=== PATIENT | female | born 1955 | race Two or more races ===

== ENCOUNTER 2016-06-21 18:13 | Emergency (ER) | payer MEDICARE, MEDICAID ==
[~2016-06-21] VITALS: Ht 162.6 cm; Wt 88.9 kg
[~2016-06-21 18:13] MED LIST: ASPI-231 PO; CARI-277 PO; DIPH25CA66 PO; ENAL2.5T PO; GABA300C8 PO; METF-312 PO; METO25TA5 PO; NOR10T PO; OLAN10TA29 PO; OMEP20CA5 PO; SIMV-8 PO
[2016-06-21 18:30] VITALS: BP 108/48
[2016-06-21 19:25] LABS: Basophils # (auto) 0 uL; Basophils % (auto) 0.3 % (0.0-2.0); Eosinophils # (auto) 0.2 uL; Hematocrit 45.3 % (36.0-46.0); Hemoglobin 14.7 g/dL (12.2-16.2); Lymphocytes # (auto) 3.6 uL; Lymphocytes % (auto) 36.8 % (10.0-50.0); Mean Corpuscular Hemoglobin 27.5 pg (28.0-32.0); Mean Corpuscular Hgb Conc. 32.4 g/dL (32.0-36.0); Mean Platelet Volume 8.1 fL (7.4-10.4); Monocytes # (auto) 0.6 uL; Monocytes % (auto) 6.1 % (0.0-12.0); Neutrophils # (auto) 5.3 uL; Neutrophils % (auto) 54.8 % (37.0-80.0); Platelet Count (auto) 341 10^3/uL (140-450); Red Cell Distribution Width 13.2 % (11.6-16.0); SUSPECT VIEW TRANSMISSION; White Blood Cell 9.7 10^3/uL (4.4-10.8)
[2016-06-21 19:52] LABS: Albumin 3.9 g/dL (3.4-5.0); BUN/Creatinine Ratio 15.7; Bilirubin, Total 0.2 mg/dL (0.2-1.0); Calcium 9.2 mg/dL (8.5-10.1); Magnesium 1.9 mg/dL (1.6-2.6); Potassium 3.9 mmol/L (3.5-5.1); Total Protein 7.1 g/dL (6.4-8.2)
== END 2016-06-22 00:28 | disposition left against medical advice (07) ==
LOC: ER 18:17
DX: R79.9 Abnormal finding of blood chemistry, unspecified (principal); Z53.21 Procedure and treatment not carried out due to patient leaving prior to being seen by health care provider
CPT/HCPCS: 36415; 80053; 83735; 84484; 85025

== ENCOUNTER 2016-07-19 16:20 | Emergency (ER) | payer MEDICARE, MEDICAID ==
[~2016-07-19] VITALS: Ht 162.6 cm; Wt 89.4 kg
[2016-07-19 17:30] VITALS: BP 132/66
== END 2016-07-19 17:49 | disposition home or self-care (01) ==
LOC: ER 16:27
DX: G89.4 Chronic pain syndrome (principal); Z76.0 Encounter for issue of repeat prescription; Z88.1 Allergy status to other antibiotic agents; Z79.899 Other long term (current) drug therapy; Z79.82 Long term (current) use of aspirin; M32.9 Systemic lupus erythematosus, unspecified; J45.909 Unspecified asthma, uncomplicated; J44.9 Chronic obstructive pulmonary disease, unspecified; E11.9 Type 2 diabetes mellitus without complications; I10 Essential (primary) hypertension; I25.2 Old myocardial infarction; F20.9 Schizophrenia, unspecified; I25.10 Atherosclerotic heart disease of native coronary artery without angina pectoris; M79.7 Fibromyalgia; F17.210 Nicotine dependence, cigarettes, uncomplicated

== ENCOUNTER 2016-08-27 15:30 | Emergency (ER) | payer MEDICARE, MEDICAID ==
[~2016-08-27] VITALS: Ht 162.6 cm; Wt 84.8 kg
[2016-08-27 15:39] VITALS: BP 106/68
[2016-08-27 16:32] LABS: Urine Bilirubin Negative (Negative); Urine Color Brown (Yellow); Urine Hyaline Cast MANY /lpf (0 - 2); Urine Ketone TRACE (Negative); Urine Mucus FEW (None Seen); Urine Nitrite Negative (Negative); Urine RBC 658 /hpf (0 - 4); Urine Squamous Epithelial Cell MOD /hpf (<5)
[2016-08-27 16:39] LABS: Urine Blood 2+ /uL (Negative); Urine Glucose 1+ mg/dL (Normal)
== END 2016-08-27 23:14 | disposition left against medical advice (07) ==
LOC: ER 15:30
DX: R22.0 Localized swelling, mass and lump, head (principal); Z53.21 Procedure and treatment not carried out due to patient leaving prior to being seen by health care provider
CPT/HCPCS: 81001; 87086

== ENCOUNTER 2017-04-17 14:26 | Emergency (ER) | payer MEDICARE, MEDICAID ==
[~2017-04-17] VITALS: Ht 162.6 cm; Wt 86.2 kg
[~2017-04-17 14:26] MED LIST changes: +GABA-497 PO; -GABA300C8 PO; -METF-312 PO; +METF-370 PO; -OMEP20CA5 PO; +OMEP20CA74 PO
[2017-04-17] MEDS ORDERED: ASPirin 81 mg TAB PO ONE (15:00)
[2017-04-17 15:07] LABS: Basophils # (auto) 0 uL; Basophils % (auto) 0.3 % (0.0-2.0); Eosinophils # (auto) 0.1 uL; Eosinophils % (auto) 1.4 % (0.0-7.0); Hemoglobin 11.9 g/dL (12.2-16.2); Lymphocytes # (auto) 3.8 uL; Mean Corpuscular Hgb Conc. 31.6 g/dL (32.0-36.0); Mean Platelet Volume 7.5 fL (6.9-10.8); Nucleated Red Blood Cells % 0.1 %
[2017-04-17 15:09] LABS: Hematocrit 37.6 % (36.0-46.0); Lymphocytes % (auto) 43.4 % (10.0-50.0); Mean Corpuscular Hemoglobin 23.6 pg (28.0-32.0); Mean Corpuscular Volume 74.7 fL (80.0-100.0); Monocytes # (auto) 0.6 uL; Neutrophils # (auto) 4.2 uL; Neutrophils % (auto) 47.9 % (37.0-80.0); Platelet Count (auto) 304 10^3/uL (140-450); Red Cell Distribution Width 18.8 % (11.8-14.3); White Blood Cell 8.8 10^3/uL (4.4-10.8)
[2017-04-17 15:28] LABS: Albumin 3.5 g/dL (3.4-5.0); Alkaline Phosphatase 105 U/L (45-117); Anion Gap 12 (5-15); Aspartate Aminotransferase 9 U/L (15-37); BUN/Creatinine Ratio 17.3; Bilirubin, Total 0.3 mg/dL (0.2-1.0); Blood Urea Nitrogen 9 mg/dL (7-18); Calcium 9.1 mg/dL (8.5-10.1); Carbon Dioxide 22 mmol/L (21-32); Chloride 106 mmol/L (98-107); GFR African American 155 mL/min; GFR Non-African American 128 mL/min; Glucose 133 mg/dL (74-106); Potassium 4.1 mmol/L (3.5-5.1); Sodium 140 mmol/L (136-145); Total Protein 6.6 g/dL (6.4-8.2)
[2017-04-17] MEDS ORDERED: HYDROcodone-ACET 5/325MG TAB PO ONE (16:30)
[2017-04-17 16:55] VITALS: BP 116/67
[2017-04-17 17:43] LABS: Platelet Estimate Adequate
[2017-04-17 17:44] LABS: Hypochromia Moderate; Microcytosis Slight
== END 2017-04-17 18:00 | disposition home or self-care (01) ==
LOC: EDBD 14:26 → ER 14:26
DX: R07.89 Other chest pain (principal); E11.9 Type 2 diabetes mellitus without complications; I10 Essential (primary) hypertension; J45.909 Unspecified asthma, uncomplicated; I25.2 Old myocardial infarction; I25.10 Atherosclerotic heart disease of native coronary artery without angina pectoris; Z88.1 Allergy status to other antibiotic agents; Z90.710 Acquired absence of both cervix and uterus; Z79.899 Other long term (current) drug therapy
CPT/HCPCS: 36415; 71010; 80053; 84484; 85025

== ENCOUNTER 2017-07-18 02:10 | Emergency (ER) | payer MEDICARE, MEDICAID ==
[~2017-07-18] VITALS: Ht 160 cm; Wt 90.7 kg
[~2017-07-18 02:10] MED LIST changes: -GABA-497 PO; +GABA300C10 PO
[2017-07-18] MEDS ORDERED: IBUPROFEN 600 MG TAB PO ONE (02:30)
[2017-07-18] MEDS ORDERED: ACETAMINOPHEN 500 MG TAB PO ONE (02:30)
[2017-07-18 02:47] LABS: Eosinophils # (auto) 0 uL; Mean Corpuscular Hemoglobin 24.6 pg (28.0-32.0); Monocytes # (auto) 1.8 uL; Nucleated Red Blood Cells % 0.1 %; White Blood Cell 13.5 10^3/uL (4.4-10.8)
[2017-07-18 02:50] LABS: Basophils # (auto) 0.1 uL; Basophils % (auto) 0.4 % (0.0-2.0); Eosinophils % (auto) 0.1 % (0.0-7.0); Hematocrit 36.4 % (36.0-46.0); Hemoglobin 11.7 g/dL (12.2-16.2); Lymphocytes # (auto) 1.6 uL; Lymphocytes % (auto) 11.8 % (10.0-50.0); Mean Corpuscular Hgb Conc. 32.1 g/dL (32.0-36.0); Mean Corpuscular Volume 76.5 fL (80.0-100.0); Monocytes % (auto) 13.2 % (0.0-12.0); Neutrophils # (auto) 10.1 uL; Neutrophils % (auto) 74.5 % (37.0-80.0); Platelet Count (auto) 232 10^3/uL (140-450); Red Blood Cells 4.76 10^6/uL (4.0-5.20); Red Cell Distribution Width 19.9 % (11.8-14.3)
[2017-07-18 03:13] LABS: Alanine Aminotransferase 14 U/L (13-56); Albumin 3.2 g/dL (3.4-5.0); Anion Gap 7 (5-15); Aspartate Aminotransferase 10 U/L (15-37); BUN/Creatinine Ratio 12.7; Blood Urea Nitrogen 7 mg/dL (7-18); Calcium 8.6 mg/dL (8.5-10.1); Carbon Dioxide 27 mmol/L (21-32); Chloride 109 mmol/L (98-107); GFR African American 145 mL/min; GFR Non-African American 119 mL/min; Glucose 152 mg/dL (74-106); Potassium 3.7 mmol/L (3.5-5.1); Sodium 143 mmol/L (136-145)
[2017-07-18 03:17] LABS: Alkaline Phosphatase 87 U/L (45-117); Bilirubin, Total 0.3 mg/dL (0.2-1.0); Total Protein 6.7 g/dL (6.4-8.2)
[2017-07-18 03:30] LABS: INR 0.97 (0.9-1.15); Partial Thromboplastin Time 26.3 sec (22.64-33.71); Prothrombin Time 10.6 sec (9.37-12.3)
[2017-07-18] MEDS ORDERED: SODIUM CHLORIDE 0.9% 1,000 ML IV ONE (08:01)
[2017-07-18] MEDS ORDERED: ASPirin 81 mg TAB PO ONE (08:15)
[2017-07-18] MEDS ORDERED: PROMETHAZINE HCL 25 MG/ML 1ML IV ONE (12:15)
[2017-07-18] MEDS ORDERED: KETOROLAC TROMETH 30 MG/ML 1ML VIAL IV ONE (12:15)
[2017-07-18 14:57] VITALS: BP 126/69
== END 2017-07-18 17:37 | disposition home or self-care (01) ==
LOC: EDBD 02:10 → ER 02:17
DX: R07.89 Other chest pain (principal); E11.65 Type 2 diabetes mellitus with hyperglycemia; N39.0 Urinary tract infection, site not specified; K44.9 Diaphragmatic hernia without obstruction or gangrene; E44.1 Mild protein-calorie malnutrition; J45.909 Unspecified asthma, uncomplicated; I25.10 Atherosclerotic heart disease of native coronary artery without angina pectoris; I50.9 Heart failure, unspecified; J44.9 Chronic obstructive pulmonary disease, unspecified; K21.9 Gastro-esophageal reflux disease without esophagitis; E11.9 Type 2 diabetes mellitus without complications; E78.5 Hyperlipidemia, unspecified; I11.0 Hypertensive heart disease with heart failure; I25.2 Old myocardial infarction; F17.210 Nicotine dependence, cigarettes, uncomplicated; Z90.49 Acquired absence of other specified parts of digestive tract; E66.9 Obesity, unspecified; Z68.35 Body mass index [BMI] 35.0-35.9, adult; Z90.710 Acquired absence of both cervix and uterus; Z79.82 Long term (current) use of aspirin
CPT/HCPCS: 36415; 71046; 80053; 81002; 83735; 83880; 84443; 84484; 85025; 85610; 85730; 93005; 94761; 96361; 96374; 96375; 99285; J1885; J2550; J7030

== ENCOUNTER 2017-07-26 21:33 | Emergency (ER) | payer MEDICARE, MEDICAID ==
[~2017-07-26] VITALS: Ht 162.6 cm; Wt 79.8 kg
[2017-07-26 22:50] VITALS: BP 108/53
[2017-07-26] MEDS ORDERED: TRIAMCINOLONE 40MG/ML 1ML VIAL IM ONE (23:00)
== END 2017-07-26 23:49 | disposition home or self-care (01) ==
LOC: ER 21:33
DX: T78.40XA Allergy, unspecified, initial encounter (principal); N39.0 Urinary tract infection, site not specified; I11.0 Hypertensive heart disease with heart failure; I50.9 Heart failure, unspecified; K21.9 Gastro-esophageal reflux disease without esophagitis; J44.9 Chronic obstructive pulmonary disease, unspecified; I25.10 Atherosclerotic heart disease of native coronary artery without angina pectoris; F17.210 Nicotine dependence, cigarettes, uncomplicated; E11.9 Type 2 diabetes mellitus without complications; E78.5 Hyperlipidemia, unspecified; Z90.710 Acquired absence of both cervix and uterus; Z79.82 Long term (current) use of aspirin; Z88.1 Allergy status to other antibiotic agents
CPT/HCPCS: 96372; 99283; J3301

== ENCOUNTER 2017-10-05 00:13 | Emergency (ER) | payer MEDICAID, MEDICARE ==
[~2017-10-05] VITALS: Ht 162.6 cm; Wt 73.9 kg
[2017-10-05 01:28] LABS: Basophils # (auto) 0.1 uL; Eosinophils # (auto) 0.1 uL; Mean Corpuscular Hemoglobin 25.3 pg (28.0-32.0); Monocytes # (auto) 0.8 uL
[2017-10-05 01:30] LABS: Basophils % (auto) 0.6 % (0.0-2.0); Eosinophils % (auto) 1.1 % (0.0-7.0); Hematocrit 42.5 % (36.0-46.0); Hemoglobin 13.7 g/dL (12.2-16.2); Lymphocytes # (auto) 2.2 uL; Lymphocytes % (auto) 26.5 % (10.0-50.0); Mean Corpuscular Hgb Conc. 32.3 g/dL (32.0-36.0); Mean Corpuscular Volume 78.3 fL (80.0-100.0); Monocytes % (auto) 9.4 % (0.0-12.0); Neutrophils # (auto) 5.2 uL; Neutrophils % (auto) 62.4 % (37.0-80.0); Nucleated Red Blood Cells % 0.2 %; Platelet Count (auto) 327 10^3/uL (140-450); Red Blood Cells 5.43 10^6/uL (4.0-5.20); Red Cell Distribution Width 18.9 % (11.8-14.3); White Blood Cell 8.3 10^3/uL (4.4-10.8)
[2017-10-05 01:35] LABS: INR 0.88 (0.9-1.15); Partial Thromboplastin Time 25.4 sec (22.64-33.71); Prothrombin Time 9.6 sec (9.37-12.3)
[2017-10-05 01:42] LABS: Albumin 3.3 g/dL (3.4-5.0); Amylase 47 U/L (25-115); Anion Gap 12 (5-15); BUN/Creatinine Ratio 17.3; Blood Urea Nitrogen 9 mg/dL (7-18); Calcium 8.8 mg/dL (8.5-10.1); Carbon Dioxide 23 mmol/L (21-32); Chloride 106 mmol/L (98-107); GFR African American 154 mL/min; GFR Non-African American 127 mL/min; Glucose 209 mg/dL (74-106); Lipase 210 U/L (73-393); Magnesium 2.1 mg/dL (1.6-2.6); Sodium 141 mmol/L (136-145)
[2017-10-05 01:51] LABS: Alanine Aminotransferase 24 U/L (13-56); Alkaline Phosphatase 117 U/L (45-117); Aspartate Aminotransferase 21 U/L (15-37); Bilirubin, Total 0.2 mg/dL (0.2-1.0); Total Protein 6.6 g/dL (6.4-8.2)
[2017-10-05 01:52] LABS: Urine Bacteria FEW /hpf (None Seen); Urine Blood 1+ /uL (Negative); Urine Specific Gravity 1.012 (1.001-1.035); Urine WBC 2 /hpf (0 - 5)
[2017-10-05 06:12] VITALS: BP 103/81
[2017-10-05] MEDS ORDERED: SODIUM CHLORIDE 0.9% 1,000 ML IV ONE ×2 (06:54)
[2017-10-05] MEDS ORDERED: KETOROLAC TROMETH 30 MG/ML 1ML VIAL IV ONE (07:00)
== END 2017-10-05 09:08 | disposition home or self-care (01) ==
LOC: ER 00:13
DX: N20.0 Calculus of kidney (principal); J45.909 Unspecified asthma, uncomplicated; I25.10 Atherosclerotic heart disease of native coronary artery without angina pectoris; I50.9 Heart failure, unspecified; J44.9 Chronic obstructive pulmonary disease, unspecified; E11.9 Type 2 diabetes mellitus without complications; K21.9 Gastro-esophageal reflux disease without esophagitis; E78.5 Hyperlipidemia, unspecified; I11.0 Hypertensive heart disease with heart failure; F17.210 Nicotine dependence, cigarettes, uncomplicated; R05 Cough; I25.2 Old myocardial infarction; Z88.1 Allergy status to other antibiotic agents; Z79.899 Other long term (current) drug therapy; Z79.82 Long term (current) use of aspirin; Z90.710 Acquired absence of both cervix and uterus; Z90.49 Acquired absence of other specified parts of digestive tract
CPT/HCPCS: 36415; 71046; 74176; 80053; 81001; 82150; 83690; 83735; 84484; 85025; 85610; 85730; 93005; 96374; 99285; J1885

== ENCOUNTER 2017-10-12 20:43 | Inpatient (IN) | payer MEDICARE ==
[~2017-10-12] VITALS: Ht 162.6 cm; Wt 77.9 kg
[2017-10-12 22:30] LABS: Basophils # (auto) 0 uL; Eosinophils # (auto) 0.1 uL; Hematocrit 41.7 % (36.0-46.0); Nucleated Red Blood Cells % 0.1 %
[2017-10-12 22:31] LABS: Basophils % (auto) 0.4 % (0.0-2.0); Eosinophils % (auto) 1.2 % (0.0-7.0); Hemoglobin 13.4 g/dL (12.2-16.2); Lymphocytes % (auto) 33.1 % (10.0-50.0); Mean Corpuscular Hemoglobin 25.4 pg (28.0-32.0); Mean Corpuscular Hgb Conc. 32.2 g/dL (32.0-36.0); Mean Corpuscular Volume 78.8 fL (80.0-100.0); Monocytes # (auto) 0.8 uL; Monocytes % (auto) 8.5 % (0.0-12.0); Neutrophils # (auto) 5.1 uL; Neutrophils % (auto) 56.8 % (37.0-80.0); Platelet Count (auto) 290 10^3/uL (140-450); Red Cell Distribution Width 18.3 % (11.8-14.3); White Blood Cell 9.1 10^3/uL (4.4-10.8)
[2017-10-12 22:48] LABS: Alanine Aminotransferase 20 U/L (13-56); Albumin 3.3 g/dL (3.4-5.0); Amylase 39 U/L (25-115); Anion Gap 10 (5-15); Aspartate Aminotransferase 8 U/L (15-37); BUN/Creatinine Ratio 13.6; Blood Urea Nitrogen 6 mg/dL (7-18); Calcium 8.8 mg/dL (8.5-10.1); Carbon Dioxide 23 mmol/L (21-32); Chloride 106 mmol/L (98-107); GFR African American 187 mL/min; GFR Non-African American 155 mL/min; Glucose 167 mg/dL (74-106); Lipase 167 U/L (73-393); Potassium 3.7 mmol/L (3.5-5.1); Sodium 139 mmol/L (136-145)
[2017-10-12 22:53] LABS: Alkaline Phosphatase 102 U/L (45-117); Bilirubin, Total 0.3 mg/dL (0.2-1.0); INR 0.92 (0.9-1.15); Total Protein 7.1 g/dL (6.4-8.2)
[2017-10-13 01:12] LABS: Urine Bacteria NONE SEEN /hpf (None Seen); Urine Blood Negative /uL (Negative); Urine Specific Gravity 1.016 (1.001-1.035); Urine WBC 1 /hpf (0 - 5)
[2017-10-13] MEDS ORDERED: METOCLOPRAMIDE HCL 5MG/ml INJ 2ml VIAL IV ONE (08:00)
[2017-10-13] MEDS ORDERED: KETOROLAC TROMETH 30 MG/ML 1ML VIAL IV ONE (08:00)
[2017-10-13] MEDS ORDERED: NITROGLYCERIN 0.4 MG SL TAB SL PRN (08:30)
[2017-10-13] MEDS ORDERED: MORPHINE SULFATE 8mg/ml INJ SDV IV PRN ×2 (08:30→08:45)
[2017-10-13] MEDS ORDERED: ACETAMINOPHEN 500 MG TAB PO PRN (08:45)
[2017-10-13] MEDS ORDERED: LORazepam 0.5 MG TAB PO PRN (08:45)
[2017-10-13] MEDS: SODIUM CHLORIDE 0.9% 1,000 ML IV SCH ×2 (08:59→18:31)
[2017-10-13 10:30] VITALS: BP 133/76
[2017-10-13] MEDS ORDERED: MANNITOL 20 % (20GM/100ML) 62.5 ML IV ONE (10:30)
[2017-10-13] MEDS: HYDROcodone-ACET 5/325MG TAB PO PRN (12:45)
[2017-10-13 13:00] VITALS: BP 133/76
[2017-10-13] MEDS: OXYBUTYNIN CHL 5 MG TAB PO SCH ×2 (15:33→21:51)
[2017-10-13 16:40] VITALS: BP 118/75
[2017-10-13] MEDS: MORPHINE SULFATE 8mg/ml INJ SDV IV PRN ×2 (16:58→21:00)
[2017-10-13 20:00] VITALS: BP 123/73
[2017-10-13 22:00] VITALS: BP 123/73
[2017-10-14] MEDS: MORPHINE SULFATE 8mg/ml INJ SDV IV PRN ×3 (01:29→20:28)
[2017-10-14] MEDS: SODIUM CHLORIDE 0.9% 1,000 ML IV SCH ×3 (04:31→23:43)
[2017-10-14 05:22] VITALS: BP 102/53
[2017-10-14] MEDS: OXYBUTYNIN CHL 5 MG TAB PO SCH ×3 (05:32→21:30)
[2017-10-14 09:13] VITALS: BP 102/58
[2017-10-14] MEDS: HYDROcodone-ACET 5/325MG TAB PO PRN ×3 (09:52→23:32)
[2017-10-14 13:00] VITALS: BP 102/60
[2017-10-14] MEDS: PROMETHAZINE HCL 25 MG/ML 1ML IV PRN (13:14)
[2017-10-14] MEDS ORDERED: MANNITOL 20% SOLN 100 gm/500ml 100 ML IV ONE (15:45)
[2017-10-14 17:10] VITALS: BP 124/72
[2017-10-14] MEDS ORDERED: PANTOPRAZOLE 40 MG TAB PO ONE ×2 (17:13→18:22)
[2017-10-14] MEDS ORDERED: LEVOFLOXACIN 500MG 100 ML IV ONE (18:15)
[2017-10-14] MEDS ORDERED: TAMSULOSIN HYDROCHLORIDE 0.4 MG CAP PO ONE (18:15)
[2017-10-14 20:00] VITALS: BP 115/66
[2017-10-14 22:00] VITALS: BP 112/62
[2017-10-15] MEDS: MORPHINE SULFATE 8mg/ml INJ SDV IV PRN ×5 (00:40→21:47)
[2017-10-15 05:00] VITALS: BP 109/70
[2017-10-15] MEDS: OXYBUTYNIN CHL 5 MG TAB PO SCH ×3 (05:44→21:47)
[2017-10-15 06:55] LABS: Basophils # (auto) 0 uL; Eosinophils # (auto) 0.1 uL; Hemoglobin 12.3 g/dL (12.2-16.2); Mean Corpuscular Hemoglobin 25.2 pg (28.0-32.0); Mean Corpuscular Volume 78.9 fL (80.0-100.0); Monocytes # (auto) 0.6 uL
[2017-10-15 06:58] LABS: Basophils % (auto) 0.2 % (0.0-2.0); Eosinophils % (auto) 1.5 % (0.0-7.0); Hematocrit 38.4 % (36.0-46.0); Lymphocytes # (auto) 1.7 uL; Monocytes % (auto) 8.1 % (0.0-12.0); Neutrophils # (auto) 4.6 uL; Neutrophils % (auto) 65.2 % (37.0-80.0); Nucleated Red Blood Cells % 0.1 %; Platelet Count (auto) 243 10^3/uL (140-450); Red Blood Cells 4.87 10^6/uL (4.0-5.20); Red Cell Distribution Width 18.3 % (11.8-14.3)
[2017-10-15 07:08] LABS: BUN/Creatinine Ratio 32.1; Calcium 8.4 mg/dL (8.5-10.1)
[2017-10-15 07:58] VITALS: BP 122/64
[2017-10-15] MEDS: HYDROcodone-ACET 5/325MG TAB PO PRN ×2 (09:15→15:33)
[2017-10-15] MEDS: LEVOFLOXACIN 500MG 100 ML IV SCH (09:15)
[2017-10-15] MEDS: SODIUM CHLORIDE 0.9% 1,000 ML IV SCH ×2 (09:16→20:31)
[2017-10-15 11:56] VITALS: BP 106/58
[2017-10-15] MEDS: diphenhdrAMINE HCL 25 MG CAP PO PRN (12:19)
[2017-10-15] MEDS ORDERED: POTASSIUM CHL 20 Meq TABLET PO ONE (13:00)
[2017-10-15 16:02] VITALS: BP 102/59
[2017-10-15] MEDS ORDERED: KETOROLAC TROMETH 30 MG/ML 1ML VIAL IV ONE (21:30)
[2017-10-15 22:00] VITALS: BP 116/55
[2017-10-16] MEDS: MORPHINE SULFATE 8mg/ml INJ SDV IV PRN ×5 (02:01→23:35)
[2017-10-16] MEDS: HYDROcodone-ACET 10/325MG TAB PO PRN ×3 (02:56→21:23)
[2017-10-16 05:00] VITALS: BP 125/64
[2017-10-16 05:58] LABS: INR 0.93 (0.9-1.15); Partial Thromboplastin Time 26.6 sec (23.78-33.04)
[2017-10-16] MEDS: SODIUM CHLORIDE 0.9% 1,000 ML IV SCH ×2 (06:00→17:11)
[2017-10-16] MEDS: OXYBUTYNIN CHL 5 MG TAB PO SCH ×3 (06:00→21:23)
[2017-10-16 06:06] LABS: BUN/Creatinine Ratio 26.2; Calcium 8.5 mg/dL (8.5-10.1); Potassium 4.1 mmol/L (3.5-5.1)
[2017-10-16 06:08] LABS: Basophils # (auto) 0 uL; Basophils % (auto) 0.3 % (0.0-2.0); Eosinophils # (auto) 0.1 uL; Hemoglobin 12.2 g/dL (12.2-16.2); Lymphocytes # (auto) 2.2 uL; Monocytes # (auto) 0.8 uL; White Blood Cell 8.5 10^3/uL (4.4-10.8)
[2017-10-16 06:09] LABS: Eosinophils % (auto) 1.7 % (0.0-7.0); Hematocrit 37.9 % (36.0-46.0); Lymphocytes % (auto) 25.3 % (10.0-50.0); Mean Corpuscular Hemoglobin 25.6 pg (28.0-32.0); Mean Corpuscular Hgb Conc. 32.2 g/dL (32.0-36.0); Mean Corpuscular Volume 79.4 fL (80.0-100.0); Neutrophils # (auto) 5.4 uL; Neutrophils % (auto) 63.7 % (37.0-80.0); Nucleated Red Blood Cells % 0.1 %; Platelet Count (auto) 238 10^3/uL (140-450); Red Blood Cells 4.77 10^6/uL (4.0-5.20); Red Cell Distribution Width 18.4 % (11.8-14.3)
[2017-10-16 08:29] VITALS: BP 102/48
[2017-10-16] MEDS: LEVOFLOXACIN 500MG 100 ML IV SCH (10:25)
[2017-10-16] MEDS: diphenhdrAMINE HCL 25 MG CAP PO PRN (10:25)
[2017-10-16 12:55] VITALS: BP 97/51
[2017-10-16] MEDS ORDERED: LIDOCAINE 1% (LOCAL ANESTH.) PF 5ml SDV ONE (14:34)
[2017-10-16] MEDS ORDERED: ETOMIDATE (2MG/ML) 20ML VIAL IV ONE (14:36)
[2017-10-16] MEDS ORDERED: ROCURONIUM 10MG/ML 10ML VIAL IV ONE (14:36)
[2017-10-16] MEDS ORDERED: MIDAZOLAM HCL 1MG/1ML-2 ML VIAL ONE (14:36)
[2017-10-16] MEDS ORDERED: METOCLOPRAMIDE HCL 5MG/ml INJ 2ml VIAL ONE (14:40)
[2017-10-16] MEDS ORDERED: fentaNYL CITRATE 100 MCG/2 ML VL ONE (14:47)
[2017-10-16] MEDS ORDERED: ONDANSETRON HCL 4 MG/2 ML VIAL IV ONE (15:00)
[2017-10-16] MEDS ORDERED: NALOXONE HCL 0.4 MG/ML VIAL IV PRN (15:00)
[2017-10-16] MEDS ORDERED: ACCU-CHEK COMFORT CURVE STRIP VI ONE (15:00)
[2017-10-16] MEDS ORDERED: GLYCOPYRROLATE 0.2 MG/ML 1ML VIAL ONE (15:33)
[2017-10-16] MEDS ORDERED: NEOSTIGMINE 1 MG/ML INJ (10mg/10ML VIAL) ONE (15:33)
[2017-10-16] MEDS: MORPHINE SULFATE 4 MG/ML SYR/VIAL IV PRN ×2 (16:00→16:15)
[2017-10-16 17:32] VITALS: BP 106/51
[2017-10-16] MEDS: TEMAZEPAM 15 MG CAP PO PRN (21:23)
[2017-10-16 22:00] VITALS: BP 113/64
[2017-10-16] MEDS: PROMETHAZINE HCL 25 MG/ML 1ML IV PRN (23:35)
[2017-10-17] MEDS: SODIUM CHLORIDE 0.9% 1,000 ML IV SCH ×2 (04:23→12:41)
[2017-10-17] MEDS: MORPHINE SULFATE 8mg/ml INJ SDV IV PRN ×5 (04:23→20:40)
[2017-10-17 05:45] VITALS: BP 103/57
[2017-10-17] MEDS: OXYBUTYNIN CHL 5 MG TAB PO SCH ×3 (06:18→21:38)
[2017-10-17 09:00] VITALS: BP 123/71
[2017-10-17] MEDS: LEVOFLOXACIN 500MG 100 ML IV SCH (09:48)
[2017-10-17] MEDS: diphenhdrAMINE HCL 25 MG CAP PO PRN ×2 (09:49→21:42)
[2017-10-17] MEDS: HYDROcodone-ACET 10/325MG TAB PO PRN ×2 (10:56→19:22)
[2017-10-17 13:00] VITALS: BP 99/55
[2017-10-17 17:18] VITALS: BP 97/54
[2017-10-17] MEDS: TEMAZEPAM 15 MG CAP PO PRN (21:38)
[2017-10-17 22:00] VITALS: BP 111/63
[2017-10-18] MEDS: MORPHINE SULFATE 8mg/ml INJ SDV IV PRN ×4 (00:52→14:17)
[2017-10-18 05:00] VITALS: BP 101/59
[2017-10-18] MEDS: OXYBUTYNIN CHL 5 MG TAB PO SCH ×2 (05:30→14:17)
[2017-10-18] MEDS: diphenhdrAMINE HCL 25 MG CAP PO PRN ×2 (05:32→11:47)
[2017-10-18] MEDS: HYDROcodone-ACET 10/325MG TAB PO PRN (08:58)
[2017-10-18 09:00] VITALS: BP 108/64
[2017-10-18] MEDS: LEVOFLOXACIN 500MG 100 ML IV SCH (12:42)
[2017-10-18 13:00] VITALS: BP 111/69
== END 2017-10-18 16:00 | disposition home or self-care (01) | DRG 691 ==
LOC: ER 20:43 → TELE 20:44 → TELE-WESTW 10-13 09:59 → WEST WING 10-15 12:58
PROVIDERS: ADMIT Internal Medicine; ATTEND Internal Medicine
PROC: 0T768DZ Dilation of Right Ureter with Intraluminal Device, Via Natural or Artificial Opening Endoscopic (ICD-10-PCS; 2017-10-16)
PROC: 0TF6XZZ Fragmentation in Right Ureter, External Approach (ICD-10-PCS; principal; 2017-10-16 14:35)
DX: N13.0 Hydronephrosis with ureteropelvic junction obstruction (principal); E11.40 Type 2 diabetes mellitus with diabetic neuropathy, unspecified; M32.9 Systemic lupus erythematosus, unspecified; I11.0 Hypertensive heart disease with heart failure; E11.65 Type 2 diabetes mellitus with hyperglycemia; I50.9 Heart failure, unspecified; D57.1 Sickle-cell disease without crisis; N13.2 Hydronephrosis with renal and ureteral calculous obstruction; F20.9 Schizophrenia, unspecified; E78.5 Hyperlipidemia, unspecified; J44.9 Chronic obstructive pulmonary disease, unspecified; K44.9 Diaphragmatic hernia without obstruction or gangrene; K21.9 Gastro-esophageal reflux disease without esophagitis; E66.9 Obesity, unspecified; F32.9 Major depressive disorder, single episode, unspecified; F41.9 Anxiety disorder, unspecified; G47.00 Insomnia, unspecified; I70.8 Atherosclerosis of other arteries; I25.10 Atherosclerotic heart disease of native coronary artery without angina pectoris; F17.210 Nicotine dependence, cigarettes, uncomplicated; M79.7 Fibromyalgia; Z82.3 Family history of stroke; Z82.49 Family history of ischemic heart disease and other diseases of the circulatory system; Z83.3 Family history of diabetes mellitus; Z90.710 Acquired absence of both cervix and uterus; Z88.1 Allergy status to other antibiotic agents; Z79.899 Other long term (current) drug therapy; I25.2 Old myocardial infarction; Z90.49 Acquired absence of other specified parts of digestive tract; Z80.8 Family history of malignant neoplasm of other organs or systems; Z68.29 Body mass index [BMI] 29.0-29.9, adult
CPT/HCPCS: 36415; 71046; 74018; 74176; 76775; 80048; 80053; 81001; 82150; 82962; 83690; 83735; 84484; 85025; 85610; 85730; 86850; 86900; 86901; 87086; 93005; 96361; 96365; 96375; 97116; 97163; J1885; J1956; J2250; J2270

== ENCOUNTER 2017-11-07 02:49 | Inpatient (IN) | payer MEDICARE ==
[~2017-11-07] VITALS: Ht 162.6 cm; Wt 78.2 kg
[2017-11-07 04:26] LABS: Eosinophils % (auto) 1.3 % (0.0-7.0); Hematocrit 43.6 % (36.0-46.0); Lymphocytes # (auto) 3.1 uL; Lymphocytes % (auto) 35.1 % (10.0-50.0); Mean Corpuscular Hgb Conc. 32.1 g/dL (32.0-36.0); Mean Corpuscular Volume 78.5 fL (80.0-100.0); Monocytes % (auto) 7.9 % (0.0-12.0); Neutrophils % (auto) 55.4 % (37.0-80.0); Platelet Count (auto) 309 10^3/uL (140-450); Red Blood Cells 5.55 10^6/uL (4.0-5.20); Red Cell Distribution Width 18.7 % (11.8-14.3); White Blood Cell 8.9 10^3/uL (4.4-10.8)
[2017-11-07 04:30] LABS: Mean Corpuscular Hemoglobin 25.3 pg (28.0-32.0)
[2017-11-07 04:32] LABS: Basophils # (auto) 0 uL; Basophils % (auto) 0.3 % (0.0-2.0); Eosinophils # (auto) 0.1 uL; Monocytes # (auto) 0.7 uL; Nucleated Red Blood Cells % 0.1 %
[2017-11-07 04:40] LABS: Albumin 3.3 g/dL (3.4-5.0); Calcium 8.3 mg/dL (8.5-10.1); Potassium 3.7 mmol/L (3.5-5.1)
[2017-11-07 04:42] LABS: BUN/Creatinine Ratio 16.1
[2017-11-07 04:44] LABS: Bilirubin, Total 0.3 mg/dL (0.2-1.0); Total Protein 6.8 g/dL (6.4-8.2)
[2017-11-07] MEDS ORDERED: SODIUM CHLORIDE 0.9% 1,000 ML IV ONE (07:23)
[2017-11-07] MEDS ORDERED: PROMETHAZINE HCL 25 MG/ML 1ML IV PRN ×2 (07:30→10:30)
[2017-11-07] MEDS ORDERED: MORPHINE SULFATE 8mg/ml INJ SDV IV ONE (07:30)
[2017-11-07] MEDS ORDERED: KETOROLAC TROMETH 30 MG/ML 1ML VIAL IV ONE (07:30)
[2017-11-07 08:38] LABS: Urine Bacteria NONE SEEN /hpf (None Seen); Urine Blood Negative /uL (Negative); Urine WBC 1 /hpf (0 - 5)
[2017-11-07] MEDS ORDERED: DEXTROSE (50%) 50ML SYRG IV PRN (10:30)
[2017-11-07] MEDS ORDERED: NITROGLYCERIN 0.4 MG SL TAB SL PRN (10:30)
[2017-11-07] MEDS ORDERED: MORPHINE SULFATE 8mg/ml INJ SDV IV PRN (10:30)
[2017-11-07] MEDS ORDERED: HYDROcodone-ACET 5/325MG TAB PO PRN (10:30)
[2017-11-07] MEDS ORDERED: ACETAMINOPHEN 500 MG TAB PO PRN (10:30)
[2017-11-07] MEDS ORDERED: MORPHINE SULF(PF) 0.5MG/ML 10ML VIAL IV PRN (10:30)
[2017-11-07] MEDS ORDERED: LORazepam 0.5 MG TAB PO PRN (10:30)
[2017-11-07] MEDS ORDERED: TEMAZEPAM 15 MG CAP PO PRN (10:30)
[2017-11-07] MEDS: SODIUM CHLORIDE 0.9% 1,000 ML IV SCH ×2 (10:36→20:21)
[2017-11-07] MEDS: PANTOPRAZOLE 40 MG TAB PO SCH (10:40)
[2017-11-07] MEDS: ACCU-CHEK COMFORT CURVE STRIP VI SCH ×3 (11:48→22:36)
[2017-11-07] MEDS: InsuLIN REG 1unit/0.01ml Soln (100units/ml) SC SCH ×3 (11:55→22:36)
[2017-11-07] MEDS: CARISOPRODOL 350 MG TAB PO SCH ×2 (14:00→22:27)
[2017-11-07] MEDS: diphenhdrAMINE HCL 25 MG CAP PO PRN (14:42)
[2017-11-07] MEDS: MEPERIDINE HCL (25 MG/ML) 1ML VIAL IV PRN ×3 (14:43→23:37)
[2017-11-07 15:12] VITALS: BP 114/64
[2017-11-07 17:00] VITALS: BP 139/78
[2017-11-07 20:00] VITALS: BP 115/62
[2017-11-07 22:00] VITALS: BP 115/62
[2017-11-07] MEDS ORDERED: ATORVASTATIN 20 MG TAB PO SCH (22:00)
[2017-11-07] MEDS ORDERED: GABAPENTIN 300 MG CAP PO SCH (22:00)
[2017-11-07] MEDS ORDERED: OLANZapine 5 MG TAB PO SCH (22:00)
[2017-11-07] MEDS ORDERED: NITROFURANTOIN (MONO) 100 mg CAP PO SCH (22:00)
[2017-11-07] MEDS: METOPROLOL TARTRATE 25 MG TAB PO SCH (22:26)
[2017-11-07] MEDS: ENALAPRIL MALEATE 2.5 MG TAB PO SCH (22:27)
[2017-11-08] MEDS: MEPERIDINE HCL (25 MG/ML) 1ML VIAL IV PRN ×2 (05:15→13:15)
[2017-11-08] MEDS: CARISOPRODOL 350 MG TAB PO SCH ×2 (06:00→16:37)
[2017-11-08] MEDS: SODIUM CHLORIDE 0.9% 1,000 ML IV SCH ×2 (06:21→16:21)
[2017-11-08 06:29] VITALS: BP 107/58
[2017-11-08 06:43] LABS: INR 0.95 (0.9-1.15); Partial Thromboplastin Time 26.4 sec (23.78-33.04); Prothrombin Time 10.2 sec (9.27-12.13)
[2017-11-08] MEDS: ACCU-CHEK COMFORT CURVE STRIP VI SCH ×3 (06:54→17:00)
[2017-11-08] MEDS: InsuLIN REG 1unit/0.01ml Soln (100units/ml) SC SCH ×3 (06:54→17:00)
[2017-11-08] MEDS ORDERED: METOCLOPRAMIDE HCL 5MG/ml INJ 2ml VIAL IV ONE (07:30)
[2017-11-08] MEDS ORDERED: ACCU-CHEK COMFORT CURVE STRIP VI ONE (07:30)
[2017-11-08] MEDS ORDERED: fentaNYL CITRATE 100 MCG/2 ML VL IV ONE (08:00)
[2017-11-08] MEDS ORDERED: PROPOFOL 10 MG/ML 20 ML IV ONE (08:11)
[2017-11-08] MEDS ORDERED: ONDANSETRON HCL 4 MG/2 ML VIAL ONE (08:11)
[2017-11-08] MEDS ORDERED: SODIUM CHLORIDE LOCK 10 ML ONE (08:11)
[2017-11-08] MEDS ORDERED: MIDAZOLAM HCL 1MG/1ML-2 ML VIAL ONE (08:11)
[2017-11-08] MEDS ORDERED: fentaNYL CITRATE 100 MCG/2 ML VL ONE (08:11)
[2017-11-08] MEDS ORDERED: IOHEXOL 300 MG/ML 100ML BOTTLE IJ ONE (08:38)
[2017-11-08 10:25] VITALS: BP 113/62
[2017-11-08] MEDS: PANTOPRAZOLE 40 MG TAB PO SCH (10:32)
[2017-11-08] MEDS: METOPROLOL TARTRATE 25 MG TAB PO SCH (10:32)
[2017-11-08] MEDS: ENALAPRIL MALEATE 2.5 MG TAB PO SCH (10:33)
[2017-11-08 13:00] VITALS: BP 101/57
[2017-11-08] MEDS: diphenhdrAMINE HCL 25 MG CAP PO PRN (13:28)
[2017-11-08 17:26] VITALS: BP 98/57
[2017-11-08 18:13] VITALS: BP 98/57
== END 2017-11-08 20:45 | disposition home or self-care (01) | DRG 694 ==
LOC: ER 02:51 → TELE 02:52 → TELE-EAST 14:37
PROVIDERS: ADMIT Internal Medicine; ATTEND Family Medicine
PROC: BT1D1ZZ Fluoroscopy of Right Kidney, Ureter and Bladder using Low Osmolar Contrast (ICD-10-PCS; 2017-11-08)
PROC: 0T768DZ Dilation of Right Ureter with Intraluminal Device, Via Natural or Artificial Opening Endoscopic (ICD-10-PCS; principal; 2017-11-08 08:17)
DX: N13.2 Hydronephrosis with renal and ureteral calculous obstruction (principal); E44.1 Mild protein-calorie malnutrition; F11.20 Opioid dependence, uncomplicated; E11.65 Type 2 diabetes mellitus with hyperglycemia; K44.9 Diaphragmatic hernia without obstruction or gangrene; Z68.29 Body mass index [BMI] 29.0-29.9, adult; E78.00 Pure hypercholesterolemia, unspecified; E78.5 Hyperlipidemia, unspecified; F17.210 Nicotine dependence, cigarettes, uncomplicated; F20.9 Schizophrenia, unspecified; G89.29 Other chronic pain; I11.0 Hypertensive heart disease with heart failure; J44.9 Chronic obstructive pulmonary disease, unspecified; I50.9 Heart failure, unspecified; E66.9 Obesity, unspecified; F32.9 Major depressive disorder, single episode, unspecified; K21.9 Gastro-esophageal reflux disease without esophagitis; F41.9 Anxiety disorder, unspecified; G47.00 Insomnia, unspecified; K76.89 Other specified diseases of liver; M19.90 Unspecified osteoarthritis, unspecified site; I25.10 Atherosclerotic heart disease of native coronary artery without angina pectoris; I25.2 Old myocardial infarction; Z82.3 Family history of stroke; Z82.49 Family history of ischemic heart disease and other diseases of the circulatory system; Z83.3 Family history of diabetes mellitus; Z87.442 Personal history of urinary calculi; Z90.710 Acquired absence of both cervix and uterus; Z88.1 Allergy status to other antibiotic agents; Z79.899 Other long term (current) drug therapy; Z79.82 Long term (current) use of aspirin
CPT/HCPCS: 36415; 71045; 74018; 74176; 80053; 81001; 82962; 83036; 83690; 84443; 84702; 85025; 85610; 85730; 86850; 86900; 86901; 87081; 87086; 87088; 87186; 93005; 96361; 96374; 96375; J1815; J1885; J2250; J2405; J2704

== ENCOUNTER 2017-11-16 22:01 | Emergency (ER) | payer MEDICARE ==
[~2017-11-16] VITALS: Ht 162.6 cm; Wt 71.2 kg
[2017-11-16 23:05] LABS: Basophils # (auto) 0.1 uL; Basophils % (auto) 1.1 % (0.0-2.0); Eosinophils # (auto) 0.2 uL; Eosinophils % (auto) 2.1 % (0.0-7.0); Hematocrit 44.4 % (36.0-46.0); Hemoglobin 14.3 g/dL (12.2-16.2); Lymphocytes # (auto) 2.5 uL; Lymphocytes % (auto) 29.9 % (10.0-50.0); Mean Corpuscular Hgb Conc. 32.3 g/dL (32.0-36.0); Mean Corpuscular Volume 77.6 fL (80.0-100.0); Monocytes # (auto) 0.7 uL; Neutrophils # (auto) 4.9 uL; Neutrophils % (auto) 58.9 % (37.0-80.0); Nucleated Red Blood Cells % 0.1 %; Platelet Count (auto) 339 10^3/uL (140-450); Red Blood Cells 5.72 10^6/uL (4.0-5.20); Red Cell Distribution Width 18.8 % (11.8-14.3); White Blood Cell 8.2 10^3/uL (4.4-10.8)
[2017-11-16 23:19] LABS: Albumin 3.6 g/dL (3.4-5.0); BUN/Creatinine Ratio 14.1; Bilirubin, Total 0.3 mg/dL (0.2-1.0); Calcium 8.6 mg/dL (8.5-10.1)
[2017-11-16 23:20] LABS: Potassium 3.8 mmol/L (3.5-5.1)
[2017-11-17] MEDS ORDERED: SODIUM CHLORIDE 0.9% 1,000 ML IV ONE (02:45)
[2017-11-17] MEDS ORDERED: fentaNYL CITRATE 100 MCG/2 ML VL IV ONE (03:00)
[2017-11-17] MEDS ORDERED: PHENAZOPYRIDINE HCL 100 MG TAB PO ONE (03:00)
[2017-11-17 03:50] VITALS: BP 136/76
== END 2017-11-17 04:41 | disposition home or self-care (01) ==
LOC: ER 22:01
DX: N20.0 Calculus of kidney (principal); I11.0 Hypertensive heart disease with heart failure; I50.9 Heart failure, unspecified; J44.9 Chronic obstructive pulmonary disease, unspecified; I25.2 Old myocardial infarction; I20.9 Angina pectoris, unspecified; F17.210 Nicotine dependence, cigarettes, uncomplicated; Z79.899 Other long term (current) drug therapy; Z88.1 Allergy status to other antibiotic agents
CPT/HCPCS: 36415; 74176; 80053; 85025; 96374; 99285; J3010; J7030

== ENCOUNTER 2018-01-04 00:46 | Inpatient (IN) | payer MEDICARE ==
[~2018-01-04] VITALS: Ht 165.1 cm; Wt 71.9 kg
[~2018-01-04 00:46] MED LIST changes: -ASPI-231 PO; -ENAL2.5T PO; -METF-370 PO; -METO25TA5 PO; -SIMV-8 PO
[2018-01-04] MEDS ORDERED: MORPHINE SULFATE 4 MG/ML SYR/VIAL IV ONE ×3 (02:15→05:30)
[2018-01-04] MEDS ORDERED: ASPirin 81 mg TAB PO ONE (02:15)
[2018-01-04] MEDS ORDERED: KETOROLAC TROMETH 30 MG/ML 1ML VIAL IM ONE (02:15)
[2018-01-04] MEDS ORDERED: ONDANSETRON HCL 4 MG/2 ML VIAL IV ONE (02:15)
[2018-01-04 02:49] LABS: Basophils # (auto) 0 uL; Basophils % (auto) 0.4 % (0.0-2.0); Eosinophils # (auto) 0.1 uL; Monocytes # (auto) 0.6 uL
[2018-01-04 02:51] LABS: Eosinophils % (auto) 1.6 % (0.0-7.0); Hematocrit 42.6 % (36.0-46.0); Hemoglobin 13.6 g/dL (12.2-16.2); Lymphocytes # (auto) 3.1 uL; Lymphocytes % (auto) 35.2 % (10.0-50.0); Mean Corpuscular Hemoglobin 25.2 pg (28.0-32.0); Mean Corpuscular Hgb Conc. 31.9 g/dL (32.0-36.0); Monocytes % (auto) 6.5 % (0.0-12.0); Neutrophils % (auto) 56.3 % (37.0-80.0); Nucleated Red Blood Cells % 0.1 %; Platelet Count (auto) 230 10^3/uL (140-450); White Blood Cell 8.9 10^3/uL (4.4-10.8)
[2018-01-04 02:52] LABS: Red Cell Distribution Width 20.9 % (11.8-14.3)
[2018-01-04 03:03] LABS: INR 0.91 (0.9-1.15); Partial Thromboplastin Time 25.2 sec (23.78-33.04); Prothrombin Time 9.8 sec (9.27-12.13)
[2018-01-04 03:04] LABS: Albumin 3.2 g/dL (3.4-5.0); Anion Gap 10 (5-15); Aspartate Aminotransferase 13 U/L (15-37); BUN/Creatinine Ratio 17.8; Blood Urea Nitrogen 8 mg/dL (7-18); Calcium 8.4 mg/dL (8.5-10.1); Carbon Dioxide 27 mmol/L (21-32); Chloride 109 mmol/L (98-107); GFR African American 182 mL/min; GFR Non-African American 151 mL/min; Glucose 133 mg/dL (74-106); Magnesium 2.1 mg/dL (1.6-2.6); Potassium 3.7 mmol/L (3.5-5.1); Sodium 146 mmol/L (136-145)
[2018-01-04 03:15] LABS: Alanine Aminotransferase 24 U/L (13-56); Alkaline Phosphatase 109 U/L (45-117); Bilirubin, Total 0.2 mg/dL (0.2-1.0); Total Protein 6.2 g/dL (6.4-8.2)
[2018-01-04] MEDS ORDERED: LEVOFLOXACIN 750MG 150 ML IV ONE (05:30)
[2018-01-04] MEDS ORDERED: DEXTROSE (50%) 50ML SYRG IV PRN (06:15)
[2018-01-04] MEDS ORDERED: ACETAMINOPHEN 325 MG TAB PO PRN (06:15)
[2018-01-04] MEDS ORDERED: NITROGLYCERIN 0.4 MG SL TAB SL PRN (06:15)
[2018-01-04] MEDS ORDERED: ONDANSETRON HCL 4 MG/2 ML VIAL IV PRN (06:15)
[2018-01-04] MEDS ORDERED: TEMAZEPAM 15 MG CAP PO PRN (06:15)
[2018-01-04] MEDS ORDERED: MORPHINE SULF INJ 2 MG/ML SYRINGE 1ML IV PRN (06:15)
[2018-01-04] MEDS ORDERED: diphenhdrAMINE HCL 50 MG/1 ML VL IV ONE (06:15)
[2018-01-04] MEDS ORDERED: IOHEXOL 350 MG/ML 100ML IJ ONE (06:20)
[2018-01-04] MEDS: ACCU-CHEK COMFORT CURVE STRIP VI SCH ×4 (07:05→22:12)
[2018-01-04] MEDS: InsuLIN REG 1unit/0.01ml Soln (100units/ml) SC SCH ×4 (07:10→22:12)
[2018-01-04] MEDS ORDERED: CARV6.2551 PO (09:07)
[2018-01-04] MEDS ORDERED: DIVA500T59 PO (09:07)
[2018-01-04] MEDS: FAMOTIDINE 20 MG TAB PO SCH ×2 (10:00→22:12)
[2018-01-04] MEDS: METOPROLOL TARTRATE 25 MG TAB PO SCH ×2 (10:00→22:00)
[2018-01-04] MEDS: CLOPIDOGREL BISULFATE 75 MG TAB PO SCH (10:00)
[2018-01-04] MEDS: ASPirin 81 mg TAB PO SCH (10:00)
[2018-01-04] MEDS: ENOXAPARIN SOD 40 MG/0.4 ML SYRINGE SC SCH (10:00)
[2018-01-04] MEDS: OLANZapine 5 MG TAB PO SCH (10:00)
[2018-01-04] MEDS: HYDROcodone-ACET 5/325MG TAB PO PRN (10:39)
[2018-01-04 13:00] VITALS: BP 102/59
[2018-01-04] MEDS: MORPHINE SULF INJ 2 MG/ML SYRINGE 1ML IV PRN ×2 (13:19→20:04)
[2018-01-04 17:22] VITALS: BP 132/65
[2018-01-04 22:00] VITALS: BP 116/70
[2018-01-04] MEDS: ATORVASTATIN 20 MG TAB PO SCH (22:11)
[2018-01-05] MEDS: HYDROcodone-ACET 5/325MG TAB PO PRN ×4 (00:02→23:28)
[2018-01-05] MEDS: MORPHINE SULF INJ 2 MG/ML SYRINGE 1ML IV PRN ×4 (03:13→20:23)
[2018-01-05 05:00] VITALS: BP 106/56
[2018-01-05 06:20] LABS: Basophils # (auto) 0 uL; Eosinophils # (auto) 0.1 uL; Eosinophils % (auto) 1.9 % (0.0-7.0); Lymphocytes # (auto) 1.5 uL; Neutrophils # (auto) 5.4 uL
[2018-01-05 06:24] LABS: Basophils % (auto) 0.4 % (0.0-2.0); Hematocrit 43.1 % (36.0-46.0); Hemoglobin 14.1 g/dL (12.2-16.2); Lymphocytes % (auto) 19.9 % (10.0-50.0); Mean Corpuscular Hgb Conc. 32.8 g/dL (32.0-36.0); Mean Corpuscular Volume 79.2 fL (80.0-100.0); Monocytes # (auto) 0.4 uL; Neutrophils % (auto) 71.8 % (37.0-80.0); Platelet Count (auto) 204 10^3/uL (140-450); Red Blood Cells 5.44 10^6/uL (4.0-5.20); White Blood Cell 7.5 10^3/uL (4.4-10.8)
[2018-01-05 06:28] LABS: Red Cell Distribution Width 20.2 % (11.8-14.3)
[2018-01-05 06:42] LABS: BUN/Creatinine Ratio 23.8; Bilirubin, Total 0.4 mg/dL (0.2-1.0); Calcium 8.2 mg/dL (8.5-10.1); Potassium 4.1 mmol/L (3.5-5.1); Total Protein 6.2 g/dL (6.4-8.2)
[2018-01-05] MEDS: ACCU-CHEK COMFORT CURVE STRIP VI SCH ×4 (06:49→21:53)
[2018-01-05] MEDS: InsuLIN REG 1unit/0.01ml Soln (100units/ml) SC SCH ×4 (06:50→21:53)
[2018-01-05 09:00] VITALS: BP 99/59
[2018-01-05] MEDS: METOPROLOL TARTRATE 25 MG TAB PO SCH ×2 (10:00→21:53)
[2018-01-05] MEDS: LEVOFLOXACIN 750MG 150 ML IV SCH (10:01)
[2018-01-05] MEDS: ENOXAPARIN SOD 40 MG/0.4 ML SYRINGE SC SCH (10:01)
[2018-01-05] MEDS: FAMOTIDINE 20 MG TAB PO SCH ×2 (10:01→21:53)
[2018-01-05] MEDS: CLOPIDOGREL BISULFATE 75 MG TAB PO SCH (10:02)
[2018-01-05] MEDS: OLANZapine 5 MG TAB PO SCH (10:02)
[2018-01-05] MEDS: ASPirin 81 mg TAB PO SCH (10:02)
[2018-01-05] MEDS: diphenhdrAMINE HCL 50 MG/1 ML VL IV PRN ×2 (10:18→19:50)
[2018-01-05] MEDS: CARISOPRODOL 350 MG TAB PO PRN (17:24)
[2018-01-05 21:36] VITALS: BP 106/64
[2018-01-05] MEDS: ATORVASTATIN 20 MG TAB PO SCH (21:53)
[2018-01-06] MEDS: CARISOPRODOL 350 MG TAB PO PRN (01:18)
[2018-01-06] MEDS: MORPHINE SULF INJ 2 MG/ML SYRINGE 1ML IV PRN ×2 (02:24→08:59)
[2018-01-06 05:01] VITALS: BP 91/53
[2018-01-06] MEDS: InsuLIN REG 1unit/0.01ml Soln (100units/ml) SC SCH ×2 (06:30→11:47)
[2018-01-06] MEDS: HYDROcodone-ACET 5/325MG TAB PO PRN ×2 (06:30→12:24)
[2018-01-06] MEDS: ACCU-CHEK COMFORT CURVE STRIP VI SCH ×2 (06:30→11:48)
[2018-01-06 08:47] VITALS: BP 111/68
[2018-01-06] MEDS: diphenhdrAMINE HCL 50 MG/1 ML VL IV PRN (08:59)
[2018-01-06] MEDS: ENOXAPARIN SOD 40 MG/0.4 ML SYRINGE SC SCH (08:59)
[2018-01-06] MEDS: CLOPIDOGREL BISULFATE 75 MG TAB PO SCH (09:00)
[2018-01-06] MEDS: OLANZapine 5 MG TAB PO SCH (09:00)
[2018-01-06] MEDS: ASPirin 81 mg TAB PO SCH (09:00)
[2018-01-06] MEDS: FAMOTIDINE 20 MG TAB PO SCH (09:00)
[2018-01-06] MEDS: METOPROLOL TARTRATE 25 MG TAB PO SCH (09:01)
[2018-01-06] MEDS: LEVOFLOXACIN 750MG 150 ML IV SCH (09:02)
[2018-01-06 12:52] VITALS: BP 111/68
[2018-01-06 13:00] VITALS: BP 111/63
== END 2018-01-06 13:45 | disposition home or self-care (01) | DRG 637 ==
LOC: ER 00:46 → EDBD 00:46 → TELE 00:47 → TELE-WESTW 07:35
PROVIDERS: ADMIT Nurse Practitioner; ATTEND Family Medicine
DX: E11.65 Type 2 diabetes mellitus with hyperglycemia (principal); J18.9 Pneumonia, unspecified organism; J44.0 Chronic obstructive pulmonary disease with (acute) lower respiratory infection; J98.11 Atelectasis; Z79.82 Long term (current) use of aspirin; E78.00 Pure hypercholesterolemia, unspecified; F17.210 Nicotine dependence, cigarettes, uncomplicated; F20.9 Schizophrenia, unspecified; F32.9 Major depressive disorder, single episode, unspecified; F41.9 Anxiety disorder, unspecified; G89.29 Other chronic pain; I08.0 Rheumatic disorders of both mitral and aortic valves; I11.0 Hypertensive heart disease with heart failure; I25.10 Atherosclerotic heart disease of native coronary artery without angina pectoris; I25.2 Old myocardial infarction; I50.9 Heart failure, unspecified; K21.9 Gastro-esophageal reflux disease without esophagitis; Z82.3 Family history of stroke; Z82.49 Family history of ischemic heart disease and other diseases of the circulatory system; Z83.3 Family history of diabetes mellitus; Z88.1 Allergy status to other antibiotic agents; Z87.442 Personal history of urinary calculi; Z90.49 Acquired absence of other specified parts of digestive tract; Z90.710 Acquired absence of both cervix and uterus; Z95.5 Presence of coronary angioplasty implant and graft; Z79.899 Other long term (current) drug therapy
CPT/HCPCS: 36415; 71045; 71275; 74176; 80053; 82962; 83735; 83880; 84443; 84484; 85025; 85379; 85610; 85730; 87040; 93005; 94761; 96372; 96374; 96375; 96376; J1815; J1885; J1956; J2405

== ENCOUNTER 2018-01-13 20:05 | Inpatient (IN) | payer MEDICARE ==
[~2018-01-13] VITALS: Ht 162.6 cm; Wt 70.4 kg
[~2018-01-13 20:05] MED LIST changes: +CARV6.2551 PO; +DIVA500T59 PO
[2018-01-13] MEDS ORDERED: MORPHINE SULFATE 4 MG/ML SYR/VIAL IV ONE (21:00)
[2018-01-13] MEDS ORDERED: ASPirin 81 mg TAB PO ONE (21:00)
[2018-01-13] MEDS ORDERED: PROMETHAZINE HCL 25 MG/ML 1ML IV ONE (21:00)
[2018-01-13 21:02] LABS: Basophils # (auto) 0.1 uL; Eosinophils # (auto) 0.1 uL; Lymphocytes % (auto) 27.1 % (10.0-50.0); Mean Corpuscular Hgb Conc. 33.1 g/dL (32.0-36.0); Monocytes % (auto) 8.3 % (0.0-12.0)
[2018-01-13 21:04] LABS: Basophils % (auto) 0.7 % (0.0-2.0); Eosinophils % (auto) 1.5 % (0.0-7.0); Hematocrit 45.7 % (36.0-46.0); Hemoglobin 15.1 g/dL (12.2-16.2); Lymphocytes # (auto) 2.5 uL; Mean Corpuscular Hemoglobin 26.4 pg (28.0-32.0); Mean Corpuscular Volume 79.7 fL (80.0-100.0); Monocytes # (auto) 0.8 uL; Neutrophils # (auto) 5.7 uL; Neutrophils % (auto) 62.4 % (37.0-80.0); Platelet Count (auto) 274 10^3/uL (140-450); Red Blood Cells 5.73 10^6/uL (4.0-5.20); White Blood Cell 9.2 10^3/uL (4.4-10.8)
[2018-01-13 21:07] LABS: Red Cell Distribution Width 20.9 % (11.8-14.3)
[2018-01-13 21:18] LABS: Alanine Aminotransferase 31 U/L (13-56); Albumin 3.6 g/dL (3.4-5.0); Anion Gap 12 (5-15); Aspartate Aminotransferase 20 U/L (15-37); BUN/Creatinine Ratio 22.2; Blood Urea Nitrogen 12 mg/dL (7-18); Calcium 8.5 mg/dL (8.5-10.1); Carbon Dioxide 22 mmol/L (21-32); Chloride 110 mmol/L (98-107); GFR African American 148 mL/min; GFR Non-African American 122 mL/min; Glucose 178 mg/dL (74-106); Potassium 3.8 mmol/L (3.5-5.1); Sodium 144 mmol/L (136-145)
[2018-01-13 21:19] LABS: INR 0.9 (0.9-1.15); Partial Thromboplastin Time 26.5 sec (23.78-33.04); Prothrombin Time 9.7 sec (9.27-12.13)
[2018-01-13 21:23] LABS: Alkaline Phosphatase 145 U/L (45-117); Bilirubin, Total 0.2 mg/dL (0.2-1.0); Total Protein 7.1 g/dL (6.4-8.2)
[2018-01-13] MEDS ORDERED: ACETAMINOPHEN 500 MG TAB PO PRN (22:45)
[2018-01-13] MEDS ORDERED: TEMAZEPAM 15 MG CAP PO PRN (22:45)
[2018-01-14] MEDS ORDERED: NITROGLYCERIN 0.4 MG SL TAB SL PRN (00:15)
[2018-01-14] MEDS ORDERED: diphenhdrAMINE HCL 25 MG CAP PO PRN (00:15)
[2018-01-14] MEDS ORDERED: MORPHINE SULF INJ 2 MG/ML SYRINGE 1ML IV PRN (00:15)
[2018-01-14] MEDS ORDERED: ASPI81TA27 PO (01:34)
[2018-01-14] MEDS: MORPHINE SULF INJ 2 MG/ML SYRINGE 1ML IV PRN ×3 (01:47→09:50)
[2018-01-14 01:53] VITALS: BP 124/68
[2018-01-14 05:39] VITALS: BP 119/73
[2018-01-14 06:36] LABS: Basophils # (auto) 0 uL; Eosinophils # (auto) 0.2 uL; Monocytes # (auto) 0.7 uL; Monocytes % (auto) 8.3 % (0.0-12.0); Neutrophils # (auto) 4.3 uL
[2018-01-14 06:40] LABS: Basophils % (auto) 0.4 % (0.0-2.0); Eosinophils % (auto) 2.5 % (0.0-7.0); Hematocrit 42.1 % (36.0-46.0); Lymphocytes # (auto) 3.2 uL; Lymphocytes % (auto) 37.6 % (10.0-50.0); Mean Corpuscular Hemoglobin 26.5 pg (28.0-32.0); Mean Corpuscular Hgb Conc. 33.1 g/dL (32.0-36.0); Neutrophils % (auto) 51.2 % (37.0-80.0); Nucleated Red Blood Cells % 0.2 %; Platelet Count (auto) 242 10^3/uL (140-450); Red Blood Cells 5.27 10^6/uL (4.0-5.20); White Blood Cell 8.4 10^3/uL (4.4-10.8)
[2018-01-14 06:47] LABS: Red Cell Distribution Width 20.9 % (11.8-14.3)
[2018-01-14 06:54] LABS: BUN/Creatinine Ratio 29.2; Calcium 8.5 mg/dL (8.5-10.1); Potassium 3.8 mmol/L (3.5-5.1)
[2018-01-14 08:30] VITALS: BP 113/70
[2018-01-14] MEDS: ASPirin-EC 81 mg tab PO SCH (09:52)
[2018-01-14] MEDS: PANTOPRAZOLE 40 MG TAB PO SCH (09:52)
[2018-01-14] MEDS: CARVEDILOL 3.125 MG TAB PO SCH ×2 (09:53→22:00)
[2018-01-14 12:30] VITALS: BP 102/65
[2018-01-14] MEDS ORDERED: LEVOFLOXACIN 500 MG TAB PO ONE (12:45)
[2018-01-14] MEDS: diphenhdrAMINE HCL 25 MG CAP PO PRN (15:21)
[2018-01-14] MEDS: HYDROcodone-ACET 5/325MG TAB PO PRN ×2 (15:22→20:06)
[2018-01-14 16:28] VITALS: BP 98/63
[2018-01-14 22:00] VITALS: BP 114/69
[2018-01-14] MEDS ORDERED: ATORVASTATIN 20 MG TAB PO SCH (22:00)
[2018-01-14] MEDS ORDERED: GABAPENTIN 300 MG CAP PO SCH (22:00)
[2018-01-15] MEDS: HYDROcodone-ACET 5/325MG TAB PO PRN ×4 (00:18→18:44)
[2018-01-15 05:10] VITALS: BP 113/67
[2018-01-15 09:00] VITALS: BP 112/65
[2018-01-15] MEDS: ASPirin-EC 81 mg tab PO SCH (09:38)
[2018-01-15] MEDS: PANTOPRAZOLE 40 MG TAB PO SCH (09:41)
[2018-01-15] MEDS: diphenhdrAMINE HCL 25 MG CAP PO PRN (09:47)
[2018-01-15] MEDS: CARVEDILOL 3.125 MG TAB PO SCH (09:48)
[2018-01-15] MEDS ORDERED: LEVOFLOXACIN 500 MG TAB PO SCH (10:00)
[2018-01-15] MEDS ORDERED: DEXTROSE (50%) 50ML SYRG IV PRN (10:45)
[2018-01-15] MEDS: InsuLIN REG 1unit/0.01ml Soln (100units/ml) SC SCH ×2 (12:00→18:04)
[2018-01-15] MEDS: ACCU-CHEK COMFORT CURVE STRIP VI SCH ×2 (12:28→18:03)
[2018-01-15 13:00] VITALS: BP_SYST 116; BP_SYST 120; BP_DIAS 68; BP_DIAS 74
[2018-01-15 17:00] VITALS: BP 96/59
[2018-01-15 17:02] VITALS: BP 116/68
== END 2018-01-15 19:00 | disposition home or self-care (01) | DRG 190 ==
LOC: ER 20:05 → TELE 20:06 → TELE-EAST 01-14 01:10
PROVIDERS: ADMIT Nurse Practitioner Family; ATTEND Family Medicine
DX: J44.0 Chronic obstructive pulmonary disease with (acute) lower respiratory infection (principal); J18.9 Pneumonia, unspecified organism; F11.20 Opioid dependence, uncomplicated; R07.89 Other chest pain; Z88.1 Allergy status to other antibiotic agents; E11.40 Type 2 diabetes mellitus with diabetic neuropathy, unspecified; E78.00 Pure hypercholesterolemia, unspecified; E78.5 Hyperlipidemia, unspecified; F17.210 Nicotine dependence, cigarettes, uncomplicated; F20.9 Schizophrenia, unspecified; F32.9 Major depressive disorder, single episode, unspecified; I11.0 Hypertensive heart disease with heart failure; I25.10 Atherosclerotic heart disease of native coronary artery without angina pectoris; I50.9 Heart failure, unspecified; K21.9 Gastro-esophageal reflux disease without esophagitis; Z79.82 Long term (current) use of aspirin; Z82.3 Family history of stroke; Z82.49 Family history of ischemic heart disease and other diseases of the circulatory system; Z83.3 Family history of diabetes mellitus; Z87.442 Personal history of urinary calculi; Z90.710 Acquired absence of both cervix and uterus; Z90.49 Acquired absence of other specified parts of digestive tract
CPT/HCPCS: 36415; 71046; 80048; 80053; 82962; 83735; 83880; 84484; 85025; 85610; 85730; 87081; 93005; 94761; 96374; 96375; 96376; J1815

== ENCOUNTER 2018-01-25 16:58 | Inpatient (IN) | payer MEDICARE ==
[~2018-01-25] VITALS: Ht 162.6 cm; Wt 74.1 kg
[~2018-01-25 16:58] MED LIST changes: +ASPI81TA27 PO
[2018-01-25] MEDS ORDERED: ONDANSETRON HCL 4 MG/2 ML VIAL IV ONE (17:30)
[2018-01-25] MEDS ORDERED: ASPirin 81 mg TAB PO ONE (17:30)
[2018-01-25] MEDS ORDERED: MORPHINE SULFATE 4 MG/ML SYR/VIAL IV ONE (17:30)
[2018-01-25 17:56] LABS: Basophils # (auto) 0 uL; Basophils % (auto) 0.3 % (0.0-2.0); Eosinophils # (auto) 0.1 uL; Eosinophils % (auto) 1.5 % (0.0-7.0); Hematocrit 42.6 % (36.0-46.0); Hemoglobin 13.9 g/dL (12.2-16.2); Lymphocytes # (auto) 3.2 uL; Lymphocytes % (auto) 35.7 % (10.0-50.0); Mean Corpuscular Hemoglobin 26.3 pg (28.0-32.0); Mean Corpuscular Hgb Conc. 32.6 g/dL (32.0-36.0); Mean Corpuscular Volume 80.9 fL (80.0-100.0); Monocytes # (auto) 0.6 uL; Monocytes % (auto) 7.3 % (0.0-12.0); Neutrophils # (auto) 4.9 uL; Neutrophils % (auto) 55.2 % (37.0-80.0); Nucleated Red Blood Cells % 0.1 %; Platelet Count (auto) 223 10^3/uL (140-450); Red Blood Cells 5.27 10^6/uL (4.0-5.20); White Blood Cell 8.8 10^3/uL (4.4-10.8)
[2018-01-25 17:57] LABS: Red Cell Distribution Width 20.3 % (11.8-14.3)
[2018-01-25 18:05] LABS: Alanine Aminotransferase 21 U/L (13-56); Albumin 3.2 g/dL (3.4-5.0); Anion Gap 10 (5-15); Aspartate Aminotransferase 9 U/L (15-37); Blood Urea Nitrogen 14 mg/dL (7-18); Calcium 8.1 mg/dL (8.5-10.1); Carbon Dioxide 24 mmol/L (21-32); Chloride 108 mmol/L (98-107); GFR African American 142 mL/min; GFR Non-African American 117 mL/min; Glucose 157 mg/dL (74-106); Potassium 3.9 mmol/L (3.5-5.1); Sodium 142 mmol/L (136-145)
[2018-01-25 18:10] LABS: Alkaline Phosphatase 112 U/L (45-117); Bilirubin, Total 0.3 mg/dL (0.2-1.0); Total Protein 6.5 g/dL (6.4-8.2)
[2018-01-25] MEDS ORDERED: MORPHINE SULF INJ 2 MG/ML SYRINGE 1ML IV PRN (19:00)
[2018-01-25] MEDS ORDERED: DEXTROSE (50%) 50ML SYRG IV PRN (19:00)
[2018-01-25] MEDS ORDERED: TEMAZEPAM 15 MG CAP PO PRN (19:00)
[2018-01-25] MEDS ORDERED: ACETAMINOPHEN 500 MG TAB PO PRN (19:00)
[2018-01-25] MEDS ORDERED: LORazepam 0.5 MG TAB PO PRN (19:00)
[2018-01-25] MEDS ORDERED: HYDROcodone-ACET 5/325MG TAB PO PRN (19:00)
[2018-01-25] MEDS ORDERED: ALBUTEROL SULF 2.5 MG/0.5ML(0.5%) NEB SOLN NEB PRN (19:00)
[2018-01-25] MEDS ORDERED: LACTULOSE 20Gm/30ML SOLN PO PRN (19:00)
[2018-01-25] MEDS ORDERED: FUROSEMIDE 40 MG/4 ML VIAL IV ONE (19:00)
[2018-01-25] MEDS ORDERED: PROMETHAZINE HCL 25 MG/ML 1ML IV PRN (19:00)
[2018-01-25] MEDS ORDERED: NITROGLYCERIN 0.4 MG SL TAB SL PRN (19:00)
[2018-01-25] MEDS: DOXYCYCLINE 100MG/250ML 250 ML IV SCH (20:00)
[2018-01-25] MEDS: PANTOPRAZOLE 40 MG TAB PO SCH (20:37)
[2018-01-25] MEDS: MORPHINE SULF INJ 2 MG/ML SYRINGE 1ML IV PRN (20:38)
[2018-01-25 20:40] VITALS: BP 110/68
[2018-01-25] MEDS: CARVEDILOL 3.125 MG TAB PO SCH (21:07)
[2018-01-25] MEDS ORDERED: diphenhdrAMINE HCL 50 MG/1 ML VL IV PRN (21:15)
[2018-01-25] MEDS ORDERED: OLANZapine 5 MG TAB PO SCH (22:00)
[2018-01-25] MEDS ORDERED: GABAPENTIN 300 MG CAP PO SCH (22:00)
[2018-01-25] MEDS: ACCU-CHEK COMFORT CURVE STRIP VI SCH (22:00)
[2018-01-25 23:00] VITALS: BP 110/68
[2018-01-25] MEDS: CARISOPRODOL 350 MG TAB PO SCH (23:24)
[2018-01-25 23:34] VITALS: BP 110/68
[2018-01-25] MEDS: InsuLIN REG 1unit/0.01ml Soln (100units/ml) SC SCH (23:40)
[2018-01-26] MEDS: MORPHINE SULF INJ 2 MG/ML SYRINGE 1ML IV PRN ×2 (00:38→04:57)
[2018-01-26] MEDS: ALBUTEROL SULF 2.5 MG/0.5ML(0.5%) NEB SOLN NEB SCH ×3 (01:19→11:25)
[2018-01-26] MEDS: IPRATROPIUM BROM 0.5 MG/2.5ML INH SOL NEB SCH ×3 (01:19→11:25)
[2018-01-26 05:00] VITALS: BP 103/65
[2018-01-26 06:12] LABS: Basophils # (auto) 0 uL; Basophils % (auto) 0.3 % (0.0-2.0); Eosinophils # (auto) 0.2 uL; Eosinophils % (auto) 3.3 % (0.0-7.0); Hematocrit 39.6 % (36.0-46.0); Hemoglobin 13.2 g/dL (12.2-16.2); Lymphocytes # (auto) 3.3 uL; Lymphocytes % (auto) 45.1 % (10.0-50.0); Mean Corpuscular Hemoglobin 27.1 pg (28.0-32.0); Mean Corpuscular Hgb Conc. 33.4 g/dL (32.0-36.0); Mean Corpuscular Volume 81.2 fL (80.0-100.0); Monocytes # (auto) 0.6 uL; Monocytes % (auto) 7.8 % (0.0-12.0); Neutrophils # (auto) 3.2 uL; Neutrophils % (auto) 43.5 % (37.0-80.0); Nucleated Red Blood Cells % 0.1 %; Platelet Count (auto) 191 10^3/uL (140-450); Red Blood Cells 4.87 10^6/uL (4.0-5.20); White Blood Cell 7.3 10^3/uL (4.4-10.8)
[2018-01-26] MEDS: InsuLIN REG 1unit/0.01ml Soln (100units/ml) SC SCH ×2 (06:33→12:31)
[2018-01-26] MEDS: ACCU-CHEK COMFORT CURVE STRIP VI SCH ×2 (06:33→12:32)
[2018-01-26] MEDS: CARISOPRODOL 350 MG TAB PO SCH ×2 (06:33→14:00)
[2018-01-26 06:43] LABS: BUN/Creatinine Ratio 20.7; Bilirubin, Total 0.4 mg/dL (0.2-1.0); Calcium 8.1 mg/dL (8.5-10.1); Potassium 3.8 mmol/L (3.5-5.1); Total Protein 5.8 g/dL (6.4-8.2)
[2018-01-26 08:06] VITALS: BP 91/53
[2018-01-26 08:40] VITALS: BP 95/53
[2018-01-26] MEDS: PANTOPRAZOLE 40 MG TAB PO SCH (09:45)
[2018-01-26] MEDS ORDERED: ASPirin-EC 81 mg tab PO SCH (10:00)
[2018-01-26] MEDS: DOXYCYCLINE 100MG/250ML 250 ML IV SCH (10:00)
[2018-01-26] MEDS ORDERED: ENOXAPARIN SOD 40 MG/0.4 ML SYRINGE SC SCH (10:00)
[2018-01-26] MEDS: CARVEDILOL 3.125 MG TAB PO SCH (10:00)
[2018-01-26] MEDS ORDERED: ENALAPRIL MALEATE 2.5 MG TAB PO SCH (10:00)
[2018-01-26 10:47] LABS: Alcohol, Urine < 3.0 mg/dL (0-5); Amphetamine Screen, Urine NEGATIVE (NEGATIVE); Barbiturate Scree,Urine NEGATIVE (NEGATIVE); Benzodiazephine Screen, Urine NEGATIVE (NEGATIVE); Cannabinoid Screen, Urine NEGATIVE (NEGATIVE); Cocaine Screen, Urine NEGATIVE (NEGATIVE); Opiate Scree,Urine POSITIVE (NEGATIVE); Phencyclidine Screen, Urine NEGATIVE (NEGATIVE)
[2018-01-26 13:04] VITALS: BP 92/56
[2018-01-26 15:28] VITALS: BP 92/56
== END 2018-01-26 16:15 | disposition home or self-care (01) | DRG 190 ==
LOC: ER 17:04 → TELE 17:05 → TELE-WESTW 19:40
PROVIDERS: ADMIT Internal Medicine; ATTEND Internal Medicine
DX: J44.0 Chronic obstructive pulmonary disease with (acute) lower respiratory infection (principal); I50.33 Acute on chronic diastolic (congestive) heart failure; F11.20 Opioid dependence, uncomplicated; J44.1 Chronic obstructive pulmonary disease with (acute) exacerbation; I11.0 Hypertensive heart disease with heart failure; E11.40 Type 2 diabetes mellitus with diabetic neuropathy, unspecified; J20.9 Acute bronchitis, unspecified; K21.9 Gastro-esophageal reflux disease without esophagitis; E11.51 Type 2 diabetes mellitus with diabetic peripheral angiopathy without gangrene; I25.10 Atherosclerotic heart disease of native coronary artery without angina pectoris; F32.9 Major depressive disorder, single episode, unspecified; F41.9 Anxiety disorder, unspecified; F20.9 Schizophrenia, unspecified; E78.00 Pure hypercholesterolemia, unspecified; E78.5 Hyperlipidemia, unspecified; F17.210 Nicotine dependence, cigarettes, uncomplicated; Z82.49 Family history of ischemic heart disease and other diseases of the circulatory system; Z82.3 Family history of stroke; Z83.3 Family history of diabetes mellitus; Z86.73 Personal history of transient ischemic attack (TIA), and cerebral infarction without residual deficits; Z87.442 Personal history of urinary calculi; Z87.01 Personal history of pneumonia (recurrent); Z90.710 Acquired absence of both cervix and uterus; Z79.899 Other long term (current) drug therapy; Z79.82 Long term (current) use of aspirin; Z90.49 Acquired absence of other specified parts of digestive tract; Z80.9 Family history of malignant neoplasm, unspecified
CPT/HCPCS: 36415; 71045; 80053; 80061; 80307; 82550; 82962; 83036; 83735; 83880; 84443; 84484; 85025; 85379; 85652; 86141; 87081; 93005; 94640; 94761; 96374; 96375; J1815; J2405

== ENCOUNTER 2018-02-06 18:34 | Emergency (ER) | payer MEDICARE ==
[~2018-02-06] VITALS: Ht 162.6 cm; Wt 71.2 kg
[2018-02-06 20:24] VITALS: BP 122/56
[2018-02-06] MEDS ORDERED: KETOROLAC TROMETH 60MG/2ML VIAL IM ONE (21:45)
[2018-02-06] MEDS ORDERED: DEXAMETHASONE SOD PHOS 10MG/1ML VIAL INJ IM ONE (21:45)
== END 2018-02-06 22:49 | disposition home or self-care (01) ==
LOC: ER 18:34
DX: S46.811A Strain of other muscles, fascia and tendons at shoulder and upper arm level, right arm, initial encounter (principal); J44.9 Chronic obstructive pulmonary disease, unspecified; I11.0 Hypertensive heart disease with heart failure; I50.9 Heart failure, unspecified; I25.119 Atherosclerotic heart disease of native coronary artery with unspecified angina pectoris; E11.9 Type 2 diabetes mellitus without complications; E78.5 Hyperlipidemia, unspecified; I25.2 Old myocardial infarction; K21.9 Gastro-esophageal reflux disease without esophagitis; F17.210 Nicotine dependence, cigarettes, uncomplicated; Z88.1 Allergy status to other antibiotic agents; Z79.82 Long term (current) use of aspirin; Z79.899 Other long term (current) drug therapy; Z90.49 Acquired absence of other specified parts of digestive tract; Z90.710 Acquired absence of both cervix and uterus; X58.XXXA Exposure to other specified factors, initial encounter; Y93.89 Activity, other specified; Y99.8 Other external cause status; Y92.89 Other specified places as the place of occurrence of the external cause
CPT/HCPCS: 73200; 96372; 99284; J1100; J1885

== ENCOUNTER 2018-03-29 16:22 | Inpatient (IN) | payer MEDICARE, MEDICAID ==
[~2018-03-29] VITALS: Ht 162.6 cm; Wt 13.9 kg
[2018-03-29] MEDS ORDERED: MORPHINE SULFATE 4 MG/ML SYR/VIAL IV ONE (18:15)
[2018-03-29] MEDS ORDERED: ASPirin 81 mg TAB PO ONE (18:15)
[2018-03-29] MEDS ORDERED: ONDANSETRON HCL 4 MG/2 ML VIAL IV ONE (18:15)
[2018-03-29 18:57] LABS: Basophils # (auto) 0 uL; Basophils % (auto) 0.2 % (0.0-2.0); Eosinophils # (auto) 0.1 uL; Eosinophils % (auto) 1.2 % (0.0-7.0); Hematocrit 45.9 % (36.0-46.0); Hemoglobin 15.1 g/dL (12.2-16.2); Lymphocytes # (auto) 2.2 uL; Lymphocytes % (auto) 25.2 % (10.0-50.0); Mean Corpuscular Hgb Conc. 32.9 g/dL (32.0-36.0); Mean Corpuscular Volume 85.1 fL (80.0-100.0); Monocytes # (auto) 0.7 uL; Monocytes % (auto) 8.2 % (0.0-12.0); Neutrophils # (auto) 5.6 uL; Neutrophils % (auto) 65.2 % (37.0-80.0); Nucleated Red Blood Cells % 0.1 %; Platelet Count (auto) 270 10^3/uL (140-450); Red Blood Cells 5.39 10^6/uL (4.0-5.20); Red Cell Distribution Width 16.6 % (11.8-14.3); White Blood Cell 8.5 10^3/uL (4.4-10.8)
[2018-03-29 19:12] LABS: Albumin 3.5 g/dL (3.4-5.0); Anion Gap 10 (5-15); Blood Urea Nitrogen 8 mg/dL (7-18); Calcium 9.1 mg/dL (8.5-10.1); Carbon Dioxide 25 mmol/L (21-32); Chloride 105 mmol/L (98-107); Glucose 180 mg/dL (74-106); Potassium 3.7 mmol/L (3.5-5.1); Sodium 140 mmol/L (136-145)
[2018-03-29 19:18] LABS: Alanine Aminotransferase 20 U/L (13-56); Alkaline Phosphatase 130 U/L (45-117); Aspartate Aminotransferase 14 U/L (15-37); BUN/Creatinine Ratio 14.8; Bilirubin, Total 0.5 mg/dL (0.2-1.0); GFR African American 148 mL/min; GFR Non-African American 122 mL/min; Total Protein 7.5 g/dL (6.4-8.2)
[2018-03-29] MEDS: SODIUM CHLORIDE 0.9% 1,000 ML IV SCH (19:49)
[2018-03-29] MEDS ORDERED: DEXTROSE (50%) 50ML SYRG IV PRN (20:00)
[2018-03-29] MEDS ORDERED: HYDROcodone-ACET 10/325MG TAB PO PRN (20:00)
[2018-03-29] MEDS ORDERED: LORazepam 0.5 MG TAB PO PRN (20:00)
[2018-03-29] MEDS ORDERED: TEMAZEPAM 15 MG CAP PO PRN (20:00)
[2018-03-29] MEDS ORDERED: MORPHINE SULFATE 4 MG/ML SYR/VIAL IV PRN ×2 (20:00)
[2018-03-29] MEDS ORDERED: NITROGLYCERIN 0.4 MG SL TAB SL PRN (20:00)
[2018-03-29 20:52] LABS: INR 0.9 (0.9-1.15); Partial Thromboplastin Time 28.6 sec (23.78-33.04); Prothrombin Time 9.7 sec (9.27-12.13)
[2018-03-29 20:58] LABS: Urine Bacteria NONE SEEN /hpf (None Seen); Urine Blood Negative /uL (Negative); Urine Specific Gravity 1.031 (1.001-1.035); Urine WBC 36 /hpf (0 - 5)
[2018-03-29 21:20] LABS: Alcohol, Urine < 3.0 mg/dL (0-5); Amphetamine Screen, Urine NEGATIVE (NEGATIVE); Barbiturate Scree,Urine NEGATIVE (NEGATIVE); Benzodiazephine Screen, Urine NEGATIVE (NEGATIVE); Cannabinoid Screen, Urine NEGATIVE (NEGATIVE); Cocaine Screen, Urine NEGATIVE (NEGATIVE); Opiate Scree,Urine POSITIVE (NEGATIVE); Phencyclidine Screen, Urine NEGATIVE (NEGATIVE)
[2018-03-29 21:30] VITALS: BP 99/49
[2018-03-29 22:00] VITALS: BP 99/49
[2018-03-29] MEDS: OLANZapine 5 MG TAB PO SCH (22:32)
[2018-03-29] MEDS: ATORVASTATIN 20 MG TAB PO SCH (22:33)
[2018-03-29] MEDS: CARISOPRODOL 350 MG TAB PO SCH (22:33)
[2018-03-29] MEDS: GABAPENTIN 300 MG CAP PO SCH (22:33)
[2018-03-29] MEDS: PANTOPRAZOLE 40 MG TAB PO SCH (22:33)
[2018-03-29] MEDS: ACCU-CHEK COMFORT CURVE STRIP VI SCH (22:34)
[2018-03-29] MEDS: CARVEDILOL 3.125 MG TAB PO SCH (22:37)
[2018-03-29] MEDS: InsuLIN REG 1unit/0.01ml Soln (100units/ml) SC SCH (22:50)
[2018-03-30] MEDS: ACETAMINOPHEN 500 MG TAB PO PRN (00:14)
[2018-03-30 01:20] LABS: Hematocrit 40.2 % (36.0-46.0); Hemoglobin 13.1 g/dL (12.2-16.2)
[2018-03-30 04:50] VITALS: BP 103/65
[2018-03-30] MEDS: CARISOPRODOL 350 MG TAB PO SCH ×3 (05:49→21:32)
[2018-03-30 05:55] LABS: Hematocrit 40.3 % (36.0-46.0); Hemoglobin 13.4 g/dL (12.2-16.2)
[2018-03-30] MEDS: ACCU-CHEK COMFORT CURVE STRIP VI SCH ×4 (06:41→21:32)
[2018-03-30] MEDS: InsuLIN REG 1unit/0.01ml Soln (100units/ml) SC SCH ×4 (06:42→21:32)
[2018-03-30 06:43] LABS: Cholesterol 128 mg/dL (< 200); HDL Cholesterol 40 mg/dL (40-59); LDL Cholesterol 77 mg/dL (< 100); Triglycerides 215 mg/dL (< 150)
[2018-03-30 09:00] VITALS: BP 95/61
[2018-03-30] MEDS: SODIUM CHLORIDE 0.9% 1,000 ML IV SCH ×2 (09:20→22:36)
[2018-03-30] MEDS: PANTOPRAZOLE 40 MG TAB PO SCH ×2 (09:21→21:31)
[2018-03-30] MEDS: CARVEDILOL 3.125 MG TAB PO SCH ×2 (10:00→22:00)
[2018-03-30 11:40] LABS: Hematocrit 42.3 % (36.0-46.0); Hemoglobin 13.7 g/dL (12.2-16.2)
[2018-03-30 13:00] VITALS: BP 92/52
[2018-03-30] MEDS ORDERED: diphenhdrAMINE HCL 50 MG/1 ML VL IM PRN (16:15)
[2018-03-30 17:00] VITALS: BP 104/54
[2018-03-30] MEDS: ATORVASTATIN 20 MG TAB PO SCH (21:31)
[2018-03-30] MEDS: OLANZapine 5 MG TAB PO SCH (21:31)
[2018-03-30] MEDS: GABAPENTIN 300 MG CAP PO SCH (21:31)
[2018-03-30 22:00] VITALS: BP 92/56
[2018-03-31] MEDS: ACETAMINOPHEN 500 MG TAB PO PRN (03:15)
[2018-03-31 05:27] VITALS: BP 95/56
[2018-03-31] MEDS: CARISOPRODOL 350 MG TAB PO SCH ×3 (06:11→21:38)
[2018-03-31] MEDS: ACCU-CHEK COMFORT CURVE STRIP VI SCH ×4 (06:28→22:12)
[2018-03-31] MEDS: InsuLIN REG 1unit/0.01ml Soln (100units/ml) SC SCH ×4 (06:29→22:00)
[2018-03-31 09:00] VITALS: BP 93/49
[2018-03-31] MEDS: PANTOPRAZOLE 40 MG TAB PO SCH ×2 (09:20→21:39)
[2018-03-31] MEDS: CARVEDILOL 3.125 MG TAB PO SCH ×2 (10:00→22:00)
[2018-03-31] MEDS: SODIUM CHLORIDE 0.9% 1,000 ML IV SCH (11:06)
[2018-03-31] MEDS ORDERED: KETOROLAC TROMETH 30 MG/ML 1ML VIAL IV ONE (11:45)
[2018-03-31 13:00] VITALS: BP 99/50
[2018-03-31 17:00] VITALS: BP 105/56
[2018-03-31] MEDS: GABAPENTIN 300 MG CAP PO SCH (21:38)
[2018-03-31] MEDS: ATORVASTATIN 20 MG TAB PO SCH (21:38)
[2018-03-31] MEDS: OLANZapine 5 MG TAB PO SCH (21:38)
[2018-03-31 22:00] VITALS: BP 100/58
[2018-03-31] MEDS: HYDROcodone-ACET 10/325MG TAB PO PRN (23:21)
[2018-04-01] MEDS: SODIUM CHLORIDE 0.9% 1,000 ML IV SCH ×2 (01:09→16:04)
[2018-04-01 05:14] VITALS: BP 105/60
[2018-04-01] MEDS: CARISOPRODOL 350 MG TAB PO SCH ×3 (05:34→21:36)
[2018-04-01] MEDS: ACCU-CHEK COMFORT CURVE STRIP VI SCH ×4 (06:16→21:36)
[2018-04-01] MEDS: InsuLIN REG 1unit/0.01ml Soln (100units/ml) SC SCH ×5 (06:17→21:53)
[2018-04-01] MEDS: PANTOPRAZOLE 40 MG TAB PO SCH ×2 (08:18→21:36)
[2018-04-01] MEDS: HYDROcodone-ACET 10/325MG TAB PO PRN ×2 (08:20→17:12)
[2018-04-01] MEDS: CARVEDILOL 3.125 MG TAB PO SCH ×2 (08:23→21:35)
[2018-04-01 09:00] VITALS: BP 122/69
[2018-04-01] MEDS: MORPHINE SULFATE 4 MG/ML SYR/VIAL IV PRN ×2 (11:25→20:17)
[2018-04-01 12:48] VITALS: BP 93/61
[2018-04-01] MEDS ORDERED: IOHEXOL 350 MG/ML 100ML IJ ONE ×2 (13:03→13:15)
[2018-04-01] MEDS ORDERED: LIDOCAINE 2%HCL (LOCAL ANESTH.) INJ 20ML MDV ONE (13:03)
[2018-04-01] MEDS ORDERED: fentaNYL CITRATE 100 MCG/2 ML VL ONE (13:04)
[2018-04-01] MEDS ORDERED: MIDAZOLAM HCL 1MG/1ML-2 ML VIAL ONE (13:04)
[2018-04-01] MEDS ORDERED: ANGIOMAX 250 MG VIAL IV ONE (13:04)
[2018-04-01] MEDS ORDERED: SODIUM CHL 0.9% 0 ML ONE (13:06)
[2018-04-01 16:59] VITALS: BP 127/72
[2018-04-01] MEDS: ONDANSETRON HCL 4 MG/2 ML VIAL IV PRN (20:17)
[2018-04-01] MEDS: ATORVASTATIN 20 MG TAB PO SCH (21:35)
[2018-04-01] MEDS: GABAPENTIN 300 MG CAP PO SCH (21:36)
[2018-04-01] MEDS: OLANZapine 5 MG TAB PO SCH (21:36)
[2018-04-01 22:01] VITALS: BP 98/52
[2018-04-02 05:00] VITALS: BP 108/54
[2018-04-02] MEDS: SODIUM CHLORIDE 0.9% 1,000 ML IV SCH ×2 (05:41→17:23)
[2018-04-02] MEDS: CARISOPRODOL 350 MG TAB PO SCH ×3 (05:41→21:38)
[2018-04-02] MEDS: InsuLIN REG 1unit/0.01ml Soln (100units/ml) SC SCH ×4 (05:42→22:00)
[2018-04-02] MEDS: ACCU-CHEK COMFORT CURVE STRIP VI SCH ×4 (05:42→22:00)
[2018-04-02] MEDS: MORPHINE SULFATE 4 MG/ML SYR/VIAL IV PRN ×3 (08:57→23:37)
[2018-04-02] MEDS: ONDANSETRON HCL 4 MG/2 ML VIAL IV PRN (08:57)
[2018-04-02 09:00] VITALS: BP 88/44
[2018-04-02 09:09] VITALS: BP 118/62
[2018-04-02] MEDS: CARVEDILOL 3.125 MG TAB PO SCH ×2 (10:00→21:38)
[2018-04-02] MEDS: PANTOPRAZOLE 40 MG TAB PO SCH ×2 (10:00→21:38)
[2018-04-02] MEDS ORDERED: MIDAZOLAM HCL 5 MG/ML-1ML VIAL ONE (11:23)
[2018-04-02] MEDS ORDERED: LIDOCAINE VISCOUS 2% 15ML UD ONE (11:23)
[2018-04-02] MEDS ORDERED: NALOXONE HCL 0.4 MG/ML VIAL ONE (11:23)
[2018-04-02] MEDS ORDERED: SODIUM CHLORIDE LOCK 10 ML ONE (11:23)
[2018-04-02] MEDS ORDERED: fentaNYL CITRATE 100 MCG/2 ML VL ONE (11:23)
[2018-04-02] MEDS ORDERED: FLUMAZENIL 0.1 MG/ML INJ 10ML MDV IV ONE (11:23)
[2018-04-02] MEDS ORDERED: diphenhdrAMINE HCL 50 MG/1 ML VL ONE (11:24)
[2018-04-02] MEDS ORDERED: HYDROmorphone HCL 2 MG/ML VL ONE (11:44)
[2018-04-02 17:35] VITALS: BP 115/62
[2018-04-02] MEDS: HYDROcodone-ACET 10/325MG TAB PO PRN (20:27)
[2018-04-02] MEDS: ATORVASTATIN 20 MG TAB PO SCH (21:38)
[2018-04-02] MEDS: OLANZapine 5 MG TAB PO SCH (21:38)
[2018-04-02] MEDS: GABAPENTIN 300 MG CAP PO SCH (21:38)
[2018-04-02 23:08] VITALS: BP 127/70
[2018-04-03] VITALS (8 sets, daily range): BP systolic 86–120; BP diastolic 46–81
[2018-04-03] MEDS: diphenhdrAMINE HCL 25 MG CAP PO PRN ×3 (00:30→19:41)
[2018-04-03] MEDS: HYDROcodone-ACET 10/325MG TAB PO PRN ×2 (04:53→16:31)
[2018-04-03] MEDS: CARISOPRODOL 350 MG TAB PO SCH ×3 (05:35→21:57)
[2018-04-03] MEDS: SODIUM CHLORIDE 0.9% 1,000 ML IV SCH ×2 (06:29→20:16)
[2018-04-03] MEDS: ACCU-CHEK COMFORT CURVE STRIP VI SCH ×4 (06:35→21:58)
[2018-04-03] MEDS: InsuLIN REG 1unit/0.01ml Soln (100units/ml) SC SCH ×4 (06:35→21:59)
[2018-04-03] MEDS: CARVEDILOL 3.125 MG TAB PO SCH ×2 (09:44→21:57)
[2018-04-03] MEDS: PANTOPRAZOLE 40 MG TAB PO SCH ×2 (09:48→21:57)
[2018-04-03] MEDS: MORPHINE SULFATE 4 MG/ML SYR/VIAL IV PRN ×2 (11:55→19:42)
[2018-04-03] MEDS: GABAPENTIN 300 MG CAP PO SCH (21:57)
[2018-04-03] MEDS: ATORVASTATIN 20 MG TAB PO SCH (21:57)
[2018-04-03] MEDS: OLANZapine 5 MG TAB PO SCH (21:58)
[2018-04-04 01:59] VITALS: BP 126/73
[2018-04-04] MEDS: diphenhdrAMINE HCL 25 MG CAP PO PRN ×2 (02:07→12:26)
[2018-04-04] MEDS: MORPHINE SULFATE 4 MG/ML SYR/VIAL IV PRN ×2 (02:07→12:26)
[2018-04-04 05:00] VITALS: BP 108/66
[2018-04-04 06:00] LABS: Basophils # (auto) 0 uL; Basophils % (auto) 0.2 % (0.0-2.0); Eosinophils # (auto) 0.1 uL; Hematocrit 41.2 % (36.0-46.0); Hemoglobin 13.5 g/dL (12.2-16.2); Lymphocytes % (auto) 30.2 % (10.0-50.0); Mean Corpuscular Hemoglobin 28.2 pg (28.0-32.0); Mean Corpuscular Hgb Conc. 32.8 g/dL (32.0-36.0); Mean Corpuscular Volume 86.1 fL (80.0-100.0); Monocytes # (auto) 0.5 uL; Monocytes % (auto) 6.8 % (0.0-12.0); Neutrophils # (auto) 4.1 uL; Neutrophils % (auto) 60.8 % (37.0-80.0); Nucleated Red Blood Cells % 0.1 %; Platelet Count (auto) 247 10^3/uL (140-450); Red Blood Cells 4.79 10^6/uL (4.0-5.20); Red Cell Distribution Width 15.9 % (11.8-14.3); White Blood Cell 6.7 10^3/uL (4.4-10.8)
[2018-04-04] MEDS: CARISOPRODOL 350 MG TAB PO SCH ×2 (06:00→14:00)
[2018-04-04 06:05] LABS: INR 0.93 (0.9-1.15); Partial Thromboplastin Time 29.4 sec (23.78-33.04)
[2018-04-04 06:31] LABS: Albumin 2.7 g/dL (3.4-5.0); BUN/Creatinine Ratio 24.4; Calcium 8.6 mg/dL (8.5-10.1); Potassium 3.8 mmol/L (3.5-5.1)
[2018-04-04 06:34] LABS: Bilirubin, Total 0.3 mg/dL (0.2-1.0); Total Protein 6.1 g/dL (6.4-8.2)
[2018-04-04] MEDS: InsuLIN REG 1unit/0.01ml Soln (100units/ml) SC SCH ×2 (06:46→11:48)
[2018-04-04] MEDS: ACCU-CHEK COMFORT CURVE STRIP VI SCH ×2 (06:46→11:48)
[2018-04-04 07:50] VITALS: BP 103/49
[2018-04-04] MEDS: CARVEDILOL 3.125 MG TAB PO SCH (08:00)
[2018-04-04] MEDS ORDERED: IOHEXOL 300 MG/ML 100ML BOTTLE IJ ONE (08:56)
[2018-04-04 09:00] VITALS: BP 102/53
[2018-04-04] MEDS ORDERED: MIDAZOLAM HCL 1MG/1ML-2 ML VIAL ONE (09:32)
[2018-04-04] MEDS ORDERED: fentaNYL CITRATE 100 MCG/2 ML VL ONE (09:32)
[2018-04-04] MEDS ORDERED: PROPOFOL 10 MG/ML 20 ML IV ONE (09:35)
[2018-04-04] MEDS: PANTOPRAZOLE 40 MG TAB PO SCH (10:00)
[2018-04-04] MEDS ORDERED: ONDANSETRON HCL 4 MG/2 ML VIAL IV ONE (10:15)
[2018-04-04] MEDS ORDERED: ePHEDrine SULFATE 50 MG/ML AMP IV PRN (10:15)
[2018-04-04] MEDS ORDERED: hydrALAZINE HCL 20 MG/ML VL IV PRN (10:15)
[2018-04-04] MEDS ORDERED: fentaNYL CITRATE 100 MCG/2 ML VL IV ONE (11:00)
[2018-04-04] MEDS: SODIUM CHLORIDE 0.9% 1,000 ML IV SCH (11:46)
[2018-04-04] MEDS: ONDANSETRON HCL 4 MG/2 ML VIAL IV PRN (11:47)
[2018-04-04 13:00] VITALS: BP 103/65
[2018-04-04 15:08] VITALS: BP 103/49
== END 2018-04-04 15:35 | disposition home or self-care (01) | DRG 287 ==
LOC: ER 16:34 → TELE 16:35 → TELE-WESTW 21:25
PROVIDERS: ADMIT Internal Medicine; ATTEND Internal Medicine
PROC: 4A023N7 Measurement of Cardiac Sampling and Pressure, Left Heart, Percutaneous Approach (ICD-10-PCS; principal; 2018-04-01)
PROC: B2111ZZ Fluoroscopy of Multiple Coronary Arteries using Low Osmolar Contrast (ICD-10-PCS; 2018-04-01)
PROC: B2151ZZ Fluoroscopy of Left Heart using Low Osmolar Contrast (ICD-10-PCS; 2018-04-01)
PROC: 0TP98DZ Removal of Intraluminal Device from Ureter, Via Natural or Artificial Opening Endoscopic (ICD-10-PCS; 2018-04-04)
DX: R07.9 Chest pain, unspecified (principal); K92.0 Hematemesis; K92.2 Gastrointestinal hemorrhage, unspecified; R31.9 Hematuria, unspecified; E78.5 Hyperlipidemia, unspecified; E11.51 Type 2 diabetes mellitus with diabetic peripheral angiopathy without gangrene; J44.9 Chronic obstructive pulmonary disease, unspecified; K21.9 Gastro-esophageal reflux disease without esophagitis; F17.210 Nicotine dependence, cigarettes, uncomplicated; F20.9 Schizophrenia, unspecified; G89.4 Chronic pain syndrome; I11.0 Hypertensive heart disease with heart failure; I25.10 Atherosclerotic heart disease of native coronary artery without angina pectoris; I50.9 Heart failure, unspecified; N20.0 Calculus of kidney; Z82.3 Family history of stroke; Z82.49 Family history of ischemic heart disease and other diseases of the circulatory system; Z87.442 Personal history of urinary calculi; I25.2 Old myocardial infarction; Z90.710 Acquired absence of both cervix and uterus; Z83.3 Family history of diabetes mellitus; Z86.73 Personal history of transient ischemic attack (TIA), and cerebral infarction without residual deficits
CPT/HCPCS: 36415; 71046; 74018; 76000; 76775; 80053; 80061; 80307; 81001; 82550; 82962; 83036; 83735; 83880; 84484; 85014; 85018; 85025; 85045; 85610; 85652; 85730; 86141; 86850; 86900; 86901; 93005; 93458; 94761; 96374; 96375; 96376; 99152; A6257; C1769; G0378; J1815; J1885; J2250; J2405; J2704

== ENCOUNTER 2018-04-09 20:02 | Emergency (ER) | payer MEDICAID, MEDICARE ==
[~2018-04-09] VITALS: Ht 162.6 cm; Wt 72.6 kg
[2018-04-09 21:18] LABS: Basophils # (auto) 0 uL; Basophils % (auto) 0.4 % (0.0-2.0); Eosinophils # (auto) 0.1 uL; Eosinophils % (auto) 1.6 % (0.0-7.0); Hematocrit 42.5 % (36.0-46.0); Hemoglobin 14.3 g/dL (12.2-16.2); Lymphocytes # (auto) 2.4 uL; Lymphocytes % (auto) 37.6 % (10.0-50.0); Mean Corpuscular Hemoglobin 29.1 pg (28.0-32.0); Mean Corpuscular Hgb Conc. 33.6 g/dL (32.0-36.0); Mean Corpuscular Volume 86.6 fL (80.0-100.0); Monocytes # (auto) 0.5 uL; Neutrophils # (auto) 3.5 uL; Neutrophils % (auto) 53.4 % (37.0-80.0); Nucleated Red Blood Cells % 0.1 %; Platelet Count (auto) 271 10^3/uL (140-450); Red Blood Cells 4.91 10^6/uL (4.0-5.20); Red Cell Distribution Width 16.2 % (11.8-14.3); White Blood Cell 6.5 10^3/uL (4.4-10.8)
[2018-04-09 21:30] LABS: Alanine Aminotransferase 27 U/L (13-56); Albumin 3.4 g/dL (3.4-5.0); Anion Gap 8 (5-15); Aspartate Aminotransferase 14 U/L (15-37); Blood Urea Nitrogen 6 mg/dL (7-18); Carbon Dioxide 26 mmol/L (21-32); Chloride 104 mmol/L (98-107); GFR African American 131 mL/min; GFR Non-African American 108 mL/min; Glucose 247 mg/dL (74-106); Potassium 3.9 mmol/L (3.5-5.1); Sodium 138 mmol/L (136-145)
[2018-04-09 21:34] LABS: Alkaline Phosphatase 132 U/L (45-117); Bilirubin, Total 0.2 mg/dL (0.2-1.0); Total Protein 6.7 g/dL (6.4-8.2)
[2018-04-09 23:41] LABS: Urine Bacteria NONE SEEN /hpf (None Seen); Urine Blood Negative /uL (Negative); Urine Specific Gravity 1.018 (1.001-1.035); Urine WBC 4 /hpf (0 - 5)
[2018-04-10] MEDS ORDERED: ONDANSETRON HCL 4 MG/2 ML VIAL IV ONE ×2 (01:15→02:30)
[2018-04-10] MEDS ORDERED: MORPHINE SULFATE 4 MG/ML SYR/VIAL IV ONE ×2 (01:15→02:30)
[2018-04-10 04:06] LABS: INR 0.98 (0.9-1.15); Partial Thromboplastin Time 27.4 sec (23.78-33.04); Prothrombin Time 10.5 sec (9.27-12.13)
[2018-04-10 04:42] VITALS: BP 117/68
== END 2018-04-10 06:02 | disposition home or self-care (01) ==
LOC: ER 20:02
DX: R07.89 Other chest pain (principal); Z98.890 Other specified postprocedural states; J45.909 Unspecified asthma, uncomplicated; I25.10 Atherosclerotic heart disease of native coronary artery without angina pectoris; I11.0 Hypertensive heart disease with heart failure; I50.9 Heart failure, unspecified; J44.9 Chronic obstructive pulmonary disease, unspecified; E11.9 Type 2 diabetes mellitus without complications; K21.9 Gastro-esophageal reflux disease without esophagitis; E78.00 Pure hypercholesterolemia, unspecified; I25.2 Old myocardial infarction; F17.210 Nicotine dependence, cigarettes, uncomplicated; Z90.49 Acquired absence of other specified parts of digestive tract; Z90.710 Acquired absence of both cervix and uterus; Z88.1 Allergy status to other antibiotic agents; Z79.82 Long term (current) use of aspirin; Z79.899 Other long term (current) drug therapy
CPT/HCPCS: 36415; 71045; 80053; 81001; 84484; 85025; 85379; 85610; 85730; 93005; 96374; 96375; 96376; 99285; J2270; J2405

== ENCOUNTER 2018-04-24 18:07 | Inpatient (IN) | payer MEDICARE ==
[~2018-04-24] VITALS: Ht 162.6 cm; Wt 68.7 kg
[2018-04-24 19:25] LABS: Basophils # (auto) 0 uL; Basophils % (auto) 0.5 % (0.0-2.0); Eosinophils # (auto) 0.1 uL; Hematocrit 44.1 % (36.0-46.0); Hemoglobin 14.5 g/dL (12.2-16.2); Lymphocytes # (auto) 2.7 uL; Lymphocytes % (auto) 36.1 % (10.0-50.0); Mean Corpuscular Hemoglobin 28.7 pg (28.0-32.0); Mean Corpuscular Hgb Conc. 32.8 g/dL (32.0-36.0); Mean Corpuscular Volume 87.6 fL (80.0-100.0); Monocytes # (auto) 0.5 uL; Monocytes % (auto) 6.8 % (0.0-12.0); Neutrophils % (auto) 54.6 % (37.0-80.0); Platelet Count (auto) 220 10^3/uL (140-450); Red Blood Cells 5.03 10^6/uL (4.0-5.20); Red Cell Distribution Width 16.2 % (11.8-14.3); White Blood Cell 7.3 10^3/uL (4.4-10.8)
[2018-04-24 19:54] LABS: Alanine Aminotransferase 28 U/L (13-56); Albumin 3.3 g/dL (3.4-5.0); Anion Gap 5 (5-15); Blood Urea Nitrogen 13 mg/dL (7-18); Calcium 8.6 mg/dL (8.5-10.1); Carbon Dioxide 28 mmol/L (21-32); Chloride 104 mmol/L (98-107); Glucose 257 mg/dL (74-106); Potassium 4.4 mmol/L (3.5-5.1); Sodium 137 mmol/L (136-145)
[2018-04-24 19:59] LABS: Alkaline Phosphatase 139 U/L (45-117); Aspartate Aminotransferase 19 U/L (15-37); BUN/Creatinine Ratio 17.3; Bilirubin, Total 0.2 mg/dL (0.2-1.0); GFR African American 101 mL/min; GFR Non-African American 83 mL/min; Total Protein 6.6 g/dL (6.4-8.2)
[2018-04-24 22:31] LABS: Urine Bacteria NONE SEEN /hpf (None Seen); Urine Blood Negative /uL (Negative); Urine Specific Gravity 1.021 (1.001-1.035); Urine WBC 6 /hpf (0 - 5)
[2018-04-25] MEDS ORDERED: ASPirin 81 mg TAB PO ONE (07:15)
[2018-04-25] MEDS ORDERED: NITROGLYCERIN 0.4 MG SL TAB SL ONE (07:15)
[2018-04-25] MEDS ORDERED: MORPHINE SULFATE 4 MG/ML SYR/VIAL IV PRN (08:15)
[2018-04-25] MEDS ORDERED: DEXTROSE (50%) 50ML SYRG IV PRN (08:15)
[2018-04-25] MEDS ORDERED: LACTULOSE 20Gm/30ML SOLN PO PRN (08:15)
[2018-04-25] MEDS ORDERED: NITROGLYCERIN 0.4 MG SL TAB SL PRN (08:15)
[2018-04-25] MEDS: SODIUM CHLORIDE 0.9% 1,000 ML IV SCH ×2 (09:01→21:58)
[2018-04-25] MEDS: CARVEDILOL 3.125 MG TAB PO SCH ×2 (09:35→21:58)
[2018-04-25] MEDS: ASPirin 81 mg TAB PO SCH (09:35)
[2018-04-25] MEDS: ENOXAPARIN SOD 40 MG/0.4 ML SYRINGE SC SCH (09:36)
[2018-04-25] MEDS: PANTOPRAZOLE 40 MG TAB PO SCH (09:36)
[2018-04-25] MEDS: NITROGLYCERIN 0.2MG/HR TOPICAL PATCH TD SCH (09:36)
[2018-04-25] MEDS ORDERED: TEMAZEPAM 15 MG CAP PO PRN (09:45)
[2018-04-25] MEDS ORDERED: ACETAMINOPHEN 500 MG TAB PO PRN (09:45)
[2018-04-25] MEDS ORDERED: LORazepam 0.5 MG TAB PO PRN (09:45)
[2018-04-25] MEDS ORDERED: ALBUTEROL SULF 2.5 MG/0.5ML(0.5%) NEB SOLN NEB PRN (09:45)
[2018-04-25 09:56] VITALS: BP 149/79
[2018-04-25] MEDS ORDERED: METOPROLOL TARTRATE 25 MG TAB PO SCH (10:00)
[2018-04-25 10:50] VITALS: BP 102/57
[2018-04-25] MEDS: ACCU-CHEK COMFORT CURVE STRIP VI SCH ×3 (11:30→21:59)
[2018-04-25] MEDS: InsuLIN REG 1unit/0.01ml Soln (100units/ml) SC SCH ×2 (11:30→17:00)
[2018-04-25] MEDS: MORPHINE SULFATE 4 MG/ML SYR/VIAL IV PRN ×2 (12:33→20:10)
[2018-04-25] MEDS: PROMETHAZINE HCL 25 MG/ML 1ML IV PRN ×2 (12:33→20:17)
[2018-04-25 13:00] VITALS: BP 102/57
[2018-04-25] MEDS: DOXYCYCLINE 100MG/250ML 250 ML IV SCH ×2 (13:00→21:50)
[2018-04-25] MEDS: IPRATROPIUM BROM 0.5 MG/2.5ML INH SOL NEB SCH ×2 (14:11→19:15)
[2018-04-25] MEDS: ALBUTEROL SULF 2.5 MG/0.5ML(0.5%) NEB SOLN NEB SCH ×2 (14:11→19:15)
[2018-04-25] MEDS ORDERED: IOHEXOL 350 MG/ML 100ML IJ ONE (15:12)
[2018-04-25 15:29] LABS: INR 0.94 (0.9-1.15); Partial Thromboplastin Time 28.5 sec (23.78-33.04); Prothrombin Time 10.1 sec (9.27-12.13)
[2018-04-25 17:00] VITALS: BP 100/59
[2018-04-25] MEDS: HYDROcodone-ACET 5/325MG TAB PO PRN ×2 (17:36→18:30)
[2018-04-25 22:00] VITALS: BP 103/66
[2018-04-25] MEDS ORDERED: OLANZapine 5 MG TAB PO SCH (22:00)
[2018-04-25] MEDS ORDERED: GABAPENTIN 300 MG CAP PO SCH (22:00)
[2018-04-25] MEDS ORDERED: ATORVASTATIN 20 MG TAB PO SCH (22:00)
[2018-04-26] MEDS: ALBUTEROL SULF 2.5 MG/0.5ML(0.5%) NEB SOLN NEB SCH ×3 (00:15→11:20)
[2018-04-26] MEDS: IPRATROPIUM BROM 0.5 MG/2.5ML INH SOL NEB SCH ×3 (00:15→11:20)
[2018-04-26] MEDS: InsuLIN REG 1unit/0.01ml Soln (100units/ml) SC SCH ×4 (01:40→17:00)
[2018-04-26] MEDS: PROMETHAZINE HCL 25 MG/ML 1ML IV PRN (02:07)
[2018-04-26] MEDS: MORPHINE SULFATE 4 MG/ML SYR/VIAL IV PRN ×2 (02:07→09:14)
[2018-04-26 06:24] VITALS: BP 98/61
[2018-04-26] MEDS: ACCU-CHEK COMFORT CURVE STRIP VI SCH ×3 (06:32→17:00)
[2018-04-26 06:40] LABS: Basophils # (auto) 0 uL; Basophils % (auto) 0.3 % (0.0-2.0); Eosinophils # (auto) 0.1 uL; Eosinophils % (auto) 1.8 % (0.0-7.0); Hematocrit 42.1 % (36.0-46.0); Hemoglobin 13.9 g/dL (12.2-16.2); Lymphocytes # (auto) 2.8 uL; Lymphocytes % (auto) 37.4 % (10.0-50.0); Mean Corpuscular Hemoglobin 28.7 pg (28.0-32.0); Mean Corpuscular Volume 86.7 fL (80.0-100.0); Monocytes # (auto) 0.5 uL; Monocytes % (auto) 6.9 % (0.0-12.0); Neutrophils # (auto) 4.1 uL; Neutrophils % (auto) 53.6 % (37.0-80.0); Nucleated Red Blood Cells % 0.1 %; Platelet Count (auto) 222 10^3/uL (140-450); Red Blood Cells 4.86 10^6/uL (4.0-5.20); Red Cell Distribution Width 15.9 % (11.8-14.3); White Blood Cell 7.6 10^3/uL (4.4-10.8)
[2018-04-26 06:53] LABS: Albumin 3.1 g/dL (3.4-5.0); Calcium 9.2 mg/dL (8.5-10.1); Potassium 3.9 mmol/L (3.5-5.1)
[2018-04-26 06:59] LABS: Bilirubin, Total 0.5 mg/dL (0.2-1.0); Total Protein 6.3 g/dL (6.4-8.2)
[2018-04-26 09:00] VITALS: BP 99/60
[2018-04-26] MEDS: DOXYCYCLINE 100MG/250ML 250 ML IV SCH (09:17)
[2018-04-26] MEDS: PANTOPRAZOLE 40 MG TAB PO SCH (09:20)
[2018-04-26] MEDS: ENOXAPARIN SOD 40 MG/0.4 ML SYRINGE SC SCH (09:20)
[2018-04-26] MEDS: CARVEDILOL 3.125 MG TAB PO SCH (09:25)
[2018-04-26] MEDS: ASPirin 81 mg TAB PO SCH (09:27)
[2018-04-26] MEDS: NITROGLYCERIN 0.2MG/HR TOPICAL PATCH TD SCH (09:28)
[2018-04-26] MEDS: HYDROcodone-ACET 5/325MG TAB PO PRN (11:51)
[2018-04-26] MEDS: SODIUM CHLORIDE 0.9% 1,000 ML IV SCH (11:52)
[2018-04-26 13:00] VITALS: BP 92/58
[2018-04-26 13:28] VITALS: BP 93/60
[2018-04-26 17:00] VITALS: BP 123/67
== END 2018-04-26 17:00 | disposition home or self-care (01) | DRG 313 ==
LOC: ER 18:07 → TELE 04-25 08:17 → TELE-CENTR 04-25 10:27
PROVIDERS: ADMIT Internal Medicine; ATTEND Internal Medicine
DX: R07.9 Chest pain, unspecified (principal); I50.9 Heart failure, unspecified; I11.0 Hypertensive heart disease with heart failure; E11.65 Type 2 diabetes mellitus with hyperglycemia; F17.210 Nicotine dependence, cigarettes, uncomplicated; F41.9 Anxiety disorder, unspecified; I25.10 Atherosclerotic heart disease of native coronary artery without angina pectoris; J44.9 Chronic obstructive pulmonary disease, unspecified; K21.9 Gastro-esophageal reflux disease without esophagitis; K44.9 Diaphragmatic hernia without obstruction or gangrene; Z82.3 Family history of stroke; Z82.49 Family history of ischemic heart disease and other diseases of the circulatory system; Z83.3 Family history of diabetes mellitus; Z87.442 Personal history of urinary calculi; Z90.710 Acquired absence of both cervix and uterus; Z79.899 Other long term (current) drug therapy; Z79.82 Long term (current) use of aspirin; Z79.51 Long term (current) use of inhaled steroids; Z90.49 Acquired absence of other specified parts of digestive tract; Z95.5 Presence of coronary angioplasty implant and graft; Z80.9 Family history of malignant neoplasm, unspecified; Z88.1 Allergy status to other antibiotic agents; Z88.0 Allergy status to penicillin; Z79.84 Long term (current) use of oral hypoglycemic drugs
CPT/HCPCS: 36415; 71046; 71275; 80053; 80061; 81001; 82550; 82962; 83036; 83880; 84484; 85025; 85379; 85610; 85730; 86141; 87081; 93005; 94640; 96361; 96365; G0378; J1815; J3490

== ENCOUNTER 2018-05-16 20:16 | Emergency (ER) | payer MEDICARE ==
[~2018-05-16] VITALS: Ht 162.6 cm; Wt 68.5 kg
[2018-05-16 20:57] LABS: Basophils # (auto) 0 uL; Basophils % (auto) 0.3 % (0.0-2.0); Eosinophils # (auto) 0.1 uL; Eosinophils % (auto) 1.6 % (0.0-7.0); Hematocrit 45.5 % (36.0-46.0); Hemoglobin 14.7 g/dL (12.2-16.2); Lymphocytes % (auto) 33.2 % (10.0-50.0); Mean Corpuscular Hemoglobin 28.4 pg (28.0-32.0); Mean Corpuscular Hgb Conc. 32.3 g/dL (32.0-36.0); Monocytes # (auto) 0.4 uL; Monocytes % (auto) 7.2 % (0.0-12.0); Neutrophils # (auto) 3.5 uL; Neutrophils % (auto) 57.7 % (37.0-80.0); Platelet Count (auto) 219 10^3/uL (140-450); Red Blood Cells 5.16 10^6/uL (4.0-5.20); Red Cell Distribution Width 15.1 % (11.8-14.3)
[2018-05-16 21:11] LABS: Albumin 3.6 g/dL (3.4-5.0); Anion Gap 6 (5-15); Blood Urea Nitrogen 10 mg/dL (7-18); Calcium 8.5 mg/dL (8.5-10.1); Carbon Dioxide 26 mmol/L (21-32); Chloride 103 mmol/L (98-107); Glucose 294 mg/dL (74-106); Magnesium 2.1 mg/dL (1.6-2.6); Potassium 3.9 mmol/L (3.5-5.1); Sodium 135 mmol/L (136-145)
[2018-05-16 21:16] LABS: Alanine Aminotransferase 31 U/L (13-56); Alkaline Phosphatase 103 U/L (45-117); Aspartate Aminotransferase 19 U/L (15-37); BUN/Creatinine Ratio 12.7; Bilirubin, Total 0.2 mg/dL (0.2-1.0); GFR African American 95 mL/min; GFR Non-African American 78 mL/min; Total Protein 6.9 g/dL (6.4-8.2)
[2018-05-17] MEDS ORDERED: SODIUM CHLORIDE 0.9% 1,000 ML IV ONE (07:52)
[2018-05-17 11:01] VITALS: BP 121/75
[2018-05-17 11:43] LABS: Urine Bacteria NONE SEEN /hpf (None Seen); Urine Blood Negative /uL (Negative); Urine WBC 4 /hpf (0 - 5)
== END 2018-05-17 12:22 | disposition home or self-care (01) ==
LOC: ER 20:19
DX: E11.65 Type 2 diabetes mellitus with hyperglycemia (principal); R11.2 Nausea with vomiting, unspecified; I25.10 Atherosclerotic heart disease of native coronary artery without angina pectoris; J44.9 Chronic obstructive pulmonary disease, unspecified; K21.9 Gastro-esophageal reflux disease without esophagitis; E78.5 Hyperlipidemia, unspecified; I10 Essential (primary) hypertension; I25.2 Old myocardial infarction; F17.210 Nicotine dependence, cigarettes, uncomplicated; Z88.0 Allergy status to penicillin; Z88.8 Allergy status to other drugs, medicaments and biological substances; Z88.1 Allergy status to other antibiotic agents; Z79.82 Long term (current) use of aspirin; Z79.899 Other long term (current) drug therapy; Z87.442 Personal history of urinary calculi; Z90.49 Acquired absence of other specified parts of digestive tract; Z90.710 Acquired absence of both cervix and uterus; Z98.61 Coronary angioplasty status
CPT/HCPCS: 36415; 71045; 80053; 81001; 83735; 84484; 85025; 93005

== ENCOUNTER 2018-10-17 22:54 | Emergency (ER) | payer MEDICARE ==
[~2018-10-17] VITALS: Ht 162.6 cm; Wt 64.0 kg
[2018-10-18] MEDS ORDERED: ONDANSETRON ODT 4 MG TAB PO ONE (00:30)
[2018-10-18] MEDS ORDERED: MEPERIDINE HCL (50 MG/ML) 1 ML VIAL IM ONE (00:30)
[2018-10-18 00:43] VITALS: BP 123/73
== END 2018-10-18 01:18 | disposition home or self-care (01) ==
LOC: ER 23:01
DX: M79.671 Pain in right foot (principal); I10 Essential (primary) hypertension; E11.9 Type 2 diabetes mellitus without complications; I25.2 Old myocardial infarction; J44.9 Chronic obstructive pulmonary disease, unspecified; E78.5 Hyperlipidemia, unspecified; F17.210 Nicotine dependence, cigarettes, uncomplicated; Z86.73 Personal history of transient ischemic attack (TIA), and cerebral infarction without residual deficits; Z90.89 Acquired absence of other organs; Z90.710 Acquired absence of both cervix and uterus; Z88.0 Allergy status to penicillin; Z88.1 Allergy status to other antibiotic agents
CPT/HCPCS: 73630; 96372; 99283; J2175; L3260; Q0162

== ENCOUNTER → 2019-08-19 | Emergency (ER) | payer MEDICARE ==
[~2019-08-19] VITALS: Ht 162.6 cm; Wt 66.7 kg
[~2019-08-19] MED LIST changes: +ASPI-404 PO; -ASPI81TA27 PO; +DIVA500T13 PO; -DIVA500T59 PO; -OLAN10TA29 PO; +OLAN1TAB19 PO; +ONDANSETRON ODT 4 MG TAB PO ONE
[2019-08-19 16:12] LABS: Basophils # (auto) 0 10 ^3/uL (0-0.2); Basophils % (auto) 0.5 % (0.0-2.0); Eosinophils # (auto) 0 10 ^3/uL (0-0.8); Eosinophils % (auto) 0.3 % (0.0-7.0); Hematocrit 44.1 % (36.0-46.0); Hemoglobin 15.1 g/dL (12.2-16.2); Lymphocytes # (auto) 1.7 10 ^3/uL (0.4-5.4); Mean Corpuscular Hemoglobin 29.2 pg (28.0-32.0); Mean Corpuscular Hgb Conc. 34.2 g/dL (32.0-36.0); Mean Corpuscular Volume 85.5 fL (80.0-100.0); Monocytes # (auto) 0.4 10 ^3/uL (0-1.3); Monocytes % (auto) 4.8 % (0.0-12.0); Neutrophils # (auto) 5.5 10 ^3/uL (1.6-8.6); Neutrophils % (auto) 72.4 % (37.0-80.0); Platelet Count (auto) 236 10^3/uL (140-450); Red Blood Cells 5.16 10^6/uL (4.0-5.20); Red Cell Distribution Width 13.2 % (11.8-14.3); White Blood Cell 7.6 10^3/uL (4.4-10.8)
[2019-08-19 16:17] LABS: Urine Bacteria NONE SEEN /hpf (None Seen); Urine Blood Negative /uL (Negative); Urine Specific Gravity 1.007 (1.001-1.035); Urine WBC <1 /hpf (0 - 5)
[2019-08-19 16:30] LABS: Alcohol, Urine < 3.0 mg/dL (0-5); Amphetamine Screen, Urine NEGATIVE (NEGATIVE); Barbiturate Scree,Urine NEGATIVE (NEGATIVE); Benzodiazephine Screen, Urine NEGATIVE (NEGATIVE); Cannabinoid Screen, Urine POSITIVE (NEGATIVE); Cocaine Screen, Urine NEGATIVE (NEGATIVE); Opiate Scree,Urine NEGATIVE (NEGATIVE); Phencyclidine Screen, Urine NEGATIVE (NEGATIVE)
[2019-08-19 16:31] LABS: Alanine Aminotransferase 39 U/L (13-56); Albumin 3.8 g/dL (3.4-5.0); Anion Gap 6 (5-15); Aspartate Aminotransferase 23 U/L (15-37); BUN/Creatinine Ratio 10.2; Blood Urea Nitrogen 6 mg/dL (7-18); Calcium 8.9 mg/dL (8.5-10.1); Carbon Dioxide 27 mmol/L (21-32); Chloride 106 mmol/L (98-107); GFR African American 132 mL/min; GFR Non-African American 109 mL/min; Glucose 178 mg/dL (74-106); Potassium 3.7 mmol/L (3.5-5.1); Sodium 139 mmol/L (136-145)
[2019-08-19 16:38] LABS: Alkaline Phosphatase 160 U/L (45-117); Bilirubin, Total 0.6 mg/dL (0.2-1.0); Total Protein 7.4 g/dL (6.4-8.2)
[2019-08-19 16:47] VITALS: BP 116/74
== END | disposition home or self-care (01) ==
LOC: ER 15:01
DX: A08.4 Viral intestinal infection, unspecified (principal); J44.9 Chronic obstructive pulmonary disease, unspecified; I11.0 Hypertensive heart disease with heart failure; I50.9 Heart failure, unspecified; I25.10 Atherosclerotic heart disease of native coronary artery without angina pectoris; E11.9 Type 2 diabetes mellitus without complications; K21.9 Gastro-esophageal reflux disease without esophagitis; E78.5 Hyperlipidemia, unspecified; I25.2 Old myocardial infarction; F17.210 Nicotine dependence, cigarettes, uncomplicated; Z88.1 Allergy status to other antibiotic agents; Z88.0 Allergy status to penicillin; Z79.899 Other long term (current) drug therapy
CPT/HCPCS: 36415; 71046; 74176; 80053; 80307; 81001; 84484; 85025; 87804; 93005

== ENCOUNTER 2019-11-30 22:00 | Inpatient (IN) | payer MEDICARE ==
[~2019-11-30] VITALS: Ht 162.6 cm; Wt 63.8 kg
[~2019-11-30 22:00] MED LIST changes: -ONDANSETRON ODT 4 MG TAB PO ONE
[2019-12-01 01:08] LABS: Basophils # (auto) 0.1 10 ^3/uL (0-0.2); Basophils % (auto) 0.5 % (0.0-2.0); Eosinophils # (auto) 0.2 10 ^3/uL (0-0.8); Eosinophils % (auto) 1.6 % (0.0-7.0); Hematocrit 44.4 % (36.0-46.0); Hemoglobin 14.6 g/dL (12.2-16.2); Lymphocytes # (auto) 2.5 10 ^3/uL (0.4-5.4); Mean Corpuscular Hemoglobin 28.4 pg (28.0-32.0); Mean Corpuscular Hgb Conc. 32.9 g/dL (32.0-36.0); Mean Corpuscular Volume 86.2 fL (80.0-100.0); Monocytes # (auto) 0.7 10 ^3/uL (0-1.3); Monocytes % (auto) 6.5 % (0.0-12.0); Neutrophils % (auto) 67.4 % (37.0-80.0); Nucleated Red Blood Cells % 0.1 %; Platelet Count (auto) 229 10^3/uL (140-450); Red Blood Cells 5.15 10^6/uL (4.0-5.20); White Blood Cell 10.4 10^3/uL (4.4-10.8)
[2019-12-01 01:21] LABS: INR 0.93 (0.9-1.15); Partial Thromboplastin Time 23.5 sec (23.64-32.05)
[2019-12-01 01:27] LABS: Albumin 3.5 g/dL (3.4-5.0); Anion Gap 12 (5-15); Calcium 8.7 mg/dL (8.5-10.1); Carbon Dioxide 20 mmol/L (21-32); Chloride 107 mmol/L (98-107); Glucose 239 mg/dL (74-106); Magnesium 1.9 mg/dL (1.6-2.6); Potassium 3.7 mmol/L (3.5-5.1); Sodium 139 mmol/L (136-145)
[2019-12-01 01:36] LABS: Alanine Aminotransferase 28 U/L (13-56); Alkaline Phosphatase 177 U/L (45-117); Aspartate Aminotransferase 21 U/L (15-37); BUN/Creatinine Ratio 9.7; Bilirubin, Total 0.2 mg/dL (0.2-1.0); Blood Urea Nitrogen 7 mg/dL (7-18); GFR African American 105 mL/min; GFR Non-African American 87 mL/min; Total Protein 7.1 g/dL (6.4-8.2)
[2019-12-01] MEDS ORDERED: SODIUM CHLORIDE 0.9% 1,000 ML IV SCH (04:50)
[2019-12-01] MEDS ORDERED: MORPHINE SULF INJ 2 MG/ML SYRINGE 1ML IV PRN (05:00)
[2019-12-01] MEDS ORDERED: NITROGLYCERIN 0.4 MG SL TAB SL PRN (05:00)
[2019-12-01] MEDS ORDERED: LORazepam 0.5 MG TAB PO PRN ×2 (05:00→14:30)
[2019-12-01] MEDS ORDERED: DOCUSATE SOD 100 MG CAP PO PRN (05:00)
[2019-12-01] MEDS ORDERED: ALBUTEROL SULF 2.5 MG/0.5ML(0.5%) NEB SOLN NEB PRN (05:00)
[2019-12-01] MEDS ORDERED: ACETAMINOPHEN 325 MG TAB PO PRN (05:00)
[2019-12-01] MEDS ORDERED: HYDROcodone-ACET 10/325MG TAB PO PRN (05:00)
[2019-12-01] MEDS ORDERED: IPRATROPIUM BROM 0.5 MG/2.5ML INH SOL NEB PRN (05:00)
[2019-12-01] MEDS ORDERED: ACETAMINOPHEN 500 MG TAB PO PRN (05:00)
[2019-12-01 05:28] LABS: Urine Bacteria NONE SEEN /hpf (None Seen); Urine Blood Negative /uL (Negative); Urine Mucus FEW (None Seen); Urine Specific Gravity 1.004 (1.001-1.035); Urine WBC <1 /hpf (0 - 5)
[2019-12-01] MEDS ORDERED: DOXYCYCLINE 100 MG TAB/CAP PO ONE (05:30)
[2019-12-01] MEDS ORDERED: ASCORBIC ACID 1,000 MG TAB PO ONE (05:30)
[2019-12-01] MEDS ORDERED: CARVEDILOL 3.125 MG TAB PO ONE (05:30)
[2019-12-01] MEDS ORDERED: ASPirin-EC 81 mg tab PO ONE (05:30)
[2019-12-01] MEDS: ALBUTEROL SULF HFA 90MCG INH 200DOSE IN SCH ×2 (06:00→14:00)
[2019-12-01] MEDS: CARISOPRODOL 350 MG TAB PO SCH ×3 (06:00→22:10)
[2019-12-01] MEDS: diphenhdrAMINE HCL 25 MG CAP PO SCH ×3 (06:25→22:08)
[2019-12-01] MEDS: CARVEDILOL 3.125 MG TAB PO SCH ×2 (08:03→22:09)
[2019-12-01] MEDS: DOXYCYCLINE 100 MG TAB/CAP PO SCH ×2 (08:03→22:10)
[2019-12-01] MEDS: PANTOPRAZOLE 40 MG TAB PO SCH (08:03)
[2019-12-01] MEDS: ASPirin-EC 81 mg tab PO SCH (08:03)
[2019-12-01] MEDS: ENOXAPARIN SOD 40 MG/0.4 ML SYRINGE SC SCH (08:04)
[2019-12-01 08:36] LABS: Basophils # (auto) 0 10 ^3/uL (0-0.2); Basophils % (auto) 0.3 % (0.0-2.0); Eosinophils # (auto) 0.1 10 ^3/uL (0-0.8); Eosinophils % (auto) 1.5 % (0.0-7.0); Hematocrit 40.3 % (36.0-46.0); Hemoglobin 13.5 g/dL (12.2-16.2); Lymphocytes # (auto) 2.4 10 ^3/uL (0.4-5.4); Lymphocytes % (auto) 31.7 % (10.0-50.0); Mean Corpuscular Hemoglobin 28.6 pg (28.0-32.0); Mean Corpuscular Hgb Conc. 33.6 g/dL (32.0-36.0); Mean Corpuscular Volume 85.2 fL (80.0-100.0); Monocytes # (auto) 0.7 10 ^3/uL (0-1.3); Monocytes % (auto) 8.9 % (0.0-12.0); Neutrophils # (auto) 4.4 10 ^3/uL (1.6-8.6); Neutrophils % (auto) 57.6 % (37.0-80.0); Platelet Count (auto) 216 10^3/uL (140-450); Red Blood Cells 4.73 10^6/uL (4.0-5.20); White Blood Cell 7.7 10^3/uL (4.4-10.8)
[2019-12-01 08:58] LABS: Potassium 3.9 mmol/L (3.5-5.1)
[2019-12-01 09:10] LABS: BUN/Creatinine Ratio 13.6; Calcium 8.7 mg/dL (8.5-10.1); Magnesium 1.9 mg/dL (1.6-2.6)
[2019-12-01 09:18] VITALS: BP 168/81
[2019-12-01] MEDS ORDERED: ZINC SULFATE 220mg CAP or TAB PO SCH (10:00)
[2019-12-01] MEDS ORDERED: ASCORBIC ACID 1,000 MG TAB PO SCH (10:00)
[2019-12-01] MEDS ORDERED: methylPREDNISolone SOD SUCC 125 MG/2 ML VL IV SCH (10:00)
[2019-12-01] MEDS ORDERED: CHOLECALCIFEROL (VITD3) 1,000IU=25mCg TAB PO SCH (10:00)
[2019-12-01 10:30] VITALS: BP 147/84
[2019-12-01] MEDS: MORPHINE SULF INJ 2 MG/ML SYRINGE 1ML IV PRN ×2 (11:33→22:11)
[2019-12-01] MEDS: ONDANSETRON HCL 4 MG/2 ML VIAL IV PRN ×2 (11:33→22:11)
[2019-12-01 13:00] VITALS: BP 132/73
[2019-12-01] MEDS ORDERED: PNEUMOCOCCAL VACC POLYS 25 MCG/0.5 ML VIAL IM ONE (13:00)
[2019-12-01] MEDS ORDERED: MAGNESIUM SULFATE 1GM/100ML 100 ML IV ONE (14:30)
[2019-12-01] MEDS ORDERED: DEXTROSE (50%) 50ML SYRG IV PRN (14:30)
[2019-12-01 16:54] VITALS: BP 145/78
[2019-12-01] MEDS: InsuLIN REG 1unit/0.01ml Soln (100units/ml) SC SCH ×2 (17:04→22:16)
[2019-12-01] MEDS: ACCU-CHEK COMFORT CURVE STRIP VI SCH ×2 (17:08→22:11)
[2019-12-01] MEDS: OLANZapine 5 MG TAB PO SCH (22:10)
[2019-12-01] MEDS: GABAPENTIN 300 MG CAP PO SCH (22:10)
[2019-12-01 22:13] VITALS: BP 145/86
[2019-12-02 05:05] VITALS: BP 134/66
[2019-12-02 06:43] LABS: Basophils # (auto) 0 10 ^3/uL (0-0.2); Basophils % (auto) 0.3 % (0.0-2.0); Eosinophils # (auto) 0 10 ^3/uL (0-0.8); Eosinophils % (auto) 0.1 % (0.0-7.0); Hematocrit 38.5 % (36.0-46.0); Hemoglobin 12.9 g/dL (12.2-16.2); Lymphocytes # (auto) 2.3 10 ^3/uL (0.4-5.4); Lymphocytes % (auto) 18.9 % (10.0-50.0); Mean Corpuscular Hemoglobin 28.4 pg (28.0-32.0); Mean Corpuscular Hgb Conc. 33.4 g/dL (32.0-36.0); Mean Corpuscular Volume 84.9 fL (80.0-100.0); Monocytes # (auto) 0.7 10 ^3/uL (0-1.3); Monocytes % (auto) 5.5 % (0.0-12.0); Neutrophils # (auto) 9.2 10 ^3/uL (1.6-8.6); Neutrophils % (auto) 75.2 % (37.0-80.0); Platelet Count (auto) 214 10^3/uL (140-450); Red Blood Cells 4.53 10^6/uL (4.0-5.20); Red Cell Distribution Width 12.8 % (11.8-14.3); White Blood Cell 12.2 10^3/uL (4.4-10.8)
[2019-12-02] MEDS: ACCU-CHEK COMFORT CURVE STRIP VI SCH ×4 (06:43→22:00)
[2019-12-02] MEDS: diphenhdrAMINE HCL 25 MG CAP PO SCH ×3 (06:44→22:53)
[2019-12-02] MEDS: CARISOPRODOL 350 MG TAB PO SCH ×3 (06:44→22:54)
[2019-12-02] MEDS: InsuLIN REG 1unit/0.01ml Soln (100units/ml) SC SCH ×3 (06:47→18:31)
[2019-12-02] MEDS: MORPHINE SULF INJ 2 MG/ML SYRINGE 1ML IV PRN ×4 (06:51→22:53)
[2019-12-02] MEDS: ONDANSETRON HCL 4 MG/2 ML VIAL IV PRN ×4 (06:52→22:53)
[2019-12-02 06:59] LABS: Chloride 99 mmol/L (98-107); Potassium 3.8 mmol/L (3.5-5.1); Sodium 133 mmol/L (136-145)
[2019-12-02 07:09] LABS: Alanine Aminotransferase 34 U/L (13-56); Alkaline Phosphatase 116 U/L (45-117); Anion Gap 6 (5-15); Aspartate Aminotransferase 19 U/L (15-37); BUN/Creatinine Ratio 17.2; Bilirubin, Total 0.4 mg/dL (0.2-1.0); Blood Urea Nitrogen 11 mg/dL (7-18); Calcium 8.7 mg/dL (8.5-10.1); Carbon Dioxide 28 mmol/L (21-32); GFR African American 121 mL/min; GFR Non-African American 100 mL/min; Glucose 137 mg/dL (74-106); Total Protein 6.3 g/dL (6.4-8.2)
[2019-12-02 08:56] VITALS: BP 112/69
[2019-12-02] MEDS: DOXYCYCLINE 100 MG TAB/CAP PO SCH (10:00)
[2019-12-02] MEDS: CARVEDILOL 3.125 MG TAB PO SCH ×2 (10:13→22:00)
[2019-12-02] MEDS: PANTOPRAZOLE 40 MG TAB PO SCH (10:13)
[2019-12-02] MEDS: ASPirin-EC 81 mg tab PO SCH (10:13)
[2019-12-02] MEDS: ENOXAPARIN SOD 40 MG/0.4 ML SYRINGE SC SCH (10:14)
[2019-12-02 12:34] VITALS: BP 100/64
[2019-12-02 16:49] VITALS: BP 110/69
[2019-12-02] MEDS ORDERED: diphenhdrAMINE HCL 50 MG/1 ML VL IV ONE (18:15)
[2019-12-02 22:00] VITALS: BP 107/57
[2019-12-02] MEDS: OLANZapine 5 MG TAB PO SCH (22:53)
[2019-12-02] MEDS: ATORVASTATIN 20 MG TAB PO SCH (22:53)
[2019-12-02] MEDS: GABAPENTIN 300 MG CAP PO SCH (22:54)
[2019-12-03] MEDS: InsuLIN REG 1unit/0.01ml Soln (100units/ml) SC SCH ×5 (00:31→21:52)
[2019-12-03] MEDS: MORPHINE SULF INJ 2 MG/ML SYRINGE 1ML IV PRN ×2 (03:44→08:21)
[2019-12-03 05:00] VITALS: BP 123/75
[2019-12-03] MEDS: CARISOPRODOL 350 MG TAB PO SCH ×3 (05:46→21:26)
[2019-12-03] MEDS: diphenhdrAMINE HCL 25 MG CAP PO SCH ×3 (05:46→21:25)
[2019-12-03 05:58] LABS: Basophils # (auto) 0 10 ^3/uL (0-0.2); Basophils % (auto) 0.3 % (0.0-2.0); Eosinophils # (auto) 0.1 10 ^3/uL (0-0.8); Eosinophils % (auto) 0.9 % (0.0-7.0); Hematocrit 41.6 % (36.0-46.0); Hemoglobin 13.7 g/dL (12.2-16.2); Lymphocytes # (auto) 3.6 10 ^3/uL (0.4-5.4); Lymphocytes % (auto) 47.8 % (10.0-50.0); Mean Corpuscular Hemoglobin 28.2 pg (28.0-32.0); Mean Corpuscular Hgb Conc. 32.8 g/dL (32.0-36.0); Mean Corpuscular Volume 85.9 fL (80.0-100.0); Monocytes # (auto) 0.5 10 ^3/uL (0-1.3); Monocytes % (auto) 6.3 % (0.0-12.0); Neutrophils # (auto) 3.3 10 ^3/uL (1.6-8.6); Neutrophils % (auto) 44.7 % (37.0-80.0); Nucleated Red Blood Cells % 0.1 %; Platelet Count (auto) 214 10^3/uL (140-450); Red Blood Cells 4.85 10^6/uL (4.0-5.20); Red Cell Distribution Width 13.2 % (11.8-14.3); White Blood Cell 7.4 10^3/uL (4.4-10.8)
[2019-12-03 06:14] LABS: INR 0.98 (0.9-1.15); Partial Thromboplastin Time 26.2 sec (23.64-32.05)
[2019-12-03 06:31] LABS: Potassium 4.2 mmol/L (3.5-5.1)
[2019-12-03 06:42] LABS: BUN/Creatinine Ratio 24.6; Calcium 8.8 mg/dL (8.5-10.1)
[2019-12-03] MEDS: ACCU-CHEK COMFORT CURVE STRIP VI SCH ×4 (07:01→22:00)
[2019-12-03 08:24] VITALS: BP 114/67
[2019-12-03] MEDS: ENOXAPARIN SOD 40 MG/0.4 ML SYRINGE SC SCH (10:00)
[2019-12-03] MEDS: PANTOPRAZOLE 40 MG TAB PO SCH (10:26)
[2019-12-03] MEDS: CARVEDILOL 3.125 MG TAB PO SCH ×2 (10:26→21:47)
[2019-12-03] MEDS: ASPirin-EC 81 mg tab PO SCH (10:26)
[2019-12-03] MEDS ORDERED: LIDOCAINE 2%HCL (LOCAL ANESTH.) INJ 20ML MDV ONE (12:10)
[2019-12-03] MEDS ORDERED: IOHEXOL 350 MG/ML 100ML IJ ONE ×2 (12:11→12:13)
[2019-12-03] MEDS ORDERED: SODIUM CHL 0.9% 0 ML ONE (12:13)
[2019-12-03] MEDS ORDERED: ANGIOMAX 250 MG VIAL IV ONE (12:13)
[2019-12-03] MEDS ORDERED: MIDAZOLAM HCL 1MG/1ML-2 ML VIAL ONE (12:13)
[2019-12-03] MEDS ORDERED: fentaNYL CITRATE 100 MCG/2 ML VL ONE (12:13)
[2019-12-03] MEDS ORDERED: VERAPAMIL 2.5MG/ML INJ 2ML VIAL IV ONE (12:14)
[2019-12-03] MEDS ORDERED: HEPARIN SODIUM (PORCINE) 5000 UNITS/ML 1ML VIAL ONE (12:14)
[2019-12-03 14:40] VITALS: BP 110/65
[2019-12-03 15:15] VITALS: BP 110/65
[2019-12-03] MEDS: OLANZapine 5 MG TAB PO SCH (21:25)
[2019-12-03] MEDS: GABAPENTIN 300 MG CAP PO SCH (21:26)
[2019-12-03] MEDS: ATORVASTATIN 20 MG TAB PO SCH (21:27)
[2019-12-03] MEDS: HYDROcodone-ACET 5/325MG TAB PO PRN (21:42)
[2019-12-03 23:55] VITALS: BP 127/81
[2019-12-04 05:27] VITALS: BP 111/70
[2019-12-04] MEDS: diphenhdrAMINE HCL 25 MG CAP PO SCH (06:00)
[2019-12-04] MEDS: CARISOPRODOL 350 MG TAB PO SCH (06:55)
[2019-12-04] MEDS: HYDROcodone-ACET 5/325MG TAB PO PRN ×2 (06:57→11:34)
[2019-12-04] MEDS: InsuLIN REG 1unit/0.01ml Soln (100units/ml) SC SCH ×2 (07:00→11:34)
[2019-12-04] MEDS: ACCU-CHEK COMFORT CURVE STRIP VI SCH ×2 (07:01→11:18)
[2019-12-04 08:14] LABS: BUN/Creatinine Ratio 30.6; Calcium 8.9 mg/dL (8.5-10.1); Potassium 4.3 mmol/L (3.5-5.1)
[2019-12-04 09:13] VITALS: BP 106/54
[2019-12-04] MEDS: ASPirin-EC 81 mg tab PO SCH (10:08)
[2019-12-04] MEDS: CARVEDILOL 3.125 MG TAB PO SCH (10:08)
[2019-12-04] MEDS: PANTOPRAZOLE 40 MG TAB PO SCH (10:08)
[2019-12-04] MEDS: ENOXAPARIN SOD 40 MG/0.4 ML SYRINGE SC SCH (10:09)
[2019-12-04 12:37] VITALS: BP 116/72
[2019-12-04 13:00] VITALS: BP 108/65
[2019-12-04 13:41] VITALS: BP 106/54
== END 2019-12-04 13:55 | disposition home or self-care (01) | DRG 286 ==
LOC: EDBD 22:00 → ER 22:29 → TELE 22:30 → TELE-EAST 12-01 11:28 → TELE-CENTR 12-02 11:48
PROVIDERS: ADMIT Hospitalist; ATTEND Internal Medicine
PROC: 4A023N7 Measurement of Cardiac Sampling and Pressure, Left Heart, Percutaneous Approach (ICD-10-PCS; principal; 2019-12-03)
PROC: B2111ZZ Fluoroscopy of Multiple Coronary Arteries using Low Osmolar Contrast (ICD-10-PCS; 2019-12-03)
PROC: B2151ZZ Fluoroscopy of Left Heart using Low Osmolar Contrast (ICD-10-PCS; 2019-12-03)
DX: R07.89 Other chest pain (principal); I50.43 Acute on chronic combined systolic (congestive) and diastolic (congestive) heart failure; N39.0 Urinary tract infection, site not specified; F11.20 Opioid dependence, uncomplicated; I11.0 Hypertensive heart disease with heart failure; J06.9 Acute upper respiratory infection, unspecified; E78.5 Hyperlipidemia, unspecified; E11.40 Type 2 diabetes mellitus with diabetic neuropathy, unspecified; F20.9 Schizophrenia, unspecified; F41.9 Anxiety disorder, unspecified; F17.210 Nicotine dependence, cigarettes, uncomplicated; F32.9 Major depressive disorder, single episode, unspecified; J44.9 Chronic obstructive pulmonary disease, unspecified; K21.9 Gastro-esophageal reflux disease without esophagitis; Z79.82 Long term (current) use of aspirin; Z79.84 Long term (current) use of oral hypoglycemic drugs; Z79.899 Other long term (current) drug therapy; Z82.3 Family history of stroke; Z82.49 Family history of ischemic heart disease and other diseases of the circulatory system; Z87.442 Personal history of urinary calculi; Z90.710 Acquired absence of both cervix and uterus; Z95.5 Presence of coronary angioplasty implant and graft; Z83.3 Family history of diabetes mellitus; I25.2 Old myocardial infarction; Z88.8 Allergy status to other drugs, medicaments and biological substances; Z88.1 Allergy status to other antibiotic agents; Z88.0 Allergy status to penicillin; I25.10 Atherosclerotic heart disease of native coronary artery without angina pectoris; Z20.828 Contact with and (suspected) exposure to other viral communicable diseases
CPT/HCPCS: 36415; 70450; 70551; 71045; 71250; 80048; 80053; 80061; 81001; 82962; 83036; 83735; 83880; 84443; 84484; 85025; 85610; 85730; 86850; 86900; 86901; 87070; 87081; 87804; 87880; 93005; 93306; 93458; 93886; 93926; 97163; 99152; G0378; J1815; J2250; J2405

== ENCOUNTER 2019-12-24 19:42 | Emergency (ER) | payer MEDICARE ==
[~2019-12-24] VITALS: Ht 154.9 cm; Wt 86.2 kg
[2019-12-24 20:53] LABS: Urine Bacteria FEW /hpf (None Seen); Urine Blood Negative /uL (Negative); Urine Hyaline Cast FEW /lpf (0 - 2); Urine Specific Gravity 1.024 (1.001-1.035); Urine WBC <1 /hpf (0 - 5)
[2019-12-24 22:52] LABS: Basophils # (auto) 0 10 ^3/uL (0-0.2); Basophils % (auto) 0.6 % (0.0-2.0); Eosinophils # (auto) 0.1 10 ^3/uL (0-0.8); Eosinophils % (auto) 1.4 % (0.0-7.0); Hemoglobin 12.2 g/dL (12.2-16.2); Lymphocytes # (auto) 1.9 10 ^3/uL (0.4-5.4); Lymphocytes % (auto) 32.5 % (10.0-50.0); Mean Corpuscular Hemoglobin 28.4 pg (28.0-32.0); Mean Corpuscular Hgb Conc. 32.9 g/dL (32.0-36.0); Mean Corpuscular Volume 86.4 fL (80.0-100.0); Monocytes # (auto) 0.4 10 ^3/uL (0-1.3); Monocytes % (auto) 6.7 % (0.0-12.0); Neutrophils # (auto) 3.5 10 ^3/uL (1.6-8.6); Neutrophils % (auto) 58.8 % (37.0-80.0); Nucleated Red Blood Cells % 0.1 %; Platelet Count (auto) 218 10^3/uL (140-450); Red Blood Cells 4.28 10^6/uL (4.0-5.20); Red Cell Distribution Width 14.1 % (11.8-14.3)
[2019-12-24 23:13] LABS: Albumin 3.1 g/dL (3.4-5.0); Anion Gap 8 (5-15); Blood Urea Nitrogen 16 mg/dL (7-18); Calcium 8.1 mg/dL (8.5-10.1); Carbon Dioxide 25 mmol/L (21-32); Chloride 105 mmol/L (98-107); Glucose 380 mg/dL (74-106); Magnesium 1.8 mg/dL (1.6-2.6); Potassium 3.9 mmol/L (3.5-5.1); Sodium 138 mmol/L (136-145)
[2019-12-24 23:20] LABS: Alanine Aminotransferase 97 U/L (13-56); Alkaline Phosphatase 211 U/L (45-117); Aspartate Aminotransferase 41 U/L (15-37); BUN/Creatinine Ratio 17.4; Bilirubin, Total 0.2 mg/dL (0.2-1.0); CRP High Sensitivity 0.31 mg/dL (< 0.3); GFR African American 79 mL/min; GFR Non-African American 66 mL/min; Lactate Dehydrogenase 186 U/L (84-246); Total Protein 6.4 g/dL (6.4-8.2)
[2019-12-24 23:39] LABS: INR 0.92 (0.9-1.15); Partial Thromboplastin Time 25.4 sec (23.64-32.05)
[2019-12-25 02:40] VITALS: BP 140/72
== END 2019-12-25 02:58 | disposition home or self-care (01) ==
LOC: ER 19:42 → EDBD 19:42 → ER 12-25 02:58
DX: F41.9 Anxiety disorder, unspecified (principal); R07.89 Other chest pain; R11.2 Nausea with vomiting, unspecified; R10.9 Unspecified abdominal pain; Z20.828 Contact with and (suspected) exposure to other viral communicable diseases
CPT/HCPCS: 36415; 71045; 80053; 81001; 82010; 82728; 83605; 83615; 83735; 83880; 84443; 84484; 85025; 85379; 85610; 85730; 86141; 93005; 99285; U0003

== ENCOUNTER 2020-06-08 18:04 | Inpatient (IN) | payer MEDICARE ==
[~2020-06-08] VITALS: Ht 162.6 cm; Wt 80.1 kg
[~2020-06-08 18:04] MED LIST changes: -ASPI-404 PO; +ASPI-543 PO
[2020-06-08] MEDS ORDERED: KETOROLAC TROMETH 60MG/2ML VIAL IM ONE (23:15)
[2020-06-09 01:30] LABS: Basophils # (auto) 0 10 ^3/uL (0-0.2); Basophils % (auto) 0.6 % (0.0-2.0); Eosinophils # (auto) 0.2 10 ^3/uL (0-0.8); Eosinophils % (auto) 2.6 % (0.0-7.0); Hematocrit 26.1 % (36.0-46.0); Hemoglobin 8.5 g/dL (12.2-16.2); Lymphocytes # (auto) 2.8 10 ^3/uL (0.4-5.4); Lymphocytes % (auto) 40.5 % (10.0-50.0); Mean Corpuscular Hemoglobin 27.3 pg (28.0-32.0); Mean Corpuscular Hgb Conc. 32.7 g/dL (32.0-36.0); Mean Corpuscular Volume 83.4 fL (80.0-100.0); Monocytes # (auto) 0.6 10 ^3/uL (0-1.3); Monocytes % (auto) 8.1 % (0.0-12.0); Neutrophils # (auto) 3.4 10 ^3/uL (1.6-8.6); Neutrophils % (auto) 48.2 % (37.0-80.0); Nucleated Red Blood Cells % 0.2 %; Platelet Count (auto) 357 10^3/uL (140-450); Red Blood Cells 3.13 10^6/uL (4.0-5.20); Red Cell Distribution Width 14.4 % (11.8-14.3)
[2020-06-09 01:48] LABS: Chloride 104 mmol/L (98-107); INR 0.99 (0.9-1.15); Sodium 137 mmol/L (136-145)
[2020-06-09 02:00] LABS: Alanine Aminotransferase 27 U/L (13-56); Albumin 3.3 g/dL (3.4-5.0); Alkaline Phosphatase 104 U/L (45-117); Anion Gap 3 (5-15); Aspartate Aminotransferase 15 U/L (15-37); BUN/Creatinine Ratio 14.5; Bilirubin, Total 0.3 mg/dL (0.2-1.0); Blood Urea Nitrogen 10 mg/dL (7-18); CRP High Sensitivity 0.09 mg/dL (< 0.3); Calcium 8.2 mg/dL (8.5-10.1); Carbon Dioxide 30 mmol/L (21-32); Creatine Kinase IFCC 76 U/L (26-192); GFR African American 110 mL/min; GFR Non-African American 91 mL/min; Glucose 368 mg/dL (74-106); Lipase 153 U/L (73-393); Magnesium 1.6 mg/dL (1.6-2.6); Total Protein 5.9 g/dL (6.4-8.2)
[2020-06-09] MEDS ORDERED: SODIUM CHLORIDE 0.9% 2,000 ML IV ONE (02:30)
[2020-06-09] MEDS ORDERED: InsuLIN REG 1unit/0.01ml Soln (100units/ml) IV ONE (02:30)
[2020-06-09] MEDS ORDERED: IOHEXOL 300 MG/ML 100ML BOTTLE IJ ONE ×2 (02:33→09:25)
[2020-06-09] MEDS ORDERED: KETOROLAC TROMETH 30 MG/ML 1ML VIAL IV ONE (03:15)
[2020-06-09] MEDS ORDERED: MORPHINE SULFATE 4 MG/ML SYR/VIAL IV PRN (05:00)
[2020-06-09] MEDS ORDERED: DEXTROSE (50%) 50ML SYRG IV PRN (05:00)
[2020-06-09] MEDS ORDERED: ACETAMINOPHEN 325 MG TAB PO PRN (05:00)
[2020-06-09] MEDS ORDERED: TEMAZEPAM 15 MG CAP PO PRN (05:00)
[2020-06-09 05:44] LABS: Alcohol, Urine < 3.0 mg/dL (0-10); Amphetamine Screen, Urine NEGATIVE (NEGATIVE); Barbiturate Scree,Urine NEGATIVE (NEGATIVE); Benzodiazephine Screen, Urine NEGATIVE (NEGATIVE); Cannabinoid Screen, Urine NEGATIVE (NEGATIVE); Cocaine Screen, Urine NEGATIVE (NEGATIVE); Opiate Scree,Urine NEGATIVE (NEGATIVE); Phencyclidine Screen, Urine NEGATIVE (NEGATIVE)
[2020-06-09 05:46] LABS: Urine Bacteria FEW /hpf (None Seen); Urine Blood Negative /uL (Negative); Urine Mucus FEW (None Seen); Urine Specific Gravity 1.034 (1.001-1.035); Urine WBC 25 /hpf (0 - 5)
[2020-06-09] MEDS: SODIUM CHLORIDE 0.9% 1,000 ML IV SCH ×2 (05:59→18:22)
[2020-06-09] MEDS: InsuLIN REG 1unit/0.01ml Soln (100units/ml) SC SCH ×3 (06:05→18:21)
[2020-06-09] MEDS: ACCU-CHEK COMFORT CURVE STRIP VI SCH ×3 (06:06→18:10)
[2020-06-09] MEDS: ONDANSETRON HCL 4 MG/2 ML VIAL IV PRN ×3 (07:05→17:46)
[2020-06-09] MEDS: FAMOTIDINE 20 MG TAB PO SCH ×2 (10:16→22:41)
[2020-06-09] MEDS: levoFLOXacin 500MG 100 ML IV SCH (10:16)
[2020-06-09] MEDS: ENOXAPARIN SOD 40 MG/0.4 ML SYRINGE SC SCH (10:16)
[2020-06-09] MEDS: HYDROcodone-ACET 5/325MG TAB PO PRN (10:31)
[2020-06-09] MEDS ORDERED: OMEP-260 PO (12:36)
[2020-06-09] MEDS ORDERED: CAR3125T PO (12:36)
[2020-06-09] MEDS ORDERED: DIVA1TAB58 PO (12:36)
[2020-06-09] MEDS ORDERED: TRAM50TA2 PO (12:37)
[2020-06-09] MEDS ORDERED: METF-372 PO (12:38)
[2020-06-09] MEDS ORDERED: BACL20TA PO (12:38)
[2020-06-09] MEDS ORDERED: GLIP10TA9 PO (12:39)
[2020-06-09] MEDS ORDERED: ATOR20TA50 PO (12:40)
[2020-06-09] MEDS ORDERED: PROC10TA2 PO (12:41)
[2020-06-09] MEDS ORDERED: NAP500T PO (12:42)
[2020-06-09] MEDS: MORPHINE SULF INJ 2 MG/ML SYRINGE 1ML IV PRN ×2 (13:25→17:45)
[2020-06-09 19:09] LABS: Ferritin 8.3 ng/mL (10-322)
[2020-06-09 22:30] VITALS: BP 153/84
[2020-06-10] MEDS: ACCU-CHEK COMFORT CURVE STRIP VI SCH ×4 (00:20→18:00)
[2020-06-10] MEDS: InsuLIN REG 1unit/0.01ml Soln (100units/ml) SC SCH ×4 (00:21→18:00)
[2020-06-10] MEDS ORDERED: diphenhdrAMINE HCL 25 MG CAP PO ONE (00:30)
[2020-06-10] MEDS: MORPHINE SULF INJ 2 MG/ML SYRINGE 1ML IV PRN ×2 (00:59→10:24)
[2020-06-10] MEDS ORDERED: INFLUENZA QUAD 2020-2021 0.5 ML SYRG IM ONE (03:45)
[2020-06-10] MEDS ORDERED: PNEUMOCOCCAL VACC POLYS 25 MCG/0.5 ML VIAL IM ONE (03:45)
[2020-06-10 05:00] VITALS: BP 98/51
[2020-06-10 05:59] LABS: Basophils # (auto) 0 10 ^3/uL (0-0.2); Eosinophils # (auto) 0.1 10 ^3/uL (0-0.8); Hemoglobin 8.1 g/dL (12.2-16.2); Lymphocytes # (auto) 1.9 10 ^3/uL (0.4-5.4); Platelet Count (auto) 335 10^3/uL (140-450); Red Cell Distribution Width 14.2 % (11.8-14.3); White Blood Cell 6.1 10^3/uL (4.4-10.8)
[2020-06-10 06:02] LABS: Basophils % (auto) 0.4 % (0.0-2.0); Eosinophils % (auto) 2.4 % (0.0-7.0); Lymphocytes % (auto) 30.6 % (10.0-50.0); Mean Corpuscular Hemoglobin 27.8 pg (28.0-32.0); Mean Corpuscular Hgb Conc. 33.7 g/dL (32.0-36.0); Mean Corpuscular Volume 82.7 fL (80.0-100.0); Monocytes # (auto) 0.5 10 ^3/uL (0-1.3); Monocytes % (auto) 8.7 % (0.0-12.0); Neutrophils # (auto) 3.5 10 ^3/uL (1.6-8.6); Neutrophils % (auto) 57.9 % (37.0-80.0); Nucleated Red Blood Cells % 0.1 %; Red Blood Cells 2.91 10^6/uL (4.0-5.20)
[2020-06-10 06:26] LABS: Albumin 2.8 g/dL (3.4-5.0); Potassium 4.1 mmol/L (3.5-5.1)
[2020-06-10 06:30] LABS: BUN/Creatinine Ratio 16.7; Bilirubin, Total 0.3 mg/dL (0.2-1.0); Total Protein 5.3 g/dL (6.4-8.2)
[2020-06-10] MEDS: SODIUM CHLORIDE 0.9% 1,000 ML IV SCH (07:40)
[2020-06-10 08:14] VITALS: BP 103/61
[2020-06-10 08:24] VITALS: BP 104/64
[2020-06-10] MEDS: FAMOTIDINE 20 MG TAB PO SCH (10:37)
[2020-06-10] MEDS: levoFLOXacin 500MG 100 ML IV SCH (10:37)
[2020-06-10] MEDS: ENOXAPARIN SOD 40 MG/0.4 ML SYRINGE SC SCH (10:37)
[2020-06-10] MEDS: HYDROcodone-ACET 5/325MG TAB PO PRN (13:01)
[2020-06-10 14:18] VITALS: BP 108/68
[2020-06-10 16:00] VITALS: BP 107/53
== END 2020-06-10 18:30 | disposition home or self-care (01) | DRG 552 ==
LOC: EDBD 18:04 → ER 18:04 → TELE 06-09 04:52 → CENTRAL 06-09 21:02
PROVIDERS: ADMIT Nurse Practitioner; ATTEND Internal Medicine
DX: M51.37 Other intervertebral disc degeneration, lumbosacral region (principal); F11.20 Opioid dependence, uncomplicated; M54.9 Dorsalgia, unspecified; E11.65 Type 2 diabetes mellitus with hyperglycemia; M50.30 Other cervical disc degeneration, unspecified cervical region; E78.5 Hyperlipidemia, unspecified; F17.210 Nicotine dependence, cigarettes, uncomplicated; F20.9 Schizophrenia, unspecified; I11.0 Hypertensive heart disease with heart failure; I50.9 Heart failure, unspecified; J44.9 Chronic obstructive pulmonary disease, unspecified; K21.9 Gastro-esophageal reflux disease without esophagitis; M51.34 Other intervertebral disc degeneration, thoracic region; M62.838 Other muscle spasm; I25.10 Atherosclerotic heart disease of native coronary artery without angina pectoris; Z20.822 Contact with and (suspected) exposure to COVID-19; R07.9 Chest pain, unspecified; F32.9 Major depressive disorder, single episode, unspecified; F41.9 Anxiety disorder, unspecified; Z90.49 Acquired absence of other specified parts of digestive tract; Z88.1 Allergy status to other antibiotic agents; Z88.0 Allergy status to penicillin; Z82.3 Family history of stroke; Z82.49 Family history of ischemic heart disease and other diseases of the circulatory system; Z83.3 Family history of diabetes mellitus; Z85.43 Personal history of malignant neoplasm of ovary; Z87.442 Personal history of urinary calculi; Z90.710 Acquired absence of both cervix and uterus; Z88.8 Allergy status to other drugs, medicaments and biological substances
CPT/HCPCS: 36415; 71275; 72125; 72128; 72131; 74176; 80053; 80307; 81001; 82550; 82607; 82728; 82962; 83021; 83540; 83550; 83615; 83690; 83735; 83880; 84484; 85025; 85045; 85379; 85610; 85660; 86141; 86304; 86850; 86880; 86900; 86901; 87086; 87426; 96361; 96374; 96375; 97163; G0378; J1815; J1885; J1956; J2405

== ENCOUNTER → 2020-06-16 | Outpatient (CLI) | payer MEDICARE ==
[~2020-06-16] MED LIST changes: +ATOR20TA50 PO; +BACL20TA PO; +CAR3125T PO; -CARI-277 PO; -CARV6.2551 PO; +DIVA1TAB58 PO; -DIVA500T13 PO; -GABA300C10 PO; +GLIP10TA9 PO; +METF-372 PO; +NAP500T PO; -NOR10T PO; +OMEP-260 PO; -OMEP20CA74 PO; +PROC10TA2 PO; +TRAM50TA2 PO
[2020-06-16 15:18] LABS: Basophils # (auto) 0 10 ^3/uL (0-0.2); Eosinophils # (auto) 0.1 10 ^3/uL (0-0.8); Eosinophils % (auto) 1.1 % (0.0-7.0); Hemoglobin 9.2 g/dL (12.2-16.2); Monocytes # (auto) 0.5 10 ^3/uL (0-1.3); Neutrophils # (auto) 3.9 10 ^3/uL (1.6-8.6); Red Blood Cells 3.62 10^6/uL (4.0-5.20)
[2020-06-16 15:19] LABS: Basophils % (auto) 0.5 % (0.0-2.0); Hematocrit 29.1 % (36.0-46.0); Lymphocytes # (auto) 1.9 10 ^3/uL (0.4-5.4); Lymphocytes % (auto) 29.5 % (10.0-50.0); Mean Corpuscular Hemoglobin 25.4 pg (28.0-32.0); Mean Corpuscular Hgb Conc. 31.7 g/dL (32.0-36.0); Mean Corpuscular Volume 80.4 fL (80.0-100.0); Monocytes % (auto) 8.5 % (0.0-12.0); Neutrophils % (auto) 60.4 % (37.0-80.0); Nucleated Red Blood Cells % 0.1 %; White Blood Cell 6.4 10^3/uL (4.4-10.8)
[2020-06-16 15:21] LABS: Urine Blood Negative /uL (Negative); Urine Specific Gravity 1.009 (1.001-1.035)
[2020-06-16 15:29] LABS: Albumin 3.5 g/dL (3.4-5.0)
[2020-06-16 15:36] LABS: BUN/Creatinine Ratio 9.1; Bilirubin, Direct 0.2 mg/dL (0-0.2); Bilirubin, Total 0.5 mg/dL (0.2-1.0); Calcium 8.8 mg/dL (8.5-10.1); Total Protein 6.7 g/dL (6.4-8.2)
== END | disposition home or self-care (01) ==
LOC: LAB 13:05
PROVIDERS: ATTEND Internal Medicine Cardiovascular Disease
DX: D51.3 Other dietary vitamin B12 deficiency anemia (principal); I10 Essential (primary) hypertension; E11.9 Type 2 diabetes mellitus without complications; E55.9 Vitamin D deficiency, unspecified; R00.2 Palpitations; R53.1 Weakness; R30.0 Dysuria
CPT/HCPCS: 36415; 80048; 80061; 80076; 81003; 82306; 83021; 83036; 84443; 85025; 85660

== ENCOUNTER → 2020-06-22 | Outpatient (CLI) | payer MEDICARE | END | disposition home or self-care (01) | LOC: Rad HDHVI 10:43 | PROVIDERS: ATTEND Internal Medicine Cardiovascular Disease | DX: I11.9 Hypertensive heart disease without heart failure (principal); E78.2 Mixed hyperlipidemia | CPT/HCPCS: 93306 ==

== ENCOUNTER → 2020-07-06 | Outpatient (CLI) | payer MEDICARE ==
[~2020-07-06] VITALS: Ht 162.6 cm; Wt 84.4 kg
[~2020-07-06] MED LIST changes: +ADENOSINE 71 MG in GIVE UN-DILUTED 0 ML IV ONE; +ADENOSINE 90 MG/30 ML INJ IV ONE
== END | disposition home or self-care (01) ==
LOC: Rad HDHVI 08:41
PROVIDERS: ATTEND Internal Medicine Cardiovascular Disease
DX: I25.10 Atherosclerotic heart disease of native coronary artery without angina pectoris (principal); R07.89 Other chest pain; E11.9 Type 2 diabetes mellitus without complications; I25.2 Old myocardial infarction; Z95.0 Presence of cardiac pacemaker; Z95.1 Presence of aortocoronary bypass graft; Z82.49 Family history of ischemic heart disease and other diseases of the circulatory system
CPT/HCPCS: 78452; 82962; 93005; 96374; 96375; A9500; J0153

== ENCOUNTER 2021-03-30 17:10 | Inpatient (IN) | payer MEDICARE ==
[~2021-03-30] VITALS: Ht 162.6 cm; Wt 76.1 kg
[~2021-03-30 17:10] MED LIST changes: -ADENOSINE 71 MG in GIVE UN-DILUTED 0 ML IV ONE; -ADENOSINE 90 MG/30 ML INJ IV ONE
[2021-03-30 19:23] LABS: Basophils # (auto) 0 10 ^3/uL (0-0.2); Basophils % (auto) 0.5 % (0.0-2.0); Eosinophils # (auto) 0.1 10 ^3/uL (0-0.8); Eosinophils % (auto) 1.4 % (0.0-7.0); Lymphocytes # (auto) 2.6 10 ^3/uL (0.4-5.4); Lymphocytes % (auto) 42.3 % (10.0-50.0); Mean Corpuscular Hemoglobin 26.8 pg (28.0-32.0); Mean Corpuscular Hgb Conc. 32.5 g/dL (32.0-36.0); Mean Corpuscular Volume 82.4 fL (80.0-100.0); Monocytes # (auto) 0.5 10 ^3/uL (0-1.3); Monocytes % (auto) 7.5 % (0.0-12.0); Neutrophils % (auto) 48.3 % (37.0-80.0); Nucleated Red Blood Cells % 0.1 %; Red Blood Cells 4.49 10^6/uL (4.0-5.20); Red Cell Distribution Width 15.9 % (11.8-14.3); White Blood Cell 6.2 10^3/uL (4.4-10.8)
[2021-03-30 19:47] LABS: Albumin 2.9 g/dL (3.4-5.0); BUN/Creatinine Ratio 19.7; Calcium 8.9 mg/dL (8.5-10.1); Magnesium 1.6 mg/dL (1.6-2.6); Potassium 3.9 mmol/L (3.5-5.1)
[2021-03-30 19:49] LABS: Bilirubin, Total 0.3 mg/dL (0.2-1.0); Total Protein 6.8 g/dL (6.4-8.2)
[2021-03-31 03:09] LABS: Urine Bacteria NONE SEEN /hpf (None Seen); Urine Blood 1+ /uL (Negative); Urine Hyaline Cast FEW /lpf (0 - 2); Urine Mucus FEW (None Seen); Urine Specific Gravity 1.015 (1.001-1.035); Urine WBC 1091 /hpf (0 - 5); Urine WBC Clumps PRESENT /hpf (None Seen)
[2021-03-31] MEDS ORDERED: SODIUM CHLORIDE 0.9% 1,000 ML IV ONE (05:45)
[2021-03-31] MEDS ORDERED: levoFLOXacin 750MG 150 ML IV ONE (05:45)
[2021-03-31] MEDS ORDERED: PANTOPRAZOLE 40 MG/10 ML VIAL INJ IV ONE (05:45)
[2021-03-31] MEDS ORDERED: ONDANSETRON HCL 4 MG/2 ML VIAL IV ONE (05:45)
[2021-03-31] MEDS ORDERED: DEXTROSE (50%) 50ML SYRG IV PRN (06:00)
[2021-03-31] MEDS ORDERED: TEMAZEPAM 15 MG CAP PO PRN (06:00)
[2021-03-31] MEDS ORDERED: ACETAMINOPHEN 325 MG TAB PO PRN (06:00)
[2021-03-31] MEDS: ACCU-CHEK COMFORT CURVE STRIP VI SCH ×4 (06:51→22:00)
[2021-03-31] MEDS: InsuLIN REG 1unit/0.01ml Soln (100units/ml) SC SCH ×4 (06:55→22:00)
[2021-03-31] MEDS: HYDROcodone-ACET 5/325MG TAB PO PRN ×3 (07:34→21:48)
[2021-03-31] MEDS ORDERED: PANTOPRAZOLE 40 MG TAB PO SCH (10:00)
[2021-03-31 10:46] LABS: INR 1.03 (0.9-1.15)
[2021-03-31] MEDS: CARVEDILOL 3.125 MG TAB PO SCH ×2 (11:40→21:47)
[2021-03-31 13:14] LABS: Hepatitis A Ab IgM Negative
[2021-03-31 13:15] LABS: Hepatitis B Core IgM Negative
[2021-03-31 13:31] LABS: Hepatitis C Antibody Negative (Negative)
[2021-03-31 20:45] VITALS: BP 116/69
[2021-03-31] MEDS ORDERED: INFLUENZA QUAD 2021-2022 0.5 ML SYRG IM ONE (21:15)
[2021-03-31] MEDS ORDERED: PNEUMOCOCCAL VACC POLYS 25 MCG/0.5 ML VIAL IM ONE (21:15)
[2021-03-31] MEDS: PANTOPRAZOLE 40 MG TAB PO SCH (21:47)
[2021-03-31 22:00] VITALS: BP 116/69
[2021-04-01 05:00] VITALS: BP 110/56
[2021-04-01 06:15] LABS: Basophils # (auto) 0 10 ^3/uL (0-0.2); Basophils % (auto) 0.4 % (0.0-2.0); Eosinophils # (auto) 0.1 10 ^3/uL (0-0.8); Eosinophils % (auto) 1.8 % (0.0-7.0); Hematocrit 35.5 % (36.0-46.0); Hemoglobin 11.6 g/dL (12.2-16.2); Lymphocytes # (auto) 3.2 10 ^3/uL (0.4-5.4); Lymphocytes % (auto) 52.2 % (10.0-50.0); Mean Corpuscular Hemoglobin 27.3 pg (28.0-32.0); Mean Corpuscular Hgb Conc. 32.7 g/dL (32.0-36.0); Mean Corpuscular Volume 83.5 fL (80.0-100.0); Monocytes # (auto) 0.4 10 ^3/uL (0-1.3); Neutrophils # (auto) 2.3 10 ^3/uL (1.6-8.6); Neutrophils % (auto) 38.6 % (37.0-80.0); Nucleated Red Blood Cells % 0.1 %; Red Blood Cells 4.25 10^6/uL (4.0-5.20); Red Cell Distribution Width 15.5 % (11.8-14.3)
[2021-04-01] MEDS: ACCU-CHEK COMFORT CURVE STRIP VI SCH ×4 (06:42→22:25)
[2021-04-01] MEDS: InsuLIN REG 1unit/0.01ml Soln (100units/ml) SC SCH ×4 (06:42→22:25)
[2021-04-01 07:10] LABS: Potassium 3.8 mmol/L (3.5-5.1)
[2021-04-01 07:48] LABS: Albumin 2.8 g/dL (3.4-5.0); BUN/Creatinine Ratio 14.9; Bilirubin, Total 0.8 mg/dL (0.2-1.0); Calcium 8.8 mg/dL (8.5-10.1)
[2021-04-01 08:39] VITALS: BP 122/62
[2021-04-01] MEDS ORDERED: levoFLOXacin 500MG 100 ML IV SCH (10:00)
[2021-04-01] MEDS: CARVEDILOL 3.125 MG TAB PO SCH ×2 (10:13→22:24)
[2021-04-01] MEDS: PANTOPRAZOLE 40 MG TAB PO SCH ×2 (10:14→22:24)
[2021-04-01] MEDS: HYDROcodone-ACET 5/325MG TAB PO PRN (12:18)
[2021-04-01 12:38] VITALS: BP 122/76
[2021-04-01] MEDS ORDERED: IBUPROFEN 400 MG TAB PO ONE (12:45)
[2021-04-01] MEDS ORDERED: levoFLOXacin 250MG 50 ML IV ONE (13:00)
[2021-04-01] MEDS: HYDROmorphone HCL 2 MG/ML VL IV PRN ×2 (15:08→22:26)
[2021-04-01] MEDS ORDERED: KETOROLAC TROMETH 30 MG/ML 1ML VIAL IV PRN (16:00)
[2021-04-01 16:40] VITALS: BP 109/57
[2021-04-01 21:30] VITALS: BP 119/70
[2021-04-01] MEDS: ONDANSETRON HCL 4 MG/2 ML VIAL IV PRN (23:21)
[2021-04-02 05:00] VITALS: BP 118/62
[2021-04-02] MEDS: InsuLIN REG 1unit/0.01ml Soln (100units/ml) SC SCH ×4 (06:37→22:00)
[2021-04-02 06:51] LABS: Basophils # (auto) 0 10 ^3/uL (0-0.2); Basophils % (auto) 0.3 % (0.0-2.0); Eosinophils # (auto) 0 10 ^3/uL (0-0.8); Eosinophils % (auto) 0.1 % (0.0-7.0); Hematocrit 36.9 % (36.0-46.0); Lymphocytes # (auto) 1.8 10 ^3/uL (0.4-5.4); Lymphocytes % (auto) 25.1 % (10.0-50.0); Mean Corpuscular Hemoglobin 27.2 pg (28.0-32.0); Mean Corpuscular Hgb Conc. 32.6 g/dL (32.0-36.0); Mean Corpuscular Volume 83.4 fL (80.0-100.0); Monocytes # (auto) 0.3 10 ^3/uL (0-1.3); Monocytes % (auto) 4.3 % (0.0-12.0); Neutrophils % (auto) 70.2 % (37.0-80.0); Red Blood Cells 4.42 10^6/uL (4.0-5.20); Red Cell Distribution Width 15.6 % (11.8-14.3); White Blood Cell 7.1 10^3/uL (4.4-10.8)
[2021-04-02] MEDS: ACCU-CHEK COMFORT CURVE STRIP VI SCH ×4 (07:00→22:00)
[2021-04-02 07:03] LABS: Albumin 2.9 g/dL (3.4-5.0); Calcium 8.9 mg/dL (8.5-10.1); Potassium 4.5 mmol/L (3.5-5.1)
[2021-04-02 07:06] LABS: BUN/Creatinine Ratio 19.2
[2021-04-02 07:08] LABS: Bilirubin, Total 0.6 mg/dL (0.2-1.0); Total Protein 6.2 g/dL (6.4-8.2)
[2021-04-02] MEDS: HYDROmorphone HCL 2 MG/ML VL IV PRN ×3 (08:11→22:52)
[2021-04-02] MEDS: ONDANSETRON HCL 4 MG/2 ML VIAL IV PRN ×3 (08:12→22:52)
[2021-04-02 09:00] VITALS: BP 108/61
[2021-04-02] MEDS ORDERED: levoFLOXacin 750MG 150 ML IV SCH (10:00)
[2021-04-02] MEDS: CARVEDILOL 3.125 MG TAB PO SCH ×2 (10:00→21:57)
[2021-04-02] MEDS: PANTOPRAZOLE 40 MG TAB PO SCH ×2 (10:17→22:04)
[2021-04-02] MEDS ORDERED: OXYCODONE W/ ACETAMINOPHEN 5/325MG TABLET PO ONE (14:30)
[2021-04-02] MEDS ORDERED: VANCOMYCIN PER PHARMACY 0 MG IV SCH (15:00)
[2021-04-02] MEDS ORDERED: DEXTROSE (50%) 50ML SYRG IV PRN (15:00)
[2021-04-02] MEDS: VANCOMYCIN 750mg/250ml 250 ML IV SCH (15:54)
[2021-04-02 16:49] VITALS: BP 94/48
[2021-04-02 22:00] VITALS: BP 97/50
[2021-04-03] MEDS: VANCOMYCIN 750mg/250ml 250 ML IV SCH ×2 (04:00→16:30)
[2021-04-03 04:58] LABS: Basophils # (auto) 0 10 ^3/uL (0-0.2); Basophils % (auto) 0.2 % (0.0-2.0); Eosinophils # (auto) 0 10 ^3/uL (0-0.8); Eosinophils % (auto) 0.7 % (0.0-7.0); Hematocrit 34.4 % (36.0-46.0); Hemoglobin 11.4 g/dL (12.2-16.2); Lymphocytes # (auto) 2.3 10 ^3/uL (0.4-5.4); Lymphocytes % (auto) 36.2 % (10.0-50.0); Mean Corpuscular Hemoglobin 27.7 pg (28.0-32.0); Mean Corpuscular Hgb Conc. 33.2 g/dL (32.0-36.0); Mean Corpuscular Volume 83.4 fL (80.0-100.0); Monocytes # (auto) 0.5 10 ^3/uL (0-1.3); Monocytes % (auto) 7.3 % (0.0-12.0); Neutrophils # (auto) 3.5 10 ^3/uL (1.6-8.6); Neutrophils % (auto) 55.6 % (37.0-80.0); Nucleated Red Blood Cells % 0.1 %; Red Blood Cells 4.12 10^6/uL (4.0-5.20); Red Cell Distribution Width 15.5 % (11.8-14.3); White Blood Cell 6.4 10^3/uL (4.4-10.8)
[2021-04-03 05:00] VITALS: BP 110/64
[2021-04-03 05:14] LABS: BUN/Creatinine Ratio 14.6; Calcium 8.6 mg/dL (8.5-10.1); Magnesium 1.8 mg/dL (1.6-2.6); Potassium 4.2 mmol/L (3.5-5.1)
[2021-04-03] MEDS: InsuLIN REG 1unit/0.01ml Soln (100units/ml) SC SCH ×4 (05:44→23:21)
[2021-04-03] MEDS: ACCU-CHEK COMFORT CURVE STRIP VI SCH ×4 (05:45→23:07)
[2021-04-03 08:48] VITALS: BP 107/73
[2021-04-03] MEDS: ONDANSETRON HCL 4 MG/2 ML VIAL IV PRN ×3 (08:59→17:22)
[2021-04-03] MEDS: HYDROmorphone HCL 2 MG/ML VL IV PRN ×5 (09:00→23:18)
[2021-04-03] MEDS: CARVEDILOL 3.125 MG TAB PO SCH ×2 (09:33→23:20)
[2021-04-03] MEDS: PANTOPRAZOLE 40 MG TAB PO SCH ×2 (09:33→23:19)
[2021-04-03 13:00] VITALS: BP 115/60
[2021-04-03] MEDS ORDERED: IBUPROFEN 800 MG TAB PO ONE (15:00)
[2021-04-03 17:18] VITALS: BP 118/63
[2021-04-03 22:00] VITALS: BP 121/67
[2021-04-04] MEDS ORDERED: VANCOMYCIN 750mg/250ml 250 ML IV SCH (04:00)
[2021-04-04 05:00] VITALS: BP 110/57
[2021-04-04] MEDS: InsuLIN REG 1unit/0.01ml Soln (100units/ml) SC SCH ×3 (06:25→17:27)
[2021-04-04] MEDS: ACCU-CHEK COMFORT CURVE STRIP VI SCH ×3 (06:27→17:28)
[2021-04-04 09:00] VITALS: BP 112/66
[2021-04-04] MEDS: HYDROmorphone HCL 2 MG/ML VL IV PRN (10:27)
[2021-04-04] MEDS: PANTOPRAZOLE 40 MG TAB PO SCH (10:27)
[2021-04-04] MEDS: CARVEDILOL 3.125 MG TAB PO SCH (10:29)
[2021-04-04] MEDS ORDERED: LINE1TAB5 PO (10:44)
[2021-04-04 13:00] VITALS: BP 101/57
[2021-04-04 17:01] VITALS: BP 95/58
[2021-04-04] MEDS ORDERED: ERGO1CAP23 PO (22:10)
== END 2021-04-04 18:50 | disposition home health service (06) | DRG 690 ==
LOC: EDBD 17:10 → ER 17:10 → OVERFLOW 03-31 05:56 → WEST WING 03-31 19:35
PROVIDERS: ADMIT Nurse Practitioner; ATTEND Internal Medicine
DX: N10 Acute pyelonephritis (principal); K92.0 Hematemesis; E44.0 Moderate protein-calorie malnutrition; E66.9 Obesity, unspecified; E11.9 Type 2 diabetes mellitus without complications; I10 Essential (primary) hypertension; E78.5 Hyperlipidemia, unspecified; F17.210 Nicotine dependence, cigarettes, uncomplicated; F20.9 Schizophrenia, unspecified; F41.9 Anxiety disorder, unspecified; I25.10 Atherosclerotic heart disease of native coronary artery without angina pectoris; F32.A Depression, unspecified; R79.89 Other specified abnormal findings of blood chemistry; Z20.822 Contact with and (suspected) exposure to COVID-19; J44.9 Chronic obstructive pulmonary disease, unspecified; Z82.3 Family history of stroke; Z82.49 Family history of ischemic heart disease and other diseases of the circulatory system; Z83.3 Family history of diabetes mellitus; Z87.442 Personal history of urinary calculi; Z88.0 Allergy status to penicillin; Z90.710 Acquired absence of both cervix and uterus; Z88.1 Allergy status to other antibiotic agents; I25.2 Old myocardial infarction; Z68.28 Body mass index [BMI] 28.0-28.9, adult; K21.9 Gastro-esophageal reflux disease without esophagitis
CPT/HCPCS: 36415; 71045; 74176; 76705; 76775; 80048; 80053; 80074; 80202; 81001; 82150; 82306; 82565; 82962; 83036; 83605; 83690; 83735; 85025; 85610; 87040; 87086; 87426; 93005; 96361; 96365; 96375; C9113; G0378; J1815; J1885; J1956; J2405

== ENCOUNTER 2021-04-18 21:49 | Emergency (ER) | payer MEDICARE ==
[~2021-04-18] VITALS: Ht 160 cm; Wt 86.2 kg
[~2021-04-18 21:49] MED LIST changes: +ERGO1CAP23 PO; +LINE1TAB5 PO
[2021-04-18 22:39] LABS: Basophils # (auto) 0 10 ^3/uL (0-0.2); Eosinophils # (auto) 0.1 10 ^3/uL (0-0.8); Lymphocytes # (auto) 2.4 10 ^3/uL (0.4-5.4); Red Blood Cells 4.57 10^6/uL (4.0-5.20)
[2021-04-18 22:40] LABS: Basophils % (auto) 0.3 % (0.0-2.0); Eosinophils % (auto) 1.5 % (0.0-7.0); Hematocrit 37.7 % (36.0-46.0); Lymphocytes % (auto) 30.2 % (10.0-50.0); Mean Corpuscular Hemoglobin 26.2 pg (28.0-32.0); Mean Corpuscular Hgb Conc. 31.8 g/dL (32.0-36.0); Mean Corpuscular Volume 82.5 fL (80.0-100.0); Monocytes # (auto) 0.5 10 ^3/uL (0-1.3); Monocytes % (auto) 6.2 % (0.0-12.0); Neutrophils # (auto) 4.8 10 ^3/uL (1.6-8.6); Neutrophils % (auto) 61.8 % (37.0-80.0); White Blood Cell 7.8 10^3/uL (4.4-10.8)
[2021-04-18 22:58] LABS: Albumin 3.3 g/dL (3.4-5.0); Calcium 8.4 mg/dL (8.5-10.1); Potassium 3.8 mmol/L (3.5-5.1)
[2021-04-18 23:03] LABS: Bilirubin, Total 0.3 mg/dL (0.2-1.0)
[2021-04-19 00:02] LABS: BUN/Creatinine Ratio 10.1
[2021-04-19] MEDS ORDERED: KETOROLAC TROMETH 30 MG/ML 1ML VIAL IV ONE (03:30)
[2021-04-19 10:34] VITALS: BP 140/68
== END 2021-04-19 11:13 | disposition home or self-care (01) ==
LOC: EDBD 21:49 → EDUNIT# 21:49 → ER 21:52
DX: R07.89 Other chest pain (principal); F17.210 Nicotine dependence, cigarettes, uncomplicated; J44.9 Chronic obstructive pulmonary disease, unspecified; K21.9 Gastro-esophageal reflux disease without esophagitis; E11.9 Type 2 diabetes mellitus without complications; E78.5 Hyperlipidemia, unspecified; Z90.710 Acquired absence of both cervix and uterus; Z87.442 Personal history of urinary calculi
CPT/HCPCS: 36415; 71045; 80053; 83880; 84484; 85025; 93005; 96374; 99285; J1885

== ENCOUNTER 2021-10-31 00:33 | Inpatient (IN) | payer MEDICARE, MEDICAID ==
[~2021-10-31] VITALS: Ht 157.5 cm; Wt 63.0 kg
[2021-10-31 01:36] LABS: Basophils # (auto) 0.1 10 ^3/uL (0-0.2); Basophils % (auto) 1.4 % (0.0-2.0); Eosinophils # (auto) 0.1 10 ^3/uL (0-0.8); Eosinophils % (auto) 1.4 % (0.0-7.0); Hematocrit 34.3 % (36.0-46.0); Hemoglobin 11.1 g/dL (12.2-16.2); Lymphocytes # (auto) 3.2 10 ^3/uL (0.4-5.4); Lymphocytes % (auto) 39.4 % (10.0-50.0); Mean Corpuscular Hgb Conc. 32.3 g/dL (32.0-36.0); Mean Corpuscular Volume 71.2 fL (80.0-100.0); Monocytes # (auto) 0.5 10 ^3/uL (0-1.3); Monocytes % (auto) 6.5 % (0.0-12.0); Neutrophils # (auto) 4.2 10 ^3/uL (1.6-8.6); Neutrophils % (auto) 51.3 % (37.0-80.0); Nucleated Red Blood Cells % 0.1 %; Red Blood Cells 4.82 10^6/uL (4.0-5.20); Red Cell Distribution Width 17.9 % (11.8-14.3); White Blood Cell 8.1 10^3/uL (4.4-10.8)
[2021-10-31 01:50] LABS: INR 0.99 (0.9-1.15); Partial Thromboplastin Time 26.5 sec (23.6-33.0)
[2021-10-31 01:53] LABS: Albumin 3.5 g/dL (3.4-5.0); Calcium 9.2 mg/dL (8.5-10.1)
[2021-10-31 01:58] LABS: BUN/Creatinine Ratio 11.1; Bilirubin, Total 0.3 mg/dL (0.2-1.0); Total Protein 6.6 g/dL (6.4-8.2)
[2021-10-31] MEDS ORDERED: IOHEXOL 300 MG/ML 100ML BOTTLE IJ ONE (05:39)
[2021-10-31] MEDS ORDERED: MORPHINE SULFATE 4 MG/ML SYR/VIAL IV ONE (06:15)
[2021-10-31] MEDS ORDERED: ONDANSETRON HCL 4 MG/2 ML VIAL IV ONE (06:15)
[2021-10-31] MEDS ORDERED: ONDANSETRON HCL 4 MG/2 ML VIAL IV PRN (11:45)
[2021-10-31] MEDS ORDERED: PANTOPRAZOLE 40 MG/10 ML VIAL INJ IV ONE (11:45)
[2021-10-31] MEDS ORDERED: DEXTROSE (50%) 50ML SYRG IV PRN (12:00)
[2021-10-31] MEDS: MORPHINE SULFATE INJ 2 MG/ml SYRG IV PRN ×2 (12:08→18:29)
[2021-10-31] MEDS: NICOTINE 7MG/24HR TOPICAL PATCH TD ONE ×2 (12:09→12:24)
[2021-10-31] MEDS ORDERED: AZITHROMYCIN 500MG/ 250ML 250 ML IV ONE (12:15)
[2021-10-31] MEDS: ACCU-CHEK COMFORT CURVE STRIP VI SCH ×2 (12:16→17:45)
[2021-10-31] MEDS: InsuLIN REG 1unit/0.01ml Soln (100units/ml) SC SCH ×2 (12:19→17:47)
[2021-10-31] MEDS: metroNIDAZOLE 500MG/100ML 100 ML IV SCH ×2 (14:29→22:08)
[2021-10-31] MEDS: SUCRALFATE 1 GM/10 ML ORAL SUSP PO SCH ×2 (17:08→22:08)
[2021-10-31] MEDS: HYDROcodone-ACET 5/325MG TAB PO PRN (21:30)
[2021-11-01] MEDS: MORPHINE SULFATE INJ 2 MG/ml SYRG IV PRN ×5 (00:20→20:39)
[2021-11-01] MEDS: ACCU-CHEK COMFORT CURVE STRIP VI SCH ×5 (01:05→23:47)
[2021-11-01] MEDS: InsuLIN REG 1unit/0.01ml Soln (100units/ml) SC SCH ×5 (01:11→23:54)
[2021-11-01 05:35] LABS: Basophils # (auto) 0 10 ^3/uL (0-0.2); Monocytes # (auto) 0.5 10 ^3/uL (0-1.3); Nucleated Red Blood Cells % 0.1 %
[2021-11-01 05:40] LABS: Basophils % (auto) 0.4 % (0.0-2.0); Eosinophils # (auto) 0.1 10 ^3/uL (0-0.8); Eosinophils % (auto) 2.1 % (0.0-7.0); Hematocrit 33.3 % (36.0-46.0); Hemoglobin 10.8 g/dL (12.2-16.2); Lymphocytes # (auto) 2.4 10 ^3/uL (0.4-5.4); Lymphocytes % (auto) 38.4 % (10.0-50.0); Mean Corpuscular Hemoglobin 22.9 pg (28.0-32.0); Mean Corpuscular Hgb Conc. 32.4 g/dL (32.0-36.0); Mean Corpuscular Volume 70.6 fL (80.0-100.0); Monocytes % (auto) 7.5 % (0.0-12.0); Neutrophils # (auto) 3.3 10 ^3/uL (1.6-8.6); Neutrophils % (auto) 51.6 % (37.0-80.0); Red Blood Cells 4.72 10^6/uL (4.0-5.20); Red Cell Distribution Width 17.6 % (11.8-14.3); White Blood Cell 6.4 10^3/uL (4.4-10.8)
[2021-11-01 06:00] LABS: Albumin 3.1 g/dL (3.4-5.0); BUN/Creatinine Ratio 18.9; Bilirubin, Total 0.4 mg/dL (0.2-1.0); Calcium 8.4 mg/dL (8.5-10.1)
[2021-11-01] MEDS: metroNIDAZOLE 500MG/100ML 100 ML IV SCH ×2 (06:09→13:49)
[2021-11-01] MEDS: SUCRALFATE 1 GM/10 ML ORAL SUSP PO SCH ×4 (06:21→21:18)
[2021-11-01] MEDS: NICOTINE 7MG/24HR TOPICAL PATCH TD SCH (10:00)
[2021-11-01 13:50] VITALS: BP 117/49
[2021-11-01] MEDS ORDERED: diphenhdrAMINE HCL 50 MG/1 ML VL IV ONE (14:15)
[2021-11-01] MEDS: HYDROcodone-ACET 5/325MG TAB PO PRN (18:20)
[2021-11-01] MEDS: PANTOPRAZOLE 40 MG/10 ML VIAL INJ IV SCH (21:17)
[2021-11-01] MEDS: ATORVASTATIN 20 MG TAB PO SCH (21:20)
[2021-11-01] MEDS: CARVEDILOL 3.125 MG TAB PO SCH (21:20)
[2021-11-01 22:00] VITALS: BP 120/63
[2021-11-01] MEDS ORDERED: diphenhdrAMINE HCL 25 MG CAP PO ONE (23:00)
[2021-11-02] MEDS: MORPHINE SULFATE INJ 2 MG/ml SYRG IV PRN ×5 (02:53→21:38)
[2021-11-02 05:00] VITALS: BP 112/51
[2021-11-02] MEDS: ACCU-CHEK COMFORT CURVE STRIP VI SCH ×3 (05:52→17:41)
[2021-11-02] MEDS: InsuLIN REG 1unit/0.01ml Soln (100units/ml) SC SCH ×3 (05:53→17:41)
[2021-11-02] MEDS: SUCRALFATE 1 GM/10 ML ORAL SUSP PO SCH ×5 (06:22→21:29)
[2021-11-02] MEDS ORDERED: MIDAZOLAM HCL 5 MG/ML-1ML VIAL ONE (08:14)
[2021-11-02] MEDS ORDERED: diphenhdrAMINE HCL 50 MG/1 ML VL ONE (08:14)
[2021-11-02] MEDS ORDERED: SODIUM CHLORIDE LOCK 10 ML ONE (08:14)
[2021-11-02] MEDS ORDERED: LIDOCAINE VISCOUS 2% 15ML UD ONE (08:14)
[2021-11-02] MEDS ORDERED: fentaNYL CITRATE 100 MCG/2 ML VL ONE (08:15)
[2021-11-02 09:00] VITALS: BP 115/53
[2021-11-02] MEDS ORDERED: SIMETHICONE 40 MG/0.6 ML ORAL DROP ONE (09:20)
[2021-11-02] MEDS: CARVEDILOL 3.125 MG TAB PO SCH ×2 (10:00→21:28)
[2021-11-02] MEDS: NICOTINE 7MG/24HR TOPICAL PATCH TD SCH (10:00)
[2021-11-02] MEDS: PANTOPRAZOLE 40 MG/10 ML VIAL INJ IV SCH ×2 (10:43→21:30)
[2021-11-02 12:43] VITALS: BP 109/60
[2021-11-02 16:48] VITALS: BP 114/65
[2021-11-02] MEDS: HYDROcodone-ACET 5/325MG TAB PO PRN (19:40)
[2021-11-02] MEDS: ATORVASTATIN 20 MG TAB PO SCH (21:29)
[2021-11-02 22:00] VITALS: BP 111/61
[2021-11-03] MEDS: ACCU-CHEK COMFORT CURVE STRIP VI SCH ×5 (00:26→23:59)
[2021-11-03] MEDS: InsuLIN REG 1unit/0.01ml Soln (100units/ml) SC SCH ×4 (00:28→17:06)
[2021-11-03] MEDS: MORPHINE SULFATE INJ 2 MG/ml SYRG IV PRN ×5 (03:00→23:56)
[2021-11-03 04:41] VITALS: BP 106/61
[2021-11-03 05:21] LABS: Basophils # (auto) 0 10 ^3/uL (0-0.2); Eosinophils # (auto) 0.1 10 ^3/uL (0-0.8); Eosinophils % (auto) 1.8 % (0.0-7.0); Mean Corpuscular Volume 71.6 fL (80.0-100.0); Monocytes # (auto) 0.4 10 ^3/uL (0-1.3); Neutrophils # (auto) 3.8 10 ^3/uL (1.6-8.6); Nucleated Red Blood Cells % 0.1 %; Red Blood Cells 4.84 10^6/uL (4.0-5.20)
[2021-11-03 05:25] LABS: Basophils % (auto) 0.4 % (0.0-2.0); Hematocrit 34.7 % (36.0-46.0); Lymphocytes # (auto) 2.7 10 ^3/uL (0.4-5.4); Lymphocytes % (auto) 38.4 % (10.0-50.0); Mean Corpuscular Hemoglobin 22.8 pg (28.0-32.0); Mean Corpuscular Hgb Conc. 31.8 g/dL (32.0-36.0); Monocytes % (auto) 6.1 % (0.0-12.0); Neutrophils % (auto) 53.3 % (37.0-80.0); Red Cell Distribution Width 17.5 % (11.8-14.3); White Blood Cell 7.1 10^3/uL (4.4-10.8)
[2021-11-03] MEDS: SUCRALFATE 1 GM/10 ML ORAL SUSP PO SCH ×4 (06:21→21:09)
[2021-11-03 09:00] VITALS: BP 124/64
[2021-11-03] MEDS: PANTOPRAZOLE 40 MG/10 ML VIAL INJ IV SCH ×2 (09:45→21:10)
[2021-11-03] MEDS: CARVEDILOL 3.125 MG TAB PO SCH ×2 (09:46→21:12)
[2021-11-03] MEDS: NICOTINE 7MG/24HR TOPICAL PATCH TD SCH (10:00)
[2021-11-03] MEDS ORDERED: diphenhdrAMINE HCL 25 MG CAP PO PRN (10:15)
[2021-11-03] MEDS ORDERED: diphenhdrAMINE HCL 50 MG/1 ML VL IM ONE (10:15)
[2021-11-03] MEDS ORDERED: ERGOCALCIFEROL 50,000 UNIT(1.25MG) CAP PO SCH (10:30)
[2021-11-03 13:00] VITALS: BP 117/65
[2021-11-03 16:26] VITALS: BP 131/68
[2021-11-03] MEDS: HYDROcodone-ACET 5/325MG TAB PO PRN (21:10)
[2021-11-03] MEDS: ATORVASTATIN 20 MG TAB PO SCH (21:11)
[2021-11-03 22:15] VITALS: BP 128/78
[2021-11-04 05:26] VITALS: BP 118/57
[2021-11-04 05:39] LABS: Basophils # (auto) 0 10 ^3/uL (0-0.2); Basophils % (auto) 0.4 % (0.0-2.0); Eosinophils # (auto) 0.1 10 ^3/uL (0-0.8); Hemoglobin 11.1 g/dL (12.2-16.2); Monocytes # (auto) 0.5 10 ^3/uL (0-1.3); Neutrophils # (auto) 4.8 10 ^3/uL (1.6-8.6)
[2021-11-04 05:40] LABS: Eosinophils % (auto) 1.3 % (0.0-7.0); Hematocrit 34.5 % (36.0-46.0); Lymphocytes # (auto) 2.9 10 ^3/uL (0.4-5.4); Lymphocytes % (auto) 34.6 % (10.0-50.0); Mean Corpuscular Hemoglobin 22.6 pg (28.0-32.0); Mean Corpuscular Volume 70.4 fL (80.0-100.0); Monocytes % (auto) 5.7 % (0.0-12.0); Nucleated Red Blood Cells % 0.1 %; White Blood Cell 8.3 10^3/uL (4.4-10.8)
[2021-11-04] MEDS: ACCU-CHEK COMFORT CURVE STRIP VI SCH ×3 (05:41→17:46)
[2021-11-04] MEDS: InsuLIN REG 1unit/0.01ml Soln (100units/ml) SC SCH ×4 (05:42→17:50)
[2021-11-04 05:57] LABS: Potassium 3.7 mmol/L (3.5-5.1)
[2021-11-04 06:03] LABS: BUN/Creatinine Ratio 22.2; Calcium 8.8 mg/dL (8.5-10.1)
[2021-11-04] MEDS: SUCRALFATE 1 GM/10 ML ORAL SUSP PO SCH ×3 (06:05→17:44)
[2021-11-04] MEDS: MORPHINE SULFATE INJ 2 MG/ml SYRG IV PRN ×3 (06:08→17:45)
[2021-11-04 08:00] VITALS: BP 123/77
[2021-11-04 09:00] VITALS: BP 123/77
[2021-11-04] MEDS: PANTOPRAZOLE 40 MG/10 ML VIAL INJ IV SCH (09:39)
[2021-11-04] MEDS: HYDROcodone-ACET 5/325MG TAB PO PRN (09:40)
[2021-11-04] MEDS: CARVEDILOL 3.125 MG TAB PO SCH (09:41)
[2021-11-04] MEDS: NICOTINE 7MG/24HR TOPICAL PATCH TD SCH (10:00)
[2021-11-04] MEDS ORDERED: CHOLECALCIFEROL (VITD3) 2,000 UNIT CAP/TAB PO SCH (10:00)
[2021-11-04] MEDS ORDERED: SUCR1TAB PO (10:19)
[2021-11-04] MEDS ORDERED: PANT40T PO (10:19)
[2021-11-04] MEDS ORDERED: CHOLCAP11 PO (10:19)
[2021-11-04] MEDS ORDERED: DOXY-286 PO (10:19)
[2021-11-04 12:45] VITALS: BP 106/66
[2021-11-04 17:00] VITALS: BP 104/61
[2021-11-04 17:45] VITALS: BP 128/74
== END 2021-11-04 20:00 | DRG 377 ==
LOC: ER 00:33 → EDBD 00:33 → TELE 11:31 → TELE-WESTW 11-01 08:46
PROVIDERS: ADMIT Registered Nurse; ATTEND Family Medicine
PROC: 0DB68ZX Excision of Stomach, Via Natural or Artificial Opening Endoscopic, Diagnostic (ICD-10-PCS; principal; 2021-11-02 09:17)
DX: K29.71 Gastritis, unspecified, with bleeding (principal); I50.23 Acute on chronic systolic (congestive) heart failure; D62 Acute posthemorrhagic anemia; N39.0 Urinary tract infection, site not specified; J44.1 Chronic obstructive pulmonary disease with (acute) exacerbation; F17.210 Nicotine dependence, cigarettes, uncomplicated; F20.9 Schizophrenia, unspecified; K44.9 Diaphragmatic hernia without obstruction or gangrene; E03.9 Hypothyroidism, unspecified; E11.21 Type 2 diabetes mellitus with diabetic nephropathy; E11.40 Type 2 diabetes mellitus with diabetic neuropathy, unspecified; J32.1 Chronic frontal sinusitis; E55.9 Vitamin D deficiency, unspecified; Z20.822 Contact with and (suspected) exposure to COVID-19; E78.5 Hyperlipidemia, unspecified; I11.0 Hypertensive heart disease with heart failure; F32.A Depression, unspecified; F41.9 Anxiety disorder, unspecified; I25.10 Atherosclerotic heart disease of native coronary artery without angina pectoris; K21.9 Gastro-esophageal reflux disease without esophagitis; Z87.442 Personal history of urinary calculi; Z88.1 Allergy status to other antibiotic agents; Z88.0 Allergy status to penicillin; Z90.710 Acquired absence of both cervix and uterus; Z95.5 Presence of coronary angioplasty implant and graft; Z90.49 Acquired absence of other specified parts of digestive tract; Z71.6 Tobacco abuse counseling; Z79.84 Long term (current) use of oral hypoglycemic drugs
CPT/HCPCS: 36415; 43239; 70486; 71046; 74177; 80048; 80053; 82306; 82962; 83021; 83036; 83880; 84439; 84443; 84484; 85025; 85610; 85660; 85730; 87081; 93005; 96374; 96375; 96376; 97163; C9113; G0378; J1815; J2250; J2405; J3490

== ENCOUNTER → 2023-09-27 | Outpatient (CLI) | payer MEDICARE, MEDICAID ==
[~2023-09-27] MED LIST changes: -CAR3125T PO; +CARV-214 PO; -OMEP-260 PO; +OMEP1CAP70 PO; -PROC10TA2 PO; +PROC10TA6 PO
[2023-09-27 07:24] LABS: Urine Bacteria None Seen /hpf (None Seen); Urine WBC None Seen /hpf (0 - 5)
[2023-09-27 07:42] LABS: Basophils # (auto) 0 10 ^3/uL (0-0.2); Basophils % (auto) 0.2 % (0.0-2.0); Eosinophils # (auto) 0.2 10 ^3/uL (0-0.8); Hemoglobin 10.9 g/dL (12.2-16.2); Lymphocytes # (auto) 2.9 10 ^3/uL (0.4-5.4); Mean Corpuscular Hemoglobin 20.8 pg (28.0-32.0); Mean Corpuscular Hgb Conc. 31.3 g/dL (32.0-36.0); Monocytes % (auto) 8.5 % (0.0-12.0)
[2023-09-27 07:43] LABS: Eosinophils % (auto) 2.1 % (0.0-7.0); Hematocrit 34.8 % (36.0-46.0); Lymphocytes % (auto) 29.2 % (10.0-50.0); Mean Corpuscular Volume 66.3 fL (80.0-100.0); Monocytes # (auto) 0.8 10 ^3/uL (0-1.3); Neutrophils # (auto) 5.9 10 ^3/uL (1.6-8.6); Red Blood Cells 5.25 10^6/uL (4.0-5.20); Red Cell Distribution Width 20.7 % (11.8-14.3); White Blood Cell 9.9 10^3/uL (4.4-10.8)
[2023-09-27 07:53] LABS: Urine Blood Negative /uL (Negative); Urine Clarity Clear (Clear); Urine Color Colorless (Yellow); Urine Protein, UAD Negative (Negative); Urine Specific Gravity 1.006 (1.001-1.035); Urine Urobilinogen Normal (Negative)
[2023-09-27 07:55] LABS: Anisocytosis Slight; Hypochromia Moderate; Platelet Estimate Adequate
[2023-09-27 08:11] LABS: Alanine Aminotransferase 32 U/L (7-40); Alkaline Phosphatase 100 U/L (46-116); Anion Gap 6 (5-15); Aspartate Aminotransferase 27 U/L (13-40); BUN/Creatinine Ratio 10.6 (10.0-20.0); Blood Urea Nitrogen 7 mg/dL (9-23); CRP High Sensitivity 0.06 mg/dL (<1.0); Carbon Dioxide 28 mmol/L (20-30); Chloride 107 mmol/L (98-107); Glucose 166 mg/dL (74-106); LDL Cholesterol 50 mg/dL (< 100); Potassium 3.7 mmol/L (3.5-5.1); Sodium 141 mmol/L (136-145); Triglycerides 150 mg/dL (< 150)
[2023-09-27 08:12] LABS: Albumin 4.1 g/dL (3.2-4.8); Bilirubin, Direct 0.2 mg/dL (<0.3); Bilirubin, Total 0.4 mg/dL (0.2-1.0); Cholesterol 112 mg/dL (< 200); HDL Cholesterol 46 mg/dL (40-59); Total Protein 6.3 g/dL (5.7-8.2)
[2023-09-27 08:50] LABS: Erythrocyte Sedimentation Rate 11 mm/hr (0-20)
== END | disposition home or self-care (01) ==
LOC: LAB 07:06
PROVIDERS: ATTEND Specialist
DX: E11.9 Type 2 diabetes mellitus without complications (principal); I11.0 Hypertensive heart disease with heart failure; R68.89 Other general symptoms and signs; E55.9 Vitamin D deficiency, unspecified; E03.9 Hypothyroidism, unspecified; D64.9 Anemia, unspecified; E78.5 Hyperlipidemia, unspecified; L40.50 Arthropathic psoriasis, unspecified; Z79.899 Other long term (current) drug therapy
CPT/HCPCS: 36415; 80053; 80061; 81001; 82248; 83880; 84443; 85025; 85652; 86141; 87086

== ENCOUNTER 2023-11-09 20:26 | Inpatient (IN) | payer MEDICARE, MEDICAID ==
[~2023-11-09] VITALS: Ht 162.6 cm; Wt 90.0 kg
[2023-11-09 21:11] LABS: Basophils # (auto) 0 10 ^3/uL (0-0.2); Basophils % (auto) 0.4 % (0.0-2.0); Eosinophils # (auto) 0.2 10 ^3/uL (0-0.8); Monocytes # (auto) 0.9 10 ^3/uL (0-1.3); Neutrophils # (auto) 5.2 10 ^3/uL (1.6-8.6)
[2023-11-09 21:13] LABS: Eosinophils % (auto) 1.6 % (0.0-7.0); Hematocrit 35.2 % (36.0-46.0); Hemoglobin 11.2 g/dL (12.2-16.2); Lymphocytes # (auto) 3.5 10 ^3/uL (0.4-5.4); Lymphocytes % (auto) 35.6 % (10.0-50.0); Mean Corpuscular Hemoglobin 20.7 pg (28.0-32.0); Mean Corpuscular Hgb Conc. 31.8 g/dL (32.0-36.0); Mean Corpuscular Volume 65.1 fL (80.0-100.0); Monocytes % (auto) 8.9 % (0.0-12.0); Neutrophils % (auto) 53.5 % (37.0-80.0); Nucleated Red Blood Cells % 0.1 %; Red Blood Cells 5.41 10^6/uL (4.0-5.20); White Blood Cell 9.8 10^3/uL (4.4-10.8)
[2023-11-09 21:17] LABS: Red Cell Distribution Width 21.2 % (11.8-14.3)
[2023-11-09 21:27] LABS: Partial Thromboplastin Time 26.7 SEC (24.5-34.5); Prothrombin Time 10.6 sec (9.3-11.8)
[2023-11-09 21:36] LABS: Alanine Aminotransferase 35 U/L (7-40); Albumin 4.1 g/dL (3.2-4.8); Alkaline Phosphatase 118 U/L (46-116); Anion Gap 6 (5-15); Aspartate Aminotransferase 26 U/L (13-40); BUN/Creatinine Ratio 11.8 (10.0-20.0); Bilirubin, Total 0.2 mg/dL (0.2-1.0); Blood Urea Nitrogen 9 mg/dL (9-23); Calcium 9.7 mg/dL (8.7-10.4); Carbon Dioxide 29 mmol/L (20-30); Chloride 109 mmol/L (98-107); Glucose 152 mg/dL (74-106); Magnesium 1.6 mg/dL (1.6-2.6); Potassium 3.9 mmol/L (3.5-5.1); Sodium 144 mmol/L (136-145); Total Protein 6.3 g/dL (5.7-8.2)
[2023-11-09] MEDS ORDERED: NITROGLYCERIN 0.4 MG SL TAB SL PRN (23:30)
[2023-11-09] MEDS ORDERED: DEXTROSE (50%) 50ML SYRG IV PRN (23:30)
[2023-11-09] MEDS ORDERED: DOCUSATE SOD 100 MG CAP PO PRN (23:30)
[2023-11-10] MEDS: InsuLIN REG 1unit/0.01ml Soln (100units/ml) SC SCH
[2023-11-10] MEDS: ACCU-CHEK COMFORT CURVE STRIP VI SCH
[2023-11-10] MEDS: HYDROcodone-ACET 5/325MG TAB PO PRN (02:13)
[2023-11-10 03:30] VITALS: PULSE 60; RESP 16; O2SAT 96
[2023-11-10] MEDS: ONDANSETRON HCL 4 MG/2 ML VIAL IV PRN (03:32)
[2023-11-10] MEDS: MORPHINE SULFATE INJ 2 MG/ml SYRG IV PRN (03:33)
[2023-11-10 05:15] LABS: Basophils # (auto) 0 10 ^3/uL (0-0.2); Eosinophils # (auto) 0.1 10 ^3/uL (0-0.8); Eosinophils % (auto) 1.4 % (0.0-7.0); Hematocrit 35.3 % (36.0-46.0); Monocytes # (auto) 0.8 10 ^3/uL (0-1.3); Nucleated Red Blood Cells % 0.1 %
[2023-11-10 05:17] LABS: Basophils % (auto) 0.4 % (0.0-2.0); Hemoglobin 10.8 g/dL (12.2-16.2); Lymphocytes % (auto) 30.1 % (10.0-50.0); Mean Corpuscular Hemoglobin 19.9 pg (28.0-32.0); Mean Corpuscular Hgb Conc. 30.7 g/dL (32.0-36.0); Mean Corpuscular Volume 64.8 fL (80.0-100.0); Neutrophils % (auto) 60.1 % (37.0-80.0); Red Blood Cells 5.45 10^6/uL (4.0-5.20); Red Cell Distribution Width 21.1 % (11.8-14.3)
[2023-11-10 05:38] LABS: Hypochromia Slight; Platelet Estimate Adequate
[2023-11-10 05:43] LABS: Alanine Aminotransferase 34 U/L (7-40); Alkaline Phosphatase 102 U/L (46-116); Anion Gap 4 (5-15); Aspartate Aminotransferase 27 U/L (13-40); BUN/Creatinine Ratio 20.7 (10.0-20.0); Bilirubin, Total 0.4 mg/dL (0.2-1.0); Blood Urea Nitrogen 12 mg/dL (9-23); Calcium 9.3 mg/dL (8.5-10.1); Carbon Dioxide 27 mmol/L (20-30); Chloride 111 mmol/L (98-107); Glucose 124 mg/dL (74-106); Potassium 3.8 mmol/L (3.5-5.1); Sodium 142 mmol/L (136-145); Total Protein 6.1 g/dL (5.7-8.2)
[2023-11-10 08:00] VITALS: PULSE 68; RESP 12; O2SAT 95
[2023-11-10 08:00] LABS: Triglycerides 95 mg/dL (< 150)
[2023-11-10 08:01] LABS: LDL Cholesterol 61 mg/dL (< 100)
[2023-11-10 08:02] LABS: Cholesterol 114 mg/dL (< 200); HDL Cholesterol 41 mg/dL (40-59)
[2023-11-10] MEDS: ZINC SULFATE 220mg CAP or TAB PO SCH (09:13)
[2023-11-10] MEDS: ASCORBIC ACID 500 MG TAB PO SCH (09:13)
[2023-11-10] MEDS: MULTIPLE VITAMIN TAB PO SCH (09:13)
[2023-11-10] MEDS: CARVEDILOL 3.125 MG TAB PO SCH (09:14)
[2023-11-10] MEDS: ENOXAPARIN SOD 40 MG/0.4 ML SYRINGE SC SCH (09:14)
[2023-11-10 10:31] LABS: Urine Bacteria None Seen /hpf (None Seen)
[2023-11-10 10:47] LABS: Urine Blood Negative /uL (Negative); Urine Clarity Clear (Clear); Urine Color Light-Yellow (Yellow); Urine Protein, UAD Negative (Negative); Urine Specific Gravity 1.015 (1.001-1.035); Urine Urobilinogen Normal (Negative); Urine WBC <1 /hpf (0 - 5)
[2023-11-10 15:46] VITALS: BP 124/61; PULSE 66; RESP 18; TEMP 98.4; O2SAT 95
[2023-11-10 16:46] VITALS: BP 124/41; PULSE 66; RESP 17; TEMP 98.4; O2SAT 95
[2023-11-10 20:00] VITALS: PULSE 72
[2023-11-10 21:00] VITALS: BP 116/51; PULSE 66; RESP 17; TEMP 98.5; O2SAT 93
[2023-11-10] MEDS: ATORVASTATIN 20 MG TAB PO SCH (21:51)
[2023-11-11] VITALS (8 sets, daily range): BP systolic 109–130; BP diastolic 51–61; PULSE 52–67; RESP 16–18; TEMP 97.9–98.9; O2SAT 94–96
[2023-11-11] MEDS: IOHEXOL 350 MG/ML 100ML IJ ONE (09:11)
[2023-11-11 11:55] LABS: Basophils # (auto) 0 10 ^3/uL (0-0.2); Basophils % (auto) 0.3 % (0.0-2.0); Eosinophils % (auto) 0.5 % (0.0-7.0); Hemoglobin 10.6 g/dL (12.2-16.2)
[2023-11-11 11:57] LABS: Eosinophils # (auto) 0.1 10 ^3/uL (0-0.8); Hematocrit 34.2 % (36.0-46.0); Lymphocytes # (auto) 1.7 10 ^3/uL (0.4-5.4); Lymphocytes % (auto) 16.1 % (10.0-50.0); Mean Corpuscular Hgb Conc. 31.1 g/dL (32.0-36.0); Mean Corpuscular Volume 64.5 fL (80.0-100.0); Monocytes # (auto) 0.6 10 ^3/uL (0-1.3); Monocytes % (auto) 5.7 % (0.0-12.0); Neutrophils % (auto) 77.4 % (37.0-80.0); Red Blood Cells 5.29 10^6/uL (4.0-5.20); White Blood Cell 10.4 10^3/uL (4.4-10.8)
[2023-11-11 12:03] LABS: Chloride 110 mmol/L (98-107); Potassium 4.2 mmol/L (3.5-5.1); Sodium 141 mmol/L (136-145)
[2023-11-11 12:04] LABS: Anion Gap 3 (5-15); Calcium 9.3 mg/dL (8.5-10.1); Carbon Dioxide 28 mmol/L (20-30)
[2023-11-11 12:09] LABS: BUN/Creatinine Ratio 15.3 (10.0-20.0); Blood Urea Nitrogen 9 mg/dL (9-23); Glucose 184 mg/dL (74-106)
[2023-11-11] MEDS ORDERED: MORPHINE SULF 15mg ER tab PO SCH (14:00)
[2023-11-11] MEDS: ACCU-CHEK COMFORT CURVE STRIP VI SCH (17:10)
[2023-11-11] MEDS: InsuLIN REG 1unit/0.01ml Soln (100units/ml) SC SCH (17:11)
[2023-11-11] MEDS: MORPHINE SULFATE INJ 2 MG/ml SYRG IV PRN (18:20)
[2023-11-11] MEDS: ACETAMINOPHEN 325 MG TAB PO PRN (20:52)
[2023-11-12] VITALS (8 sets, daily range): BP systolic 112–134; BP diastolic 43–71; PULSE 56–70; RESP 15–18; TEMP 98.3–99.5; O2SAT 91–95
[2023-11-12] MEDS: MORPHINE SULFATE INJ 2 MG/ml SYRG IV PRN (00:25)
[2023-11-12] MEDS: INSULIN LANTUS (GLARGINE) 1 /0.01ml (100units/ml) SC SCH (06:01)
[2023-11-12] MEDS ORDERED: INSULIN LANTUS (GLARGINE) 1 /0.01ml (100units/ml) SC SCH (08:00)
[2023-11-13 05:00] VITALS: BP 106/36; PULSE 53; RESP 18; TEMP 98.5; O2SAT 96
[2023-11-13 09:00] VITALS: BP 136/57; PULSE 56; RESP 14; TEMP 97.4; O2SAT 93
== END 2023-11-13 13:05 | DRG 391 ==
LOC: EDBD 20:26 → ER 20:26 → TELE 23:34 → TELE-CENTR 11-10 15:37
PROVIDERS: ADMIT Internal Medicine; ATTEND Internal Medicine
DX: K21.9 Gastro-esophageal reflux disease without esophagitis (principal); J96.01 Acute respiratory failure with hypoxia; I50.32 Chronic diastolic (congestive) heart failure; K44.9 Diaphragmatic hernia without obstruction or gangrene; I11.0 Hypertensive heart disease with heart failure; D64.9 Anemia, unspecified; E11.9 Type 2 diabetes mellitus without complications; E66.9 Obesity, unspecified; E78.5 Hyperlipidemia, unspecified; F20.9 Schizophrenia, unspecified; I25.10 Atherosclerotic heart disease of native coronary artery without angina pectoris; M79.7 Fibromyalgia; R91.1 Solitary pulmonary nodule; K76.9 Liver disease, unspecified; F32.A Depression, unspecified; F41.9 Anxiety disorder, unspecified; J44.9 Chronic obstructive pulmonary disease, unspecified; I25.2 Old myocardial infarction; F17.210 Nicotine dependence, cigarettes, uncomplicated; Z95.5 Presence of coronary angioplasty implant and graft; Z88.1 Allergy status to other antibiotic agents; Z88.0 Allergy status to penicillin; Z90.49 Acquired absence of other specified parts of digestive tract; Z90.710 Acquired absence of both cervix and uterus; Z87.442 Personal history of urinary calculi; Z68.34 Body mass index [BMI] 34.0-34.9, adult; Z82.3 Family history of stroke; Z82.49 Family history of ischemic heart disease and other diseases of the circulatory system; Z83.3 Family history of diabetes mellitus
CPT/HCPCS: 36415; 71045; 71275; 80048; 80053; 80061; 81001; 82962; 83036; 83735; 83880; 84484; 85025; 85379; 85610; 85730; 87081; 93005; 93306; 93970; 96374; G0378; J1815; J2405